=== PATIENT | male | born 1985 | race Two or more races ===

== ENCOUNTER 2024-08-06 11:28 | Inpatient (IN) | payer MEDICAID, SELFPAY ==
[2024-08-06] VITALS (9 sets, daily range): BP systolic 108–156; BP diastolic 58–88; PULSE 83–110; RESP 16–22; TEMP 36.7–38.2; O2SAT 96–100; BMI 34.5
--- NOTE | 2024-08-06 | XR_ITS ---
MRI abdomen, without contrast. MRCP Date and time of exam: August 06, 2024 1854 hrs. Indications: Elevated bilirubin and abdominal pain today, jaundice 12 days Technique: Multiple axial and coronal images of the abdomen have been obtained with the Siemens 1.5T MRI scanner. Images obtained included T1 weighted transverse images, T2-weighted transverse images, T2-weighted transverse images fat-suppressed, T2 weighted haste fat suppressed transverse images, T1 weighted images, in and out of phase images, T2-weighted coronal images, breath hold, T2 weighted haze coronal images as well as T2 weighted coronal thick slab images, MRCP. Findings: Hepatomegaly, 23 cm Splenomegaly, 17 cm Liver is mildly irregular in contour, no focal liver lesions Thickened edematous gallbladder wall, acute cholecystitis pattern No common hepatic or common bile duct stones No definite peripancreatic edema No ascites No hydronephrosis Aorta normal size Impression: Significant hepatosplenomegaly Primary hepatocellular disease Acute acalculous cholecystitis No common hepatic or common bile duct stones
--- NOTE | 2024-08-06 12:09 | PD.EDRME ---
Rapid Medical Screening Exam RME Arrival date/time: 08/06/24 11:28 39-year-old male everyday drinker up until 07/23 presents emergency department today complaints of bloody nose and being jaundice Chief Complaint: Epistaxis/Nasal Foreign Body Time Seen by Provider: 08/06/24 11:34 Vital signs: Vital Signs Temperature 99.1 F 08/06/24 12:05 Pulse Rate 90 08/06/24 12:05 Respiratory Rate 16 08/06/24 12:05 Blood Pressure 123/76 08/06/24 12:05 Pulse Oximetry (%) 98 08/06/24 12:05 Oxygen Delivery Method Room Air 08/06/24 12:05
[2024-08-06 12:49] LABS: Basophils # (Auto) 0.1 Thou/mm3 (0.0-0.2); Basophils % (Auto) 0 % (0-2.5); Eosinophils # (Auto) 0.1 Thou/mm3 (0.0-0.5); Eosinophils % (Auto) 1 % (0-10); Hematocrit 32.1 % (41.0-53.0); Hemoglobin 11.6 g/dL (13.5-16.0); Immature Granulocytes % (Auto) 1 % (0-0); Immature Granulocytes Auto 0.12 Thou/mm3 (0.00-0.00); Lymphocytes # (Auto) 1.4 Thou/mm3 (1.0-4.8); Lymphocytes % (Auto) 10 % (10-50); Mean Corpuscular HGB Conc 36.1 g/dl (31.0-37.0); Mean Corpuscular Hemoglobin 31.9 pg (25.0-35.0); Mean Corpuscular Volume 88 fL (80-100); Monocytes # (Auto) 0.8 Thou/mm3 (0.0-0.8); Monocytes % (Auto) 6 % (0-12); Neutrophils # (Auto) 10.9 Thou/mm3 (1.8-7.7); Neutrophils % (Auto) 82 % (37-80); Nucleated Red Blood Cell % 0 /100 WBC (0); Platelet Count 333 Thou/mm3 (140-440); RDW Standard Deviation 62.9 fL (35.1-43.9); Red Blood Count 3.64 Miln/mm3 (4.50-5.90); White Blood Count 13.4 Thou/mm3 (3.8-10.6)
[2024-08-06 13:13] LABS: INR 2.6 (0.9-1.3); Partial Thromboplastin Time 31.5 Seconds (22.0-36.0); Prothrombin Time 26.9 Seconds (9.0-12.2)
[2024-08-06 13:14] LABS: Ammonia 31 uMol/L (11-32)
[2024-08-06 13:30] LABS: Alanine Aminotransferase 142 U/L (10-49); Albumin, Serum 3.2 gm/dL (3.5-5.0); Albumin/Globulin Ratio 0.8 (1.2-2.2); Anion Gap 10 (7-16); Aspartate Amino Transferase 284 U/L (0-34); BUN/Creatinine Ratio 16 Ratio (12-20); Blood Urea Nitrogen 11 mg/dL (9-23); Calcium 7.6 mg/dL (8.3-10.6); Calcium (Corrected) 8.2 mg/dL (8.5-10.1); Carbon Dioxide 20.8 mMol/L (20.0-31.0); Chloride 98 mMol/L (98-107); Creatinine (Component) 0.7 mg/dL (0.6-1.3); Estimated Creatinine Clearance 168.4 mL/min (>60); Glucose 116 mg/dL (74-106); Osmolality,Calculated 259 (275-295); Sodium 129 mMol/L (136-145); Total Protein 7.2 gm/dL (5.7-8.2); eGFR > 60 See Note
[2024-08-06 13:31] LABS: Alkaline Phosphatase 139 U/L (46-116); Lipase 72 U/L (12-53)
[2024-08-06 13:32] LABS: Bilirubin,Total 23.1 mg/dL (0.3-1.2); Potassium 2.6 mMol/L (3.4-5.1)
[2024-08-06 14:18] LABS: Hepatitis A Antibody IgM Non Reactive (Non React); Hepatitis B Core Antibody IgM Non Reactive (Non React); Hepatitis B Surface Antigen Non Reactive (Non React); Hepatitis C Antibody Non Reactive (Non React)
--- NOTE | 2024-08-06 14:32 | EDNOTE_ITS ---
ED Epistaxis RME/HPI General Chief complaint: Epistaxis/Nasal Foreign Body Stated complaint: NOSE BLEEDING ON/OFF SINCE YESTERDAY Time Seen by Provider: 08/06/24 11:34 Arrival date/time: 08/06/24 11:28 RME / HPI RME / HPI Narrative: 08/06/24 11:28 39-year-old male everyday drinker up until 07/23 presents emergency department today complaints of bloody nose and being jaundice MAIN ED EVALUATION 39 year old male with history of fatty liver presents to the ED for evaluation of nose bleed beginning this morning. States he had been sick with URI and shortly after blowing his nose this morning began to bleed from the left nostril. States he was unable to control the bleeding at home, prompting ED visit. No trauma reported. Denies any other bleeding. Denies blood in stool; stool was dark brown this morning. Denies fevers, pain, vomiting, diarrhea, abdominal pain, or urinary symptoms. States he was drinking about 2 beers daily after work. Stated on 07/23/2024 noticed his skin was yellowing and stopped drinking. Last drank alcohol 12 days ago. Denies seeking any medical attention since changes in skin color. Related Data Home Medications ?Medication ?Instructions ?Recorded ?Confirmed No Known Home Medications 09/22/23 09/22/23 Allergies Allergy/AdvReac Type Severity Reaction Status Date / Time pregabalin [From Lyrica] Allergy Severe Swelling Verified 08/06/24 11:33 of Lip/Tongue/Throat tramadol Allergy Severe Nausea Verified 08/06/24 11:33 Review of Systems Review of Systems Narrative Review of Systems: GEN: No fever, no chills, no weight loss EYES: No discharge, no visual changes, no pain HEENT: +nose bleed. No ear pain, no congestion, no sore throat PULM: No shortness of breath, no cough, no congestion CV: No chest pain, no palpitations GI: No nausea, no vomiting, no diarrhea, no pain, no constipation : No frequency, no urgency and no dysuria MUSC/SKEL No joint pain, no back pain SKIN: No rash, +skin yellowing NEURO: No weakness, no headache Past Medical History Past Medical History CARDIAC: Negative Congestive Heart Failure RESPIRATORY: Negative Chronic Obstructive Pulmonary Disease (COPD) GENITOURINARY: Negative Renal Disease ENDOCRINE: Negative Diabetes Mellitus Type 1 or Diabetes Mellitus Type 2 Social History SMOKING STATUS: Never smoker ED Exam Narrative Physical exam: GENERAL APPEARANCE: Well hydrated, well nourished, in no acute distress. Jaundice. VITALS: All vitals were reviewed and the pulse ox is 98% on room air which is normal according to my interpretation. HEENT: Normocephalic, atramatic, EOMI, EACs are patent. scleral icterus. There is no bulge or retraction. Throat without erythema or exudate. Moist oromucosa. No jaundice NECK: Supple, no JVD or bruits. CARDIOVASCULAR: Heart regular without S3-S4 or murmur. No rubs or gallops. LUNGS/CHEST: Clear to auscultation bilaterally. No rales, rhonchi, or wheezing. Normal inspection. ABDOMEN: Soft, nontender, with normal bowel sounds. No pulsatile masses. No rebound, rigidity, or guarding. No incarcerated hernia. Normal inspection and palpation. EXTREMITIES: Normal inspection and palpation. No edema, clubbing, or cyanosis. Intact CSM SKIN: Jaundice. Warm and dry without rashes. MUSCULOSKELETAL: Normal inspection. No gross deformity, full ROM all extremities NEURO: Alert and oriented x3. Cranial nerves II through XII grossly intact. There are no other motor or sensory deficits noted. PSYCHIATRIC: Normal mood and affect. No psychosis. Course Quality Measures none Orders Category Date Time Status MRI Screening NOW Care 08/06/24 14:30 Active MR MRCP Stat Exams 08/06/24 Ordered Ammonia Stat Lab 08/06/24 12:22 Completed CBC Stat Lab 08/06/24 12:22 Completed Comprehensive Metabolic Panel Stat Lab 08/06/24 12:22 Completed HIV (1&2) Antibody Rapid Stat Lab 08/06/24 12:22 Completed Hepatitis Acute Panel Stat Lab 08/06/24 12:22 Completed Lipase Stat Lab 08/06/24 12:22 Completed Partial Thromboplastin Time Stat Lab 08/06/24 12:22 Completed Prothrombin Time with INR Stat Lab 08/06/24 12:22 Completed Calcium Gluconate 10% Inj Med 08/06/24 14:51 Discontinued 1 gm IV X1 ONE Oxymetazoline Jadiel [place] 0.05% [Afrin Nasal [place]] Med 08/06/24 14:49 Discontinued See Dose Instructions NASAL X1 ONE POTASSIUM CHL 10 mEq IVPB [Kcl Ivpb] Med 08/06/24 14:49 Discontinued 10 meq in 100 ml IV Q1H Potassium Chloride [K-Dur] Med 08/06/24 14:49 Discontinued 40 meq PO X1 ONE Sodium Chloride 0.9% 1000 ml [Ns] 1,000 ml Med 08/06/24 14:30 Active IV 125 mls/hr Vital Signs Vital signs: Vital Signs Temperature 99.1 F 08/06/24 12:05 Pulse Rate 90 08/06/24 12:05 Respiratory Rate 16 08/06/24 12:05 Blood Pressure 123/76 08/06/24 12:05 Pulse Oximetry (%) 98 08/06/24 12:05 Oxygen Delivery Method Room Air 08/06/24 12:05 Epistaxis MDM Narrative MDM Narrative:: IMayra, am scribing for and in the presence of . CBC showing a white count of 13,000. Hemoglobin of 11.6. Sodium of 129. Potassium of 2.6. And we are giving the patient potassium supplement. Lipase is negative. The rest of CMP is negative. Calcium is 7.6 and we are giving him some calcium by IV. Ammonia is negative. Pro time is 97. Hepatitis panel is negative. HIV 1 and 2 is negative. Total bilirubin though is 23 which is skyhigh. The patient said that he did have a history of fatty liver but never diagnosed with liver cirrhosis. AST ALT and alk phos are slightly elevated as well. Nosebleed has subsided in the emergency department. In fact it stopped after the nosebleed gel was applied. No further intervention necessary at this time. I advised the patient not to blow his nose and out to pick in his nose. There is no postnasal drip. For the elevated total bilirubin which is a surprise, the patient is supposed to get a MRCP as I ordered. I am giving the patient IV fluid as well. And I will keep the patient NPO. For his coagulopathy, I am going to order for 1 unit of FFP. 6 PM, still pending MRCP, the patient is stable and is signed out to Dr. Cates Critical care time is approximately 35 minutes excluding any procedure. The high probability of sudden, clinically significant deterioration in the patient?s condition required the highest level of my preparedness to intervene urgently. The services I provided to this patient were to treat and/or prevent clinically significant deterioration. Services included the following: chart data review, r eviewing nursing notes and/or old charts, documentation time, sap business intelligence consultant collaboration regarding findings and treatment options, medication orders and management, direct patient care, vital sign assessments and ordering, interpreting and reviewing diagnostic studies and lab tests. Aggregate critical care time includes only time during which I was engaged in work directly related to the patient?s care, as described above, whether at bedside or elsewhere in the Emergency Department. It did not include time spent performing other reported procedures or the services of residents, students, nurses or physician assistants. Patient data External records reviewed:: [facility] previous records (I reviewed ED visit on 09/22/2023) Clinical information provided by:: patient Social determinants that could affect healthcare access:: alcohol use (2 beers after work daily although states he last drank 12 days ago ) Patient has the following chronic illnesses:: Fatty liver How is presenting disease/condition affected by chronic disease/condition?: exacerbated by Evaluation data The following diagnostics were reviewed and interpreted by me:: lab results and radiology exam(s) Lab and/or radiology exams considered but not ordered:: None Interpretation Summary: As noted above Medications / Prescriptions Medications or Prescriptions considered but not ordered:: None Medication administrations:: Medication Administration History Sodium Chloride (Ns) 1,000 mls @ 125 mls/hr IV .Q8H ONE Stop: 08/06/24 22:29 Last Admin: 08/06/24 15:20 Dose: 125 mls/hr Documented By: CHAVA Discontinued Medications Calcium Gluconate (Calcium Gluconate 10% Inj 1 Gm/10 Ml Vial) 1 gm IV X1 ONE Stop: 08/06/24 14:52 Last Admin: 08/06/24 15:18 Dose: 1 gm Documented By: CHAVA Potassium Chloride (Kcl Ivpb) 10 meq in 100 mls @ 100 mls/hr IV Q1H STA Stop: 08/06/24 15:48 Last Infusion: 08/06/24 16:20 Dose: Infused Documented By: Admin: 08/06/24 15:18 Dose: 100 mls/hr Documented By: CHAVA Oxymetazoline HCl (Oxymetazoline Jadiel [place] 0.05% 15 Ml Btl) 0 spray NASAL X1 ONE Stop: 08/06/24 14:50 Last Admin: 08/06/24 15:15 Dose: 1 spray Documented By: CHAVA Potassium Chloride (Potassium Chloride 20 Meq Tabcr) 40 meq PO X1 ONE Stop: 08/06/24 14:50 Last Admin: 08/06/24 15:16 Dose: 40 meq Documented By: CHAVA See above Consultations Consultation(s) initiated? (list below): No Diagnosis Most likely diagnosis given after review of the tests above:: Epistaxis Admission Indicated Admission indicated?: not indicated Admission Request Was there a request for admission?: No Disposition Plan Disposition Plan: other (specify) (Signed out pending [facility]) Discharge Plan Plan Disposition Comment: Stable at signout pending [facility] Prescriptions/Referrals Prescriptions/Med Rec: No Action No Known Home Medications Referrals: Arturo Jean MD [Primary Care Provider] - In 1 week Problem List Clinical Impression: Epistaxis, Coagulopathy, Hyperbilirubinemia, Acute hypokalemia, Hypocalcemia Patient/Caregiver Discharge Instructions Print Language: Palestinian
[2024-08-06] MEDS: OXYMETAZOLINE NAS SPRY 0.05% 15 ML BTL NASAL (15:15)
[2024-08-06] MEDS: POTASSIUM CHLORIDE 20 mEq TABCR 40 MEQ PO (15:16)
[2024-08-06] MEDS: CALCIUM GLUCONATE 10% INJ 1 GM/10 ML VIAL IV (15:18)
[2024-08-06] MEDS: POTASSIUM CHL 10 mEq IVPB 10 MEQ/100 ML BAG 100 MEQ IV (15:18)
[2024-08-06] MEDS: SODIUM CHLORIDE 0.9% 1000 ML 1,000 ML 125 ML IV (15:20)
[2024-08-06 15:24] LABS: HIV (1&2) Antibody Rapid Non-Reactive
--- NOTE | 2024-08-06 18:06 | XR_ITS ---
Examination: CT abdomen with intravenous contrast CT pelvis with intravenous contrast 2-D coronal reconstructions 2-D sagittal reconstructions Date and time of exam:August 06, 20242025 hrs. Comparison November 04, 2021 Indications: Jaundice on clinical examination today. CTDI: vol (mGy) 10.4 DLP: (mGycm) 740 Technique: Multiple axial sections of the abdomen and pelvis have been obtained. 64 slice high-resolution scanner used. 3 mm axial sections have been obtained, post intravenous injection 60 cc [id number] 2-D sagittal, coronal reconstructions obtained. Low dose protocols were performed. One or more of the following dose reduction techniques were used; automated exposure control, adjustment of the mA and/or KV according to patient size, use of iterative reconstruction technique. Findings: Diffuse fatty infiltration throughout the liver, hepatomegaly 24 cm liver irregular in contour Splenomegaly AP dimension 14 cm Gallbladder wall thickening and edema No pancreatic or adrenal mass No renal or ureteral calculi, no hydronephrosis No bowel obstruction No CT findings of appendicitis or diverticulitis Urinary bladder shows mild wall thickening, cystitis pattern Moderate osteopenia Impression: Cirrhosis, hepatomegaly, diffuse fatty infiltration throughout the liver Splenomegaly Acute calculus cholecystitis,. Normal appendix
--- NOTE | 2024-08-06 18:06 | XR_ITS ---
Examination: Abdomen sonogram, Limited Date and time of exam: August 06, 2024 1813 hrs. Indications: Jaundice today Technique: Real-time eli scale transabdominal sonographic images of the upper abdomen obtained. Findings: Negative for gallstones Gallbladder wall is thickened 0.4 cm Common bile duct 0.4 cm Pancreatic head 3.7 cm Liver 19 cm fatty infiltration no focal liver lesions Normal hepatopedal portal venous flow Patent IVC Impression: Suspicious for acute acalculous cholecystitis Significant hepatomegaly fatty liver
[2024-08-06] MEDS: POTASSIUM CHLORIDE 10% 20 MEQ/15 ML UDC 40 MEQ PO (18:26)
--- NOTE | 2024-08-06 18:28 | PD.EDADDENDU ---
Emergency Room Addendum <Chuyita Jean - Last Filed: 08/06/24 22:04> Addendum Narrative: 1800: Care assumed from , the previous shift emergency physician. Past medical, surgical, social and family history reviewed. Vitals and home medications reviewed. Results and treatment plan discussed. I will assume the care of the patient at this time and will follow the patient, pending MRCP. Please refer to the emergency department record for history and examination from initial visit. I reviewed all diagnostic test results. My interpretation of the EKG is My interpretation of the chest x-ray is My review of the CT report is Blood tests and urine tests At this point, diagnoses include Treatment here included Significant improvement 2132: Discussed case with [Dr. Portillo] from [general surgery] regarding [consultation]. Discussed patients ED course, exam findings, labs, and radiology results. States the patient is not a surgical candidate at this time due to his liver failure. 2136: Discussed case with [Dr. Valderrama] from [GI] regarding [consultation]. Discussed patients ED course, exam findings, labs, and radiology results. States to admit the patient. Agrees to consult. 2201: Discussed case with [the resident physician, attending Dr. Melendez] from Hospitalist service regarding admission. Discussed patients ED course, exam findings, labs, and radiology results. The Hospitalist [agrees] to accept the patient for admission. <Cuate Cates MD - Last Filed: 08/06/24 22:28> Addendum Narrative: 1800: Care assumed from , the previous shift emergency physician. Past medical, surgical, social and family history reviewed. Vitals and home medications reviewed. Results and treatment plan discussed. I will assume the care of the patient at this time and will follow the patient, pending MRCP. Please refer to the emergency department record for history and examination from initial visit. I reviewed all diagnostic test results. At this point, diagnoses include acute liver failure, acute cholecystitis, hypokalemia, hypocalcemia, epistaxis, coagulopathy, and UTI. Treatment here included KCl, Zosyn, and calcium gluconate. He remained stable. 2132: Discussed case with [Dr. Portillo] from [general surgery] regarding [consultation]. Discussed patient's ED course, exam findings, labs, and radiology results. States the patient is not a surgical candidate at this time due to his liver failure. 2136: Discussed case with [Dr. Valderrama] from [GI] regarding [consultation]. Discussed patient's ED course, exam findings, labs, and radiology results. States to admit the patient. Agrees to consult. 2201: Discussed case with [the resident physician, attending Dr. Melendez] from Hospitalist service regarding admission. Discussed patients ED course, exam findings, labs, and radiology results. The Hospitalist [agrees] to accept the patient for admission.
[2024-08-06 18:49] LABS: Collection Type, Urine Clean Catch
[2024-08-06 19:03] LABS: Amphetamine/Methamp Scrn,U Negative (Negative); Bacteria,Urine 1+; Barbiturate Screen,Urine Negative (Negative); Benzodiazepines Screen,Urine Negative (Negative); Benzoylecgonine Screen, Ur Negative (Negative); Bilirubin,Urine 4+ (Negative); Blood,Urine Negative (Negative); Budding Yeast,Urine Present; Clarity,Urine Turbid (Clear/Hazy); Color,Urine Drk-Yellow (Lt Yel-Yel); Fentanyl Screen,Urine Negative (Negative); Glucose, Urine Negative (Negative); Ketones,Urine Negative (Negative); Leukocyte Esterase,Urine Negative (Negative); Nitrite,Urine Negative (Negative); Opiate Screen,Urine Negative (Negative); PH,Urine 6.5 (5.0-7.0); Protein,Urine 1+ (Neg - Trace); RBC,Urine 22 /hpf (0-3); Specific Gravity,Urine 1.022 (1.001-1.035); Squamous Epithelial Cell,Urine < 1 /hpf (0-5); THC Screen,Urine Negative (Negative); Urobilinogen,Urine Negative mg/dL (0.0-1.0); WBC,Urine 29 /hpf (0-5)
[2024-08-06 19:03] LABS: Alcohol, Blood Medical < 10.0 mg/dL (0-10.0); Amylase 56 U/L (30-118); Magnesium 2.4 mg/dL (1.6-2.6)
[2024-08-06 19:05] LABS: Culture Indicated,Urine Yes
--- NOTE | 2024-08-06 20:14 | PC.NURSE ---
pt to us via wheelchair at this time.
--- NOTE | 2024-08-06 20:35 | PRELIM_ITS ---
MR Cholangiopancreatography without intravenous contrast. August 06, 2024 1844 hours Clinical Histo ry: Total bilirubin 23 Comparison: No prior study is available for comparison. Findings:The liver is enlarged measuring 23 cm. Mild periportal edema is seen. Mild gallbladder wall thickening with peric holecystic fluid is seen. No evidence of gallbladder calculus. There is no intrahepatic or extrahepat ic biliary duct dilatation. The common bile duct is normal in caliber at 3 mm without evidence of int raluminal calculus/ stricture. The pancreatic duct is not dilated. The spleen is enlarged measuring 1 7 cm. Nonspecific perinephric fat stranding is noted bilaterally. There is mild thickening of the adr enals. The pancreas appears unremarkable.No evidence of bowel obstruction.The marrow signal appears u nremarkable to the extent visualized.The lung bases are clear.Impression:Mild gallbladder wall thicke garry with pericholecystic fluid, suspicious for acute cholecystitis.No evidence of biliary obstructio n.Hepatosplenomegaly. Report Electronically Signed By: Debora Rivas 08/06/2024 8:35:41 PM [EST]
[2024-08-06] MEDS: PIPER/TAZO INJ 3.375 GM in SODIUM CHLORIDE 0.9% (P) 50 ML IV (21:41)
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
[2024-08-06] MEDS: CEFEPIME INJ 2 GM in SODIUM CHLORIDE 0.9% (P) 50 ML IV (23:27)
[2024-08-06] MEDS: metroNIDAZOLE/NS 500 MG IVPB 500 MG/100 ML BAG 200 MG IV (23:30)
[2024-08-06 23:33] LABS: Calcium, Ionized 3.9 mg/dL (4.6-5.6)
[2024-08-07] VITALS (15 sets, daily range): BP systolic 114–133; BP diastolic 59–70; PULSE 90–102; RESP 18–29; TEMP 35.9–38.1; O2SAT 94–97; BMI 34.9
[2024-08-07 00:28] LABS: Bilirubin,Direct 16.5 mg/dL (0.0-0.3)
[2024-08-07] MEDS: POTASSIUM CHLORIDE 20 mEq TABCR 40 MEQ PO (00:34)
[2024-08-07 00:36] LABS: Iron 98 mcg/dL (65-175)
[2024-08-07 00:52] LABS: Ferritin 603 ng/mL (10.5-307.3); Percent Iron Saturation 47 % (20-55); Total Iron Binding Capacity 208 mcg/dL (250-425); Unsaturated Iron Binding 110 (225-295)
[2024-08-07 01:41] LABS: Mono Screen Negative (Negative)
[2024-08-07] MEDS: CEFEPIME INJ 2 GM in SODIUM CHLORIDE 0.9% (P) 50 ML IV ×3 (05:04→21:18)
[2024-08-07] MEDS: metroNIDAZOLE/NS 500 MG IVPB 500 MG/100 ML BAG 200 MG IV ×3 (05:06→21:19)
[2024-08-07 05:59] LABS: Misc Send Out* See Sep Rpt
[2024-08-07 06:00] LABS: Basophils % (Auto) 0 % (0-2.5); Eosinophils # (Auto) 0.1 Thou/mm3 (0.0-0.5); Eosinophils % (Auto) 1 % (0-10); Hematocrit 23.3 % (41.0-53.0); Immature Granulocytes % (Auto) 1 % (0-0); Immature Granulocytes Auto 0.17 Thou/mm3 (0.00-0.00); Lymphocytes # (Auto) 1.9 Thou/mm3 (1.0-4.8); Lymphocytes % (Auto) 14 % (10-50); Mean Corpuscular HGB Conc 35.6 g/dl (31.0-37.0); Mean Corpuscular Volume 90 fL (80-100); Monocytes # (Auto) 0.9 Thou/mm3 (0.0-0.8); Monocytes % (Auto) 7 % (0-12); Neutrophils # (Auto) 10.5 Thou/mm3 (1.8-7.7); Neutrophils % (Auto) 77 % (37-80); Nucleated Red Blood Cell % 0 /100 WBC (0); Platelet Count 329 Thou/mm3 (140-440); RDW Standard Deviation 65.6 fL (35.1-43.9); Red Blood Count 2.59 Miln/mm3 (4.50-5.90); White Blood Count 13.7 Thou/mm3 (3.8-10.6)
[2024-08-07 06:09] LABS: Hemoglobin 8.3 g/dL (13.5-16.0)
[2024-08-07 06:15] LABS: Partial Thromboplastin Time 30.3 Seconds (22.0-36.0)
[2024-08-07 06:20] LABS: Parathyroid Hormone Intact 32.9 pg/ml (18.5-88.0)
[2024-08-07 06:23] LABS: INR 2.2 (0.9-1.3); Prothrombin Time 22.7 Seconds (9.0-12.2)
[2024-08-07 06:30] LABS: Alanine Aminotransferase 115 U/L (10-49); Albumin, Serum 2.9 gm/dL (3.5-5.0); Albumin/Globulin Ratio 0.9 (1.2-2.2); Alkaline Phosphatase 114 U/L (46-116); Anion Gap 7 (7-16); Aspartate Amino Transferase 236 U/L (0-34); BUN/Creatinine Ratio 20 Ratio (12-20); Blood Urea Nitrogen 16 mg/dL (9-23); Calcium 7.6 mg/dL (8.3-10.6); Calcium (Corrected) 8.5 mg/dL (8.5-10.1); Carbon Dioxide 22.8 mMol/L (20.0-31.0); Chloride 103 mMol/L (98-107); Cholesterol 158 mg/dL (132-200); Creatinine (Component) 0.8 mg/dL (0.6-1.3); Estimated Creatinine Clearance 145.6 mL/min (>60); Globulin 3.4 gm/dL (2.3-3.5); Glucose 111 mg/dL (74-106); HDL Cholesterol < 5 mg/dL (40-60); Magnesium 2.4 mg/dL (1.6-2.6); Osmolality,Calculated 268 (275-295); Phosphorous 2.2 mg/dL (2.4-5.1); Potassium 3.4 mMol/L (3.4-5.1); Sodium 133 mMol/L (136-145); Thyroid Stimulating Hormone 1.04 uIU/mL (0.55-4.78); Total Protein 6.3 gm/dL (5.7-8.2); Triglycerides 455 mg/dL (30-150); eGFR > 60 See Note
--- NOTE | 2024-08-07 06:50 | PC.NURSE ---
Recvd order for radha drain, No IR available today, Too LARSON made aware.
[2024-08-07 07:05] LABS: Bilirubin,Total 20.1 mg/dL (0.3-1.2)
--- NOTE | 2024-08-07 08:45 | PC.SS ---
SS follow up note; Pending Dr. Valderrama's Rec's as well as Surgery rec's.
--- NOTE | 2024-08-07 09:20 | ESPR_ITS ---
<Statement entered by Chriss Lyon MD - 08/07/24 17:40> Patient was examined bedside this morning, surgery said no active intervention, IR is not available today, will monitor his nose bleed closely. poor prognosis explained to the patient . his last drink was 2 weeks ago . GI on board . I discussed with and supervised my co-resident involved in the care of this patient. I agree with the assessment and plan as documented above. Chriss Lyon,PGY-3 Disclaimer: Despite multiple revisions, due to the dictation software being used, the document below may not be free of grammatical errors including phonetic/typographic errors. However, this does not deter from our commitment to providing health care in the patient's best interest in mind. Documentation for date of: 08/07/24 Subjective Subjective Interval history: Patient was seen and examined at bedside this AM. No acute exents overnight. Patient tolerating diet, adequate urine output and mentation is at baseline. Patient endorses improvement of his nosebleed. Also endorses 1 episode of dark stool this morning which he thinks is due to swallowing a lot of blood In the ED patient received 1 unit FFP. Patient had MRCP done which showed acute acalculous cholecystitis. On exam patient is nontender to palpation in all abdominal quadrants. Acalculous cholecystitis unlikely GI, Dr. Valderrama consulted and closely following the case. Appreciate recommendations General Surgery, Dr Portillo consulted and closely following. Appreciate recommendation Exam Vital Signs Temp Pulse Resp BP Pulse Ox O2 Del Method 97.8 F 99 20 122/70 94 L Room Air 08/07/24 08:00 08/07/24 08:00 08/07/24 08:00 08/07/24 08:00 08/07/24 08:00 08/07/24 08:00 Narrative Exam Constitutional Alert, oriented x 3 and comfortable. Young obese male, scleral icterus, generalized jaundice HEENT Vision grossly intact. Patent nares. Trachea midline Respiratory Chest normal on inspection and clear auscultation bilaterally Cardiovascular S1 and S2 audible, RRR. No murmurs carotid bruit. No gross JVD. Abdominal Soft, obese, mildly distended, striae, positive fluid thrill and shifting dullness and non tender to palpation in all quadrants. BS + negative asterixis Genitourinary No bladder tenderness, no flank pain. Normal to palpation Musculoskeletal Extremities tone within normal limits. No LE edema. Neurological CN II - XII grossly intact. Extremity motor and sensation grossly intact. Skin Warm, dry and intact. No apparent lesions. Psychiatric Patient has good affect, is cooperative Objective Labs 08/08/24 05:00 08/08/24 05:12 Labs: Laboratory Results - last 24 hr 08/06/24 08/06/24 08/06/24 12:22 18:17 18:40 WBC 13.4 H RBC 3.64 L Hgb 11.6 L Hct 32.1 L MCV 88 MCH 31.9 MCHC 36.1 RDW Std Deviation 62.9 H Plt Count 333 Neut % (Auto) 82 H Lymph % (Auto) 10 Motley % (Auto) 6 Eos % (Auto) 1 Baso % (Auto) 0 Neut # (Auto) 10.9 H Lymph # (Auto) 1.4 Motley # (Auto) 0.8 Eos # (Auto) 0.1 Baso # (Auto) 0.1 Immature Gran # (Auto) 0.12 H Absolute Nucleated RBC 0.00 Immature Gran % 1 H Nucleated RBC % 0 PT 26.9 H INR 2.6 H APTT 31.5 Sodium 129 L Potassium 2.6 L* Chloride 98 Carbon Dioxide 20.8 Anion Gap 10 BUN 11 Creatinine 0.7 Estim Creat Clear Calc 168.4 eGFR > 60 BUN/Creatinine Ratio 16 Glucose 116 H Calculated Osmolality 259 L Calcium 7.6 L Corrected Calcium 8.2 L Ionized Calcium Phosphorus Magnesium 2.4 Iron TIBC Iron Saturation Unsat Iron Binding Ferritin Total Bilirubin 23.1 H* Direct Bilirubin AST 284 H ALT 142 H Alkaline Phosphatase 139 H Ammonia 31 Total Protein 7.2 Albumin 3.2 L Globulin 4.0 H Albumin/Globulin Ratio 0.8 L Triglycerides Cholesterol LDL Cholesterol, Calc HDL Cholesterol Cholesterol/HDL Ratio Amylase 56 Lipase 72 H TSH PTH Intact Ur Collection Type Clean Catch Urine Color Drk-Yellow A Urine Clarity Turbid A Urine pH 6.5 Ur Specific Tarpley 1.022 Urine Protein 1+ A Urine Glucose (UA) Negative Urine Ketones Negative Urine Blood Negative Urine Nitrite Negative Urine Bilirubin 4+ A Urine Urobilinogen (Auto) Negative Ur Leukocyte Esterase Negative Urine RBC 22 H Urine WBC 29 H Ur Squamous Epith Cells < 1 Urine Bacteria 1+ A Urine Yeast (Budding) Present A Ur Culture Indicated? Yes Urine Opiates Screen Negative Urine Fentanyl Screen Negative Ur Barbiturates Screen Negative U Amphetamin/Meth Scrn Negative U Benzodiazepines Scrn Negative U Cocaine Metab Screen Negative U Marijuana (THC) Screen Negative Ethyl Alcohol < 10.0 Hepatitis A IgM Ab Non Reactive Hep Bs Antigen Non Reactive Hep B Core IgM Ab Non Reactive Hepatitis C Antibody Non Reactive Monoscreen Negative HIV 1&2 Antibody Rapid Non-Reactive Blood Type O Positive Antibody Screen NEGATIVE Blood Bank Wristband ID Yes Blood Bank Comment FFP Ready 08/06/24 08/07/24 23:23 05:32 WBC 13.7 H RBC 2.59 L Hgb 8.3 L D Hct 23.3 L MCV 90 MCH 32.0 MCHC 35.6 RDW Std Deviation 65.6 H Plt Count 329 Neut % (Auto) 77 Lymph % (Auto) 14 Motley % (Auto) 7 Eos % (Auto) 1 Baso % (Auto) 0 Neut # (Auto) 10.5 H Lymph # (Auto) 1.9 Motley # (Auto) 0.9 H Eos # (Auto) 0.1 Baso # (Auto) 0.0 Immature Gran # (Auto) 0.17 H Absolute Nucleated RBC 0.00 Immature Gran % 1 H Nucleated RBC % 0 PT 22.7 H D INR 2.2 H APTT 30.3 Sodium 133 L Potassium 3.4 D Chloride 103 Carbon Dioxide 22.8 Anion Gap 7 BUN 16 Creatinine 0.8 Estim Creat Clear Calc 145.6 eGFR > 60 BUN/Creatinine Ratio 20 Glucose 111 H Calculated Osmolality 268 L Calcium 7.6 L Corrected Calcium 8.5 Ionized Calcium 3.9 L Phosphorus 2.2 L Magnesium 2.4 Iron 98 TIBC 208 L Iron Saturation 47 Unsat Iron Binding 110 L Ferritin 603 H Total Bilirubin 20.1 H* D Direct Bilirubin 16.5 H AST 236 H ALT 115 H Alkaline Phosphatase 114 D Ammonia Total Protein 6.3 Albumin 2.9 L Globulin 3.4 Albumin/Globulin Ratio 0.9 L Triglycerides 455 H Cholesterol 158 LDL Cholesterol, Calc TNP HDL Cholesterol < 5 L Cholesterol/HDL Ratio 31.0 H Amylase Lipase TSH 1.04 PTH Intact 32.9 Ur Collection Type Urine Color Urine Clarity Urine pH Ur Specific Tarpley Urine Protein Urine Glucose (UA) Urine Ketones Urine Blood Urine Nitrite Urine Bilirubin Urine Urobilinogen (Auto) Ur Leukocyte Esterase Urine RBC Urine WBC Ur Squamous Epith Cells Urine Bacteria Urine Yeast (Budding) Ur Culture Indicated? Urine Opiates Screen Urine Fentanyl Screen Ur Barbiturates Screen U Amphetamin/Meth Scrn U Benzodiazepines Scrn U Cocaine Metab Screen U Marijuana (THC) Screen Ethyl Alcohol Hepatitis A IgM Ab Hep Bs Antigen Hep B Core IgM Ab Hepatitis C Antibody Monoscreen HIV 1&2 Antibody Rapid Blood Type Antibody Screen Blood Bank Wristband ID Blood Bank Comment Quality Measures Quality Measures none Assessment & Plan Assessment Current Active Medications: Generic Name Dose Route Start Last Admin Trade Name Freq PRN Reason Stop Dose Admin Acetaminophen 650 mg 08/06/24 23:06 Acetaminophen 325 Mg Tablet PO 09/05/24 22:41 Q8HR PRN Pain 1-3 and/or Fever >101 Folic Acid 1 mg 08/07/24 09:00 Folic Acid 1 Mg Tablet PO 08/12/24 08:59 BID EFE Furosemide 20 mg 08/07/24 09:00 Furosemide Inj 10 Mg/Ml 4ml Vial IVP 09/06/24 08:59 QDAY EFE Cefepime HCl 2 gm/ Sodium 50 mls @ 100 mls/hr 08/07/24 06:00 08/07/24 05:04 Chloride IV 08/13/24 22:45 100 mls/hr Q8HR EFE Administration Metronidazole 500 mg in 100 mls @ 200 mls/hr 08/07/24 06:00 08/07/24 05:06 Flagyl 500 Mg Iv IV 08/14/24 05:59 200 mls/hr Q8HR EFE Administration Lactulose 10 gm 08/07/24 09:00 Lactulose Syrup 20 Gm/30 Ml Udc PO 09/06/24 08:59 QDAY EFE Protocol Lorazepam 0.5 mg 08/06/24 23:48 Lorazepam 0.5 Mg Tablet PO 08/11/24 23:47 Q4HR PRN CIWA Score 2-6 Lorazepam 1 mg 08/06/24 23:48 Lorazepam 0.5 Mg Tablet PO 08/11/24 23:47 Q4HR PRN CIWA SCORE 7-11 Lorazepam 2 mg 08/06/24 23:48 Lorazepam 0.5 Mg Tablet PO 08/11/24 23:47 Q4HR PRN CIWA SCORE 12-15 Ondansetron HCl 4 mg 08/06/24 22:42 Ondansetron Inj 2 Mg/Ml Inj 2 Ml IV 09/05/24 22:41 Q6H PRN NAUSEA OR VOMITING Protocol Spironolactone 25 mg 08/07/24 09:00 Spironolactone 25 Mg Tablet PO 09/06/24 08:59 BID [facility] Thiamine HCl 100 mg 08/07/24 09:00 Thiamine 100 Mg Tablet PO 08/12/24 08:59 BID EFE Plan 39-year-old male with past medical history of undiagnosed hypertension, recently diagnosed cirrhosis secondary to alcohol use disorder presenting to the ED on 08/06 with nosebleed and yellow skin will be admitted for treatment of acute calculus cholecystitis with IV antibiotics, general surgery and GI have been consulted and are following the patient. 1. Acute blood loss anemia secondary to epistaxis 2. Coagulopathy Patient presented with epistaxis since last night and endorses swallowing a lot of blood as well. This morning he had some dark stools. On admission patient's Hb 11.6 which down trended to 8.4 PT 22.7, INR 2.1, APTT 30.3 In the ED patient received 1 unit FFP and vitamin K 5 Mg SC x 1 Plan: ? Type and screen ? 2 units PRBC ordered for standby ? 1 unit FFP ordered for standby ? Repeat H&H and coagulation panel at 2 PM 3. Decompensated alcoholic cirrhosis with coagulopathy 4. Hyperbilirubinemia 5. Transaminitis On admission patient presented with epistaxis. He has a 15-year history of alcohol use, previously drank 2 beers a day along with 2?3 shots a day. Last drink on 07/23/2024. On exam patient has scleral icterus, generalized jaundice, abdominal striae and shifting dullness on percussion. On gallbladder ultrasound liver was 19 cm with fatty infiltration. On admission AST 284, ALT 142, ALP 139. Down trended to AST 236, ALT 115, ALP 114. Total bilirubin on admission 23.1 down trended to 20.1. Urinalysis significant for bilirubin 4+ Ddx: Alcoholic hepatitis , autoimmume, Ramses's Madrey's score 78.5. He scored >32 points indicates poor prognosis and patient may benefit from glucocorticoid therapy Child-Bueno class C. Life expectancy 1-3 years. Abdominal?surgery perioperative mortality: 82% Meld?Na : 29 points; 27?8/3 32% 90-day mortality Plan: ? Low-salt diet ? Monitor CMP and coag panel. - Pending workup for autoimmune hepatitis including IgG,BEN, LKM1,ALC1, ceruloplasmin, iron panel and ferritin ? Lactulose 10 g p.o. daily, to titrate as necessary to achieve 2?3 bowel movements per day for hepatic encephalopathy prophylaxis. ? Cefepime 2 g IV Q8 hourly for SBP prophylaxis [patient is Child-Bueno class C] started on [08/07? ? Lasix 20 Mg IV daily for ascites ? Spironolactone 25 Mg p.o. twice daily for ascites ? Started on prednisolone 40 Mg p.o. daily [08/07- ] for 28 days, to taper over 2-4 weeks after. Juve et. al 1977 found reduced 30 day mortality with steroid therapy in alcoholic hepatitis ? GI, Dr. Valderrama consulted and is closely following the case. Appreciate recommendation 6. Alcohol use disorder He has a 15-year history of alcohol use, previously drank 2 beers a day along with 2?3 shots a day. Last drink on 07/23/2024. Plan: ? CIWA protocol ? Folic acid 1 Mg p.o. twice daily ? Thiamine 100 Mg p.o. twice dailyr 7. Elevated lipase 8. Leukocytosis 9. Unlikely acalculous cholecystitis Lipase 72 WBC 13.7 MRCP mild thickening of gallbladder wall suggestive of acalculous cholecystitis. Patient also has decompensated alcoholic cirrhosis, the mild thickening of the gallbladder wall may be due to edema. Plan: ? Metronidazole 500 Mg IV Q8 hourly started on [08/07? 10. Hypophosphatemia Phosphorus 2.2 Plan: ? Neutra-Phos 1 packet x 1 Health maintenance: Disposition: Monitor hemoglobin and coagulation panel. Awaiting GI consult Diet: Low salt diet Lines: pIVs GI Prophylaxis: None Thrombo Prophylaxis: SCDs Code status: FULL CODE Plan of care discussed with Attending Dr. Hartley and PGY3 Dr. Sonali Baugh MD PGY 1 Attending Provider Attestation/Addendum Jessica, Flor Hartley, DO, attest that I was physically present for the kaye portions of the service and evaluated the patient with the resident and I reviewed and discussed the case with the resident and agree with the resident's findings and plans of care as documented above Patient seen and evaluated this AM. Patient is jaundiced and has been having epistaxis intermittently. Patient states his last drink was on the 9th of this month. He denies any RUQ or postprandial pain, fevers or chills. Low suspicion for acute acalculous cholecystitis given lack of symptoms and finding likely 2/2 surrounding edema and ascites. Will f/u with GI recommendations. Patient continues to have mild intermittent epistaxis which he states he had cauterized a few years ago in the ED. He denies any shortness of breath otherwise. He denies any melena or hematochezia either. Counselled patient on condition of liver disease and importance of alcohol cessation. Started on prednisone due to high Maddrey score of 90/7 for alcoholic hepatitis indicating poor prognosis. Patient received one unit of FFP upon admission which has dropped INR from 2.6 to 2.2. If he continues to have epistaxis, will transfuse another unit of FFP. 2 units of pRBCs on hold as well.
[2024-08-07] MEDS: FOLIC ACID 1 MG TABLET PO ×2 (09:46→21:03)
[2024-08-07] MEDS: SPIRONOLACTONE 25 MG TABLET PO ×2 (09:46→21:02)
[2024-08-07] MEDS: FUROSEMIDE INJ 10 MG/ML 4ML VIAL 20 MG IVP (09:46)
[2024-08-07] MEDS: THIAMINE 100 MG TABLET PO ×2 (09:46→21:03)
[2024-08-07] MEDS: NAPH,KPH MBDB 1 PACKET (1.5 GM) PO (09:46)
[2024-08-07] MEDS: PHYTONADIONE INJ 10 MG/ML AMP 5 MG SC (09:47)
[2024-08-07] MEDS: LACTULOSE SYRUP 20 GM/30 ML UDC 10 GM PO (09:47)
[2024-08-07 10:53] LABS: LDH (Lactate Dehydrogenase) 218 U/L (120-246)
--- NOTE | 2024-08-07 10:59 | PC.SS ---
Tylor Cuadra is a 39 Year old male admitted for Acute Calculous Cholecystitis. SS met with patient at bedside to discuss discharge plan. Patient reports he lives at home with his parents. Patient reports his surrogate decision maker is his father, Kip Cuadra [phone]. Patient reports he does not utilize any source of DME to assist with ambulation. Patient's PCP is Arturo Jean. Choice of Pharmacy is [facility]. At time of discharge patient will return home. Discharge plan: Home Next of Kin: Father, Kip Cuadra PCP: Arturo Jean
--- NOTE | 2024-08-07 11:09 | PC.SS ---
SS follow up note; Cholecystostomy tube pending.
[2024-08-07] MEDS: predniSONE 20 MG TABLET 40 MG PO (11:40)
[2024-08-07 12:06] LABS: Band Neutrophils (Manual) 2 % (0-6); Lymphocytes (Manual) 15 % (20-44); Monocytes (Manual) 5 % (2-9); Neutrophils (Manual) 78 % (50-70)
--- NOTE | 2024-08-07 14:43 | PC.NURSE ---
spoke with Dr. Caicedo who said to transfuse only 1 prbc at this time
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
--- NOTE | 2024-08-07 16:11 | PC.NURSE ---
clarified with Dr. Baugh, no transfusion of FFP today
[2024-08-07 19:56] LABS: Hematocrit 27.9 % (41.0-53.0); Hemoglobin 9.5 g/dL (13.5-16.0)
[2024-08-07 20:04] LABS: INR 2.3 (0.9-1.3); Partial Thromboplastin Time 27.9 Seconds (22.0-36.0)
[2024-08-08] VITALS (17 sets, daily range): BP systolic 104–126; BP diastolic 56–73; PULSE 84–101; RESP 12–26; TEMP 36.2–36.6; O2SAT 93–97; BMI 34.9
[2024-08-08] MEDS: CEFEPIME INJ 2 GM in SODIUM CHLORIDE 0.9% (P) 50 ML IV (05:34)
[2024-08-08] MEDS: metroNIDAZOLE/NS 500 MG IVPB 500 MG/100 ML BAG 200 MG IV (05:36)
[2024-08-08 05:59] LABS: Basophils % (Auto) 0 % (0-2.5); Eosinophils # (Auto) 0.2 Thou/mm3 (0.0-0.5); Eosinophils % (Auto) 1 % (0-10); Immature Granulocytes % (Auto) 3 % (0-0); Immature Granulocytes Auto 0.55 Thou/mm3 (0.00-0.00); Lymphocytes # (Auto) 2.6 Thou/mm3 (1.0-4.8); Lymphocytes % (Auto) 15 % (10-50); Mean Corpuscular HGB Conc 34.8 g/dl (31.0-37.0); Mean Corpuscular Hemoglobin 31.9 pg (25.0-35.0); Mean Corpuscular Volume 92 fL (80-100); Monocytes # (Auto) 1.3 Thou/mm3 (0.0-0.8); Monocytes % (Auto) 8 % (0-12); Neutrophils # (Auto) 12.4 Thou/mm3 (1.8-7.7); Neutrophils % (Auto) 73 % (37-80); Nucleated Red Blood Cell # 0.04 Thou/mm3 (0.00-0.00); Nucleated Red Blood Cell % 0 /100 WBC (0); Platelet Count 391 Thou/mm3 (140-440); Red Blood Count 2.26 Miln/mm3 (4.50-5.90)
[2024-08-08 06:09] LABS: Hematocrit 20.7 % (41.0-53.0); Hemoglobin 7.2 g/dL (13.5-16.0)
[2024-08-08 06:57] LABS: Alanine Aminotransferase 99 U/L (10-49); Albumin, Serum 2.6 gm/dL (3.5-5.0); Albumin/Globulin Ratio 0.8 (1.2-2.2); Alkaline Phosphatase 112 U/L (46-116); Anion Gap 8 (7-16); Aspartate Amino Transferase 192 U/L (0-34); BUN/Creatinine Ratio 33 Ratio (12-20); Blood Urea Nitrogen 23 mg/dL (9-23); Calcium 7.5 mg/dL (8.3-10.6); Calcium (Corrected) 8.6 mg/dL (8.5-10.1); Carbon Dioxide 20.5 mMol/L (20.0-31.0); Chloride 105 mMol/L (98-107); Creatinine (Component) 0.7 mg/dL (0.6-1.3); Estimated Creatinine Clearance 166.3 mL/min (>60); Globulin 3.3 gm/dL (2.3-3.5); Glucose 102 mg/dL (74-106); Osmolality,Calculated 270 (275-295); Potassium 3.4 mMol/L (3.4-5.1); Sodium 133 mMol/L (136-145); Total Protein 5.9 gm/dL (5.7-8.2); eGFR > 60 See Note
[2024-08-08 07:11] LABS: Bilirubin,Total 18.1 mg/dL (0.3-1.2)
--- NOTE | 2024-08-08 09:29 | ESPR_ITS ---
<Statement entered by Chriss Lyon MD - 08/08/24 14:27> Patient was examined bedside this morning, he is nosebleeding has stopped this morning, continues to bleed we will do Rhino Rocket. Discontinued his cefepime and Flagyl and started him on Rocephin we will give him 1 unit of FFP and [address] Valderrama is planning to do EGD prior to discharge. I discussed with and supervised my co-resident involved in the care of this patient. I agree with the assessment and plan as documented above. Chriss Lyon,PGY-3 Disclaimer: Despite multiple revisions, due to the dictation software being used, the document below may not be free of grammatical errors including phonetic/typographic errors. However, this does not deter from our commitment to providing health care in the patient's best interest in mind. Documentation for date of: 08/08/24 Subjective Subjective Interval history: Patient was seen and examined at bedside this AM. No acute exents overnight. Patient tolerating diet, adequate urine output and mentation is at baseline. Patient says he has intermittent nosebleeds whenever he ambulates. CIWA 0 Hb 7.2, HCT 20.7. PT 24, INR 2.3 Will order 1 unit PRBC and 1 unit FFP If epistaxis continues will consider Rhino rocket Scheduled for EGD tomorrow morning. GI, Dr. Valderrama consulted and closely following the case. Appreciate recommendations General Surgery, Dr Portillo consulted and closely following. Appreciate recommendation Exam Vital Signs Temp Pulse Resp BP Pulse Ox O2 Del Method 97.5 F 97 17 121/73 95 Room Air 08/08/24 04:00 08/08/24 04:00 08/08/24 04:00 08/08/24 04:00 08/08/24 04:00 08/08/24 04:00 Narrative Exam Constitutional Alert, oriented x 3 and comfortable. Young obese male, scleral icterus, generalized jaundice HEENT Vision grossly intact. Trachea midline. Dry, crusted blood seen at left nares Respiratory Chest normal on inspection and clear auscultation bilaterally Cardiovascular S1 and S2 audible, RRR. No murmurs carotid bruit. No gross JVD. Abdominal Soft, obese, mildly distended, striae, positive fluid thrill and shifting dullness and non tender to palpation in all quadrants. BS + negative asterixis Genitourinary No bladder tenderness, no flank pain. Normal to palpation Musculoskeletal Extremities tone within normal limits. Trace LE edema. Neurological CN II - XII grossly intact. Extremity motor and sensation grossly intact. CIWA 0 Skin Warm, dry and intact. No apparent lesions. Psychiatric Patient has good affect, is cooperative Objective Labs 08/08/24 05:00 08/08/24 05:12 Labs: Laboratory Results - last 24 hr 08/06/24 08/07/24 08/07/24 12:22 05:32 19:28 WBC RBC Hgb 9.5 L Hct 27.9 L MCV MCH MCHC RDW Std Deviation Plt Count Neut % (Auto) Lymph % (Auto) [place] % (Auto) Eos % (Auto) Baso % (Auto) Neut # (Auto) Lymph # (Auto) Early # (Auto) Eos # (Auto) Baso # (Auto) Immature Gran # (Auto) Absolute Nucleated RBC Immature Gran % Neutrophils % (Manual) 78 H Monocytes % (Manual) 5 Nucleated RBC % Band Neutrophils 2 Lymphocytes (Manual) 15 L PT 24.0 H INR 2.3 H APTT 27.9 Sodium Potassium Chloride Carbon Dioxide Anion Gap BUN Creatinine Estim Creat Clear Calc eGFR BUN/Creatinine Ratio Glucose Calculated Osmolality Calcium Corrected Calcium Total Bilirubin AST ALT Alkaline Phosphatase Lactate Dehydrogenase 218 Total Protein Albumin Globulin Albumin/Globulin Ratio Blood Type O Positive Antibody Screen NEGATIVE Crossmatch See Detail Blood Bank Wristband ID Yes Blood Bank Comment FFP Ready 08/08/24 08/08/24 05:00 05:12 WBC 17.0 H RBC 2.26 L Hgb 7.2 L D Hct 20.7 L* MCV 92 MCH 31.9 MCHC 34.8 RDW Std Deviation 67.0 H Plt Count 391 D Neut % (Auto) 73 Lymph % (Auto) 15 [place] % (Auto) 8 Eos % (Auto) 1 Baso % (Auto) 0 Neut # (Auto) 12.4 H Lymph # (Auto) 2.6 Early # (Auto) 1.3 H Eos # (Auto) 0.2 Baso # (Auto) 0.0 Immature Gran # (Auto) 0.55 H Absolute Nucleated RBC 0.04 H Immature Gran % 3 H Neutrophils % (Manual) Monocytes % (Manual) Nucleated RBC % 0 Band Neutrophils Lymphocytes (Manual) PT INR APTT Sodium 133 L Potassium 3.4 Chloride 105 Carbon Dioxide 20.5 Anion Gap 8 BUN 23 Creatinine 0.7 Estim Creat Clear Calc 166.3 eGFR > 60 BUN/Creatinine Ratio 33 H Glucose 102 Calculated Osmolality 270 L Calcium 7.5 L Corrected Calcium 8.6 Total Bilirubin 18.1 H* D AST 192 H ALT 99 H Alkaline Phosphatase 112 Lactate Dehydrogenase Total Protein 5.9 Albumin 2.6 L Globulin 3.3 Albumin/Globulin Ratio 0.8 L Blood Type Antibody Screen Crossmatch Blood Bank Wristband ID Blood Bank Comment Quality Measures Quality Measures none Assessment & Plan Assessment Current Active Medications: Generic Name Dose Route Start Last Admin Trade Name Freq PRN Reason Stop Dose Admin Acetaminophen 650 mg 08/06/24 23:06 Acetaminophen 325 Mg Tablet PO 09/05/24 22:41 Q8HR PRN Pain 1-3 and/or Fever >101 Folic Acid 1 mg 08/07/24 09:00 08/07/24 21:03 Folic Acid 1 Mg Tablet PO 08/12/24 08:59 1 mg BID EFE Administration Furosemide 20 mg 08/07/24 09:00 08/07/24 09:46 Furosemide Inj 10 Mg/Ml 4ml Vial IVP 09/06/24 08:59 20 mg QDAY EFE Administration Cefepime HCl 2 gm/ Sodium 50 mls @ 100 mls/hr 08/07/24 06:00 08/08/24 05:34 Chloride IV 08/13/24 22:45 100 mls/hr Q8HR EFE Administration Metronidazole 500 mg in 100 mls @ 200 mls/hr 08/07/24 06:00 08/08/24 05:36 Flagyl 500 Mg Iv IV 08/14/24 05:59 200 mls/hr Q8HR EFE Administration Lactulose 10 gm 08/07/24 09:00 08/07/24 09:47 Lactulose Syrup 20 Gm/30 Ml Udc PO 09/06/24 08:59 10 gm QDAY EFE Administration Protocol Lorazepam 0.5 mg 08/06/24 23:48 Lorazepam 0.5 Mg Tablet PO 08/11/24 23:47 Q4HR PRN CIWA Score 2-6 Lorazepam 1 mg 08/06/24 23:48 Lorazepam 0.5 Mg Tablet PO 08/11/24 23:47 Q4HR PRN CIWA SCORE 7-11 Lorazepam 2 mg 08/06/24 23:48 Lorazepam 0.5 Mg Tablet PO 08/11/24 23:47 Q4HR PRN CIWA SCORE 12-15 Ondansetron HCl 4 mg 08/06/24 22:42 Ondansetron Inj 2 Mg/Ml Inj 2 Ml IV 09/05/24 22:41 Q6H PRN NAUSEA OR VOMITING Protocol Prednisone 40 mg 08/07/24 10:30 08/07/24 11:40 Prednisone 20 Mg Tablet PO 09/06/24 10:29 40 mg QDAY EFE Administration Spironolactone 25 mg 08/07/24 09:00 08/07/24 21:02 Spironolactone 25 Mg Tablet PO 09/06/24 08:59 25 mg BID EFE Administration Thiamine HCl 100 mg 08/07/24 09:00 08/07/24 21:03 Thiamine 100 Mg Tablet PO 08/12/24 08:59 100 mg BID EFE Administration Plan 39-year-old male with past medical history of undiagnosed hypertension, recently diagnosed cirrhosis secondary to alcohol use disorder presenting to the ED on 08/06 with nosebleed and yellow skin will be admitted for treatment of acute calculus cholecystitis with IV antibiotics, general surgery and GI have been consulted and are following the patient. 1. Acute blood loss anemia secondary to epistaxis 2. Coagulopathy Patient presented with epistaxis since last night and endorses swallowing a lot of blood as well. This morning he had some dark stools. On admission patient's Hb 11.6 which down trended to 8.4 PT 22.7, INR 2.1, APTT 30.3 In the ED patient received 1 unit FFP and vitamin K 5 Mg SC x 1 Hb 7.2, HCT 20.7 Currently PT 24, INR 2.3, PTT 27.9. Patient is still experiencing intermittent epistaxis whenever he walks Plan: - 1 unit FFP ordered for transfusion ? 1 unit PRBC ordered for transfusion ? Repeat H&H post transfusion ordered - Patient scheduled for EGD tomorrow morning ? GI, Dr. Valderrama consulted and is closely following the case. Appreciate recommendation 3. Decompensated alcoholic cirrhosis with coagulopathy 4. Hyperbilirubinemia?improving 5. Transaminitis?improving On admission patient presented with epistaxis. He has a 15-year history of alcohol use, previously drank 2 beers a day along with 2?3 shots a day. Last drink on 07/23/2024. On exam patient has scleral icterus, generalized jaundice, abdominal striae and shifting dullness on percussion. On gallbladder ultrasound liver was 19 cm with fatty infiltration. On admission AST 284, ALT 142, ALP 139. Down trended to AST 192, ALT 99, ALP 112. Total bilirubin on admission 23.1 down trended to T.bili 18.1. Urinalysis significant for bilirubin 4+ Ddx: Alcoholic hepatitis , autoimmume, Ramses's Miguelrey's score 78.5. He scored >32 points indicates poor prognosis and patient may benefit from glucocorticoid therapy Child-Bueno class C. Life expectancy 1-3 years. Abdominal?surgery perioperative mortality: 82% Meld?Na : 29 points; 27?8/3 32% 90-day mortality Received 1 day of cefepime 2 g IV Q8 hourly [08/07 - 08/08] GIDr. Valderrama recommended to trend the LFTs over next 2 days. If they continue to deteriorate then patient may benefit from short course of steroid. Plan: ? Low-salt diet ? Monitor CMP and coag panel. - Pending results for autoimmune hepatitis including IgG,BEN, LKM1,ALC1, ceruloplasmin ? Lactulose 10 g p.o. daily, to titrate as necessary to achieve 2?3 bowel movements per day for hepatic encephalopathy prophylaxis. ? Discontinue cefepime 2 g IV Q8 hourly for SBP prophylaxis [patient is Child- Bueno class C] started on [08/07?08/08] ? Started on ceftriaxone 2 g IV daily for SBP prophylaxis [08/08? ? Continue Lasix 20 Mg IV daily for ascites ? Continue spironolactone 25 Mg p.o. twice daily for ascites ? Continue on prednisolone 40 Mg p.o. daily [08/07- ] for 28 days, to taper over 2-4 weeks after. Juve et. al 1978 found reduced 30 day mortality with steroid therapy in alcoholic hepatitis ? GIDr. Valderrama consulted and is closely following the case. Appreciate recommendation 6. Alcohol use disorder He has a 15-year history of alcohol use, previously drank 2 beers a day along with 2?3 shots a day. Last drink on 07/23/2024. CIWA 0 Plan: ? CIWA protocol ? Folic acid 1 Mg p.o. twice daily ? Thiamine 100 Mg p.o. twice dailyr 7. Elevated lipase 8. Leukocytosis?worsening 9. Unlikely acalculous cholecystitis Lipase 72 WBC 13.7 up trended to 17 Likely secondary to hemoconcentration from blood loss MRCP mild thickening of gallbladder wall suggestive of acalculous cholecystitis. Patient also has decompensated alcoholic cirrhosis, the mild thickening of the gallbladder wall may be due to edema. Acalculous cholecystitis is unlikely and the decision to discontinue antibiotics was made. Plan: ? Discontinued metronidazole 500 Mg IV Q8 hourly [08/07?08/08] 10. Hypophosphatemia Phosphorus 2.2 Neutra-Phos 1 packet x 1 Plan: ? Monitor phosphorus on a.m. draw 11. Hypertriglyceridemia Triglycerides 455 Plan: ? Started on atorvastatin 20 Mg p.o. at bedtime Health maintenance: Disposition: Transfusion with 1 unit PRBC and 1 unit FFP. For EGD tomorrow Diet: Low salt diet. N.p.o. after midnight Lines: pIVs GI Prophylaxis: None Thrombo Prophylaxis: SCDs Code status: FULL CODE Plan of care discussed with Attending Dr. Hartley and PGY3 Dr. Sonali Baugh MD PGY 1 Attending Provider Attestation/Addendum I, Flor Hartley, , attest that I was physically present for the kaye portions of the service and evaluated the patient with the resident and I reviewed and discussed the case with the resident and agree with the resident's findings and plans of care as documented above Patient seen and eval this a.m. Patient states that he has stopped having any epistaxis. 1 unit of FFP was ordered due to elevated INR and patient continued to have epistaxis overnight. Will also transfuse 1 unit of PRBCs as patient has had significant drop of hemoglobin as well despite getting transfused yesterday. Patient is planned for endoscopy tomorrow. Will de-escalate antibiotics to Rocephin for SBP prophylaxis. Patient has been tolerating p.o. intake. There is very low suspicion for acute acalculous cholecystitis otherwise. Continue with steroids at this time due to acute alcoholic hepatitis and elevated at Madrey score. LFTs to continue to improve with steroids .
[2024-08-08] MEDS: LACTULOSE SYRUP 20 GM/30 ML UDC 10 GM PO (09:39)
[2024-08-08] MEDS: FUROSEMIDE INJ 10 MG/ML 4ML VIAL 20 MG IVP (09:39)
[2024-08-08] MEDS: predniSONE 20 MG TABLET 40 MG PO (09:40)
[2024-08-08] MEDS: FOLIC ACID 1 MG TABLET PO ×2 (09:40→20:56)
[2024-08-08] MEDS: SPIRONOLACTONE 25 MG TABLET PO ×2 (09:40→20:56)
[2024-08-08] MEDS: THIAMINE 100 MG TABLET PO ×2 (09:44→20:56)
--- NOTE | 2024-08-08 13:26 | ESPR_ITS ---
Documentation for date of: 08/08/24 Subjective Subjective Interval history: Significant drop in hemoglobin hematocrit 7.2 and 20.7 platelet count is 391,000 Patient is getting blood transfusion Exam Vital Signs Temp Pulse Resp BP Pulse Ox O2 Del Method O2 Flow Rate 97.1 F 90 18 122/64 96 Room Air 0 08/08/24 13:16 08/08/24 13:16 08/08/24 13:16 08/08/24 13:16 08/08/24 13:16 08/08/24 12:00 08/08/24 13:16 Constitutional Comments: Alert oriented Routine HEENT Exam Comments: Icteric sclera Routine Respiratory Exam Comments: Normal to auscultation Objective Labs 08/08/24 05:00 08/08/24 05:12 Labs: Laboratory Results - last 24 hr 08/06/24 08/07/24 08/08/24 12:22 19:28 05:00 WBC 17.0 H RBC 2.26 L Hgb 9.5 L 7.2 L D Hct 27.9 L 20.7 L* MCV 92 MCH 31.9 MCHC 34.8 RDW Std Deviation 67.0 H Plt Count 391 D Neut % (Auto) 73 Lymph % (Auto) 15 [place] % (Auto) 8 Eos % (Auto) 1 Baso % (Auto) 0 Neut # (Auto) 12.4 H Lymph # (Auto) 2.6 [place] # (Auto) 1.3 H Eos # (Auto) 0.2 Baso # (Auto) 0.0 Immature Gran # (Auto) 0.55 H Absolute Nucleated RBC 0.04 H Immature Gran % 3 H Nucleated RBC % 0 PT 24.0 H INR 2.3 H APTT 27.9 Sodium Potassium Chloride Carbon Dioxide Anion Gap BUN Creatinine Estim Creat Clear Calc eGFR BUN/Creatinine Ratio Glucose Calculated Osmolality Calcium Corrected Calcium Total Bilirubin AST ALT Alkaline Phosphatase Total Protein Albumin Globulin Albumin/Globulin Ratio Blood Type O Positive Antibody Screen NEGATIVE Crossmatch See Detail Blood Bank Wristband ID Yes Blood Bank Comment FFP Ready 08/08/24 05:12 WBC RBC Hgb Hct MCV MCH MCHC RDW Std Deviation Plt Count Neut % (Auto) Lymph % (Auto) [place] % (Auto) Eos % (Auto) Baso % (Auto) Neut # (Auto) Lymph # (Auto) [place] # (Auto) Eos # (Auto) Baso # (Auto) Immature Gran # (Auto) Absolute Nucleated RBC Immature Gran % Nucleated RBC % PT INR APTT Sodium 133 L Potassium 3.4 Chloride 105 Carbon Dioxide 20.5 Anion Gap 8 BUN 23 Creatinine 0.7 Estim Creat Clear Calc 166.3 eGFR > 60 BUN/Creatinine Ratio 33 H Glucose 102 Calculated Osmolality 270 L Calcium 7.5 L Corrected Calcium 8.6 Total Bilirubin 18.1 H* D AST 192 H ALT 99 H Alkaline Phosphatase 112 Total Protein 5.9 Albumin 2.6 L Globulin 3.3 Albumin/Globulin Ratio 0.8 L Blood Type Antibody Screen Crossmatch Blood Bank Wristband ID Blood Bank Comment Impressions Impression: # Drop in hemoglobin hematocrit in the setting of liver disease acutely decompensated due to alcohol Plan N.p.o. midnight tonight Informed consent obtained for fiberoptic esophagogastroduodenoscopy with possible biopsy possible therapeutic intervention under intravenous moderate sedation scheduled for tomorrow morning Assessment & Plan A&P Narrative # Alcoholic liver disease which is pretty advanced with a MELD score of 65 at the moment Recently patient has complete abstain from alcohol His prognosis is extremely poor and he is not a candidate for a liver transplant Conservative management Follow the LFTs over the next 24 to 48 hours if they continue to improve no need for any steroids if they start deteriorating Suggest a short course of prednisone # Significant epistaxis bleed Would recommend an ENT consultation for possible posterior nasal packing or cauterization Can be difficult for cauterization because of the coagulopathy present due to chronic liver disease # Patient does not have acute cholecystitis most likely edema of the gallbladder wall is due to underlying cirrhotic liver disease and hypoalbuminemia Will need an upper endoscopy prior to discharge to prophylactically to the band ligation of the esophageal varices for better morbidity and mortality in this clinical setting Thank you very much for the opportunity to participate in the care of this patient Time Spent With Patient Time: Total time spent is greater than 50% in coordination of care (as documented) at patient's floor/unit and/or counseling patient:
[2024-08-08] MEDS: cefTRIAXone 2 GM in SODIUM CHLORIDE 0.9% (P) 50 ML IV (18:14)
[2024-08-08 20:02] LABS: Hematocrit 21.5 % (41.0-53.0)
[2024-08-08 20:05] LABS: Hemoglobin 7.5 g/dL (13.5-16.0)
[2024-08-08] MEDS: ATORVASTATIN CALCIUM 20 MG TABLET PO (20:56)
--- NOTE | 2024-08-08 21:46 | PC.NURSE ---
MD Bryant is aware of post h&h after 1 unit PRBCs and 1 unit FFP given today 08/08. Hgb is 7.5 and Hct is 21.5. He said no change in management. He ordered another H&H for 2250.
[2024-08-08 23:50] LABS: Hematocrit 22.4 % (41.0-53.0)
[2024-08-08 23:54] LABS: Hemoglobin 7.8 g/dL (13.5-16.0)
[2024-08-09] VITALS (24 sets, daily range): BP systolic 96–132; BP diastolic 55–85; PULSE 75–100; RESP 17–30; TEMP 36–36.9; O2SAT 93–98; BMI 35.0
--- NOTE | 2024-08-09 00:18 | PC.NURSE ---
MD Bryant notified of pt's hgb 7.8 and hct 22.4
[2024-08-09 05:54] LABS: Basophils # (Auto) 0.1 Thou/mm3 (0.0-0.2); Basophils % (Auto) 0 % (0-2.5); Eosinophils # (Auto) 0.2 Thou/mm3 (0.0-0.5); Eosinophils % (Auto) 1 % (0-10); Hematocrit 21.9 % (41.0-53.0); Immature Granulocytes % (Auto) 6 % (0-0); Immature Granulocytes Auto 1.13 Thou/mm3 (0.00-0.00); Lymphocytes # (Auto) 3.2 Thou/mm3 (1.0-4.8); Lymphocytes % (Auto) 18 % (10-50); Mean Corpuscular HGB Conc 34.7 g/dl (31.0-37.0); Mean Corpuscular Hemoglobin 30.6 pg (25.0-35.0); Mean Corpuscular Volume 88 fL (80-100); Monocytes # (Auto) 1.2 Thou/mm3 (0.0-0.8); Monocytes % (Auto) 7 % (0-12); Neutrophils # (Auto) 12.4 Thou/mm3 (1.8-7.7); Neutrophils % (Auto) 68 % (37-80); Nucleated Red Blood Cell # 0.09 Thou/mm3 (0.00-0.00); Nucleated Red Blood Cell % 1 /100 WBC (0); Platelet Count 469 Thou/mm3 (140-440); RDW Standard Deviation 66.4 fL (35.1-43.9); Red Blood Count 2.48 Miln/mm3 (4.50-5.90); White Blood Count 18.2 Thou/mm3 (3.8-10.6)
[2024-08-09 06:09] LABS: Hemoglobin 7.7 g/dL (13.5-16.0)
[2024-08-09 06:15] LABS: INR 1.9 (0.9-1.3); Partial Thromboplastin Time 25.7 Seconds (22.0-36.0); Prothrombin Time 19.5 Seconds (9.0-12.2)
--- NOTE | 2024-08-09 06:32 | PC.NURSE ---
Md Rudd notified of pt H&H this morning. Hgb is 7.7 and hct 21.9. No new orders given
[2024-08-09 07:05] LABS: Alanine Aminotransferase 106 U/L (10-49); Albumin, Serum 2.9 gm/dL (3.5-5.0); Albumin/Globulin Ratio 0.9 (1.2-2.2); Alkaline Phosphatase 115 U/L (46-116); Anion Gap 9 (7-16); Aspartate Amino Transferase 223 U/L (0-34); BUN/Creatinine Ratio 25 Ratio (12-20); Bilirubin,Total 17.4 mg/dL (0.3-1.2); Blood Urea Nitrogen 15 mg/dL (9-23); Calcium 7.7 mg/dL (8.3-10.6); Calcium (Corrected) 8.6 mg/dL (8.5-10.1); Carbon Dioxide 20.5 mMol/L (20.0-31.0); Chloride 105 mMol/L (98-107); Creatinine (Component) 0.6 mg/dL (0.6-1.3); Estimated Creatinine Clearance 194.4 mL/min (>60); Globulin 3.3 gm/dL (2.3-3.5); Glucose 89 mg/dL (74-106); Magnesium 2.4 mg/dL (1.6-2.6); Osmolality,Calculated 268 (275-295); Phosphorous 3.1 mg/dL (2.4-5.1); Potassium 3.1 mMol/L (3.4-5.1); Sodium 134 mMol/L (136-145); Total Protein 6.2 gm/dL (5.7-8.2); eGFR > 60 See Note
[2024-08-09] MEDS: LACTULOSE SYRUP 20 GM/30 ML UDC 10 GM PO (09:06)
[2024-08-09] MEDS: THIAMINE 100 MG TABLET PO ×2 (09:07→20:29)
[2024-08-09] MEDS: predniSONE 20 MG TABLET 40 MG PO (09:07)
[2024-08-09] MEDS: cefTRIAXone 2 GM in SODIUM CHLORIDE 0.9% (P) 50 ML IV (09:07)
[2024-08-09] MEDS: POTASSIUM CHL 10 mEq IVPB 10 MEQ/100 ML BAG 100 MEQ IV ×4 (09:07→13:07)
[2024-08-09] MEDS: FOLIC ACID 1 MG TABLET PO ×2 (09:07→20:29)
--- NOTE | 2024-08-09 09:08 | ESPR_ITS ---
<Statement entered by Chriss Lyon MD - 08/09/24 14:46> Patient is was examined bedside this morning, he no longer has nosebleed but still his hemoglobin was low. Giving 1 unit of PRBC started him on octreotide drip and IV Protonix. He is undergoing EGD today. Pending Dr. Valderrama's rec.continue current management I discussed with and supervised my co-resident involved in the care of this patient. I agree with the assessment and plan as documented above. Chriss Lyon,PGY-3 Disclaimer: Despite multiple revisions, due to the dictation software being used, the document below may not be free of grammatical errors including phonetic/typographic errors. However, this does not deter from our commitment to providing health care in the patient's best interest in mind. Documentation for date of: 08/09/24 Subjective Subjective Interval history: Patient was seen and examined at bedside this AM. No acute exents overnight. Patient tolerating diet, adequate urine output and mentation is at baseline. Patient endorses resolution of his new sleep since 5 PM yesterday CIWA 0 Hb 7.7, HCT 21.9. PT 19.5, INR 1.9 Ordered 1 unit PRBC Given octreotide 50 mcg IV x 1 and then started on octreotide infusion at 50 mcg/hour Started on Protonix 40 Mg IV twice daily as patient is highly suspicious for esophageal variceal bleeding Scheduled for EGD today GI, Dr. Valderrama consulted and closely following the case. Appreciate recommendations General Surgery, Dr Portillo consulted and closely following. Appreciate recommendation Exam Vital Signs Temp Pulse Resp BP Pulse Ox O2 Del Method O2 Flow Rate 97.0 F 95 30 H 119/62 93 L Room Air 0 08/09/24 04:00 08/09/24 04:00 08/09/24 04:00 08/09/24 04:00 08/09/24 04:00 08/09/24 04:00 08/08/24 18:26 Narrative Exam Constitutional Alert, oriented x 3 and comfortable. Young obese male, scleral icterus, generalized jaundice?improving HEENT Vision grossly intact. Trachea midline. Respiratory Chest normal on inspection and clear auscultation bilaterally Cardiovascular S1 and S2 audible, RRR. No murmurs carotid bruit. No gross JVD. Abdominal Soft, obese, mildly distended, striae, positive fluid thrill and shifting dullness and non tender to palpation in all quadrants. BS + negative asterixis Genitourinary No bladder tenderness, no flank pain. Normal to palpation Musculoskeletal Extremities tone within normal limits. No lower extremity edema Neurological CN II - XII grossly intact. Extremity motor and sensation grossly intact. CIWA 0 Skin Warm, dry and intact. No apparent lesions. Psychiatric Patient has good affect, is cooperative Objective Labs 08/10/24 05:03 08/10/24 05:03 Labs: Laboratory Results - last 24 hr 08/06/24 08/08/24 08/08/24 12:22 19:50 22:58 WBC RBC Hgb 7.5 L 7.8 L Hct 21.5 L* 22.4 L MCV MCH MCHC RDW Std Deviation Plt Count Neut % (Auto) Lymph % (Auto) [place] % (Auto) Eos % (Auto) Baso % (Auto) Neut # (Auto) Lymph # (Auto) [place] # (Auto) Eos # (Auto) Baso # (Auto) Immature Gran # (Auto) Absolute Nucleated RBC Immature Gran % Nucleated RBC % PT INR APTT Sodium Potassium Chloride Carbon Dioxide Anion Gap BUN Creatinine Estim Creat Clear Calc eGFR BUN/Creatinine Ratio Glucose Calculated Osmolality Calcium Corrected Calcium Phosphorus Magnesium Total Bilirubin AST ALT Alkaline Phosphatase Total Protein Albumin Globulin Albumin/Globulin Ratio Blood Type O Positive Antibody Screen NEGATIVE Crossmatch See Detail Blood Bank Wristband ID Yes Blood Bank Comment FFP Ready 08/09/24 05:00 WBC 18.2 H RBC 2.48 L Hgb 7.7 L Hct 21.9 L* MCV 88 MCH 30.6 MCHC 34.7 RDW Std Deviation 66.4 H Plt Count 469 H D Neut % (Auto) 68 Lymph % (Auto) 18 [place] % (Auto) 7 Eos % (Auto) 1 Baso % (Auto) 0 Neut # (Auto) 12.4 H Lymph # (Auto) 3.2 [place] # (Auto) 1.2 H Eos # (Auto) 0.2 Baso # (Auto) 0.1 Immature Gran # (Auto) 1.13 H Absolute Nucleated RBC 0.09 H Immature Gran % 6 H Nucleated RBC % 1 H PT 19.5 H D INR 1.9 H APTT 25.7 Sodium 134 L Potassium 3.1 L Chloride 105 Carbon Dioxide 20.5 Anion Gap 9 BUN 15 Creatinine 0.6 Estim Creat Clear Calc 194.4 eGFR > 60 BUN/Creatinine Ratio 25 H Glucose 89 Calculated Osmolality 268 L Calcium 7.7 L Corrected Calcium 8.6 Phosphorus 3.1 Magnesium 2.4 Total Bilirubin 17.4 H D AST 223 H ALT 106 H Alkaline Phosphatase 115 Total Protein 6.2 Albumin 2.9 L Globulin 3.3 Albumin/Globulin Ratio 0.9 L Blood Type Antibody Screen Crossmatch Blood Bank Wristband ID Blood Bank Comment Quality Measures Quality Measures none Assessment & Plan Assessment Current Active Medications: Generic Name Dose Route Start Last Admin Trade Name Freq PRN Reason Stop Dose Admin Acetaminophen 650 mg 08/06/24 23:06 Acetaminophen 325 Mg Tablet PO 09/05/24 22:41 Q8HR PRN Pain 1-3 and/or Fever >101 Atorvastatin Calcium 20 mg 08/08/24 21:00 08/08/24 20:56 Atorvastatin Calcium 20 Mg Tablet PO 09/07/24 20:59 20 mg HS EFE Administration Folic Acid 1 mg 08/07/24 09:00 08/08/24 20:56 Folic Acid 1 Mg Tablet PO 08/12/24 08:59 1 mg BID EFE Administration Furosemide 20 mg 08/07/24 09:00 08/08/24 09:39 Furosemide Inj 10 Mg/Ml 4ml Vial IVP 09/06/24 08:59 20 mg QDAY EFE Administration Ceftriaxone Sodium 2 gm/ 50 mls @ 100 mls/hr 08/08/24 16:15 08/08/24 18:14 Sodium Chloride IV 08/15/24 16:14 100 mls/hr QDAY EFE Administration Potassium Chloride 10 meq in 100 mls @ 100 mls/hr 08/09/24 07:37 Kcl Ivpb IV 08/09/24 11:36 Q1H EFE Lactulose 10 gm 08/07/24 09:00 08/08/24 09:39 Lactulose Syrup 20 Gm/30 Ml Udc PO 09/06/24 08:59 10 gm QDAY EFE Administration Protocol Lorazepam 0.5 mg 08/06/24 23:48 Lorazepam 0.5 Mg Tablet PO 08/11/24 23:47 Q4HR PRN CIWA Score 2-6 Lorazepam 1 mg 08/06/24 23:48 Lorazepam 0.5 Mg Tablet PO 08/11/24 23:47 Q4HR PRN CIWA SCORE 7-11 Lorazepam 2 mg 08/06/24 23:48 Lorazepam 0.5 Mg Tablet PO 08/11/24 23:47 Q4HR PRN CIWA SCORE 12-15 Ondansetron HCl 4 mg 08/06/24 22:42 Ondansetron Inj 2 Mg/Ml Inj 2 Ml IV 09/05/24 22:41 Q6H PRN NAUSEA OR VOMITING Protocol Prednisone 40 mg 08/07/24 10:30 08/08/24 09:40 Prednisone 20 Mg Tablet PO 09/06/24 10:29 40 mg QDAY EFE Administration Spironolactone 25 mg 08/07/24 09:00 08/08/24 20:56 Spironolactone 25 Mg Tablet PO 09/06/24 08:59 25 mg BID EFE Administration Thiamine HCl 100 mg 08/07/24 09:00 08/08/24 20:56 Thiamine 100 Mg Tablet PO 08/12/24 08:59 100 mg BID EFE Administration Plan 39-year-old male with past medical history of undiagnosed hypertension, recently diagnosed cirrhosis secondary to alcohol use disorder presenting to the ED on 08/06 with nosebleed and yellow skin will be admitted for treatment of acute calculus cholecystitis with IV antibiotics, general surgery and GI have been consulted and are following the patient. 1. Acute blood loss anemia secondary to epistaxis 2. Coagulopathy 3. High suspicion for esophageal variceal bleeding Patient presented with epistaxis since last night and endorses swallowing a lot of blood as well. This morning he had some dark stools. On admission patient's Hb 11.6 which down trended to 8.4 PT 22.7, INR 2.1, APTT 30.3 improved to PT 19.5, INR 1.9, APTT 25.7. In the ED patient received 1 unit FFP and vitamin K 5 Mg SC x 1 [08/08/2024] patient received 1 unit FFP and 1 unit PRBC Currently Hb 7.7, HCT 21.9 Patient states his epistaxis has resolved, however his hemoglobin continues to decrease. Patient is high suspicion for bleeding esophageal varices. Scheduled for EGD today Plan: ? 1 unit PRBC ordered for transfusion ? Repeat H&H post transfusion ordered ? Loading dose of octreotide 50 mcg IV x 1. Then started on octreotide infusion at 50 mcg/hour ? Started on Protonix 40 Mg IV twice daily - Patient scheduled for EGD today. ? Dr. Lavelle WILSON consulted and is closely following the case. Appreciate recommendation 4. Decompensated alcoholic cirrhosis with coagulopathy 5. Hyperbilirubinemia?improving 6. Transaminitis?improving On admission patient presented with epistaxis. He has a 15-year history of alcohol use, previously drank 2 beers a day along with 2?3 shots a day. Last drink on 07/23/2024. On exam patient has scleral icterus, generalized jaundice, abdominal striae and shifting dullness on percussion. Ddx: Alcoholic hepatitis , autoimmume, Ramses's On admission AST 284, ALT 142, ALP 139. Down trended to AST 223, ALT 106, ALP 115 Total bilirubin on admission 23.1 down trended to T.bili 17.4 Urinalysis significant for bilirubin 4+ On gallbladder ultrasound liver was 19 cm with fatty infiltration. Madrey's score 78.5. He scored >32 points indicates poor prognosis and patient may benefit from glucocorticoid therapy Child-Bueno class C. Life expectancy 1-3 years. Abdominal?surgery perioperative mortality: 82% Meld?Na : 29 points; 27?8/3 32% 90-day mortality Received 1 day of cefepime 2 g IV Q8 hourly [08/07 - 08/08] Dr. Lavelle WILSON recommended to trend the LFTs over next 2 days. If they continue to deteriorate then patient may benefit from short course of steroid. Plan: ? Low-salt diet ? Monitor CMP and coag panel. - Pending results for autoimmune hepatitis including IgG,BEN, LKM1,ALC1, ceruloplasmin ? Lactulose 10 g p.o. daily, to titrate as necessary to achieve 2?3 bowel movements per day for hepatic encephalopathy prophylaxis. ? Continue ceftriaxone 1 g IV daily for SBP prophylaxis [08/08? ? Continue Lasix 20 Mg IV daily for ascites ? Continue spironolactone 25 Mg p.o. twice daily for ascites ? Continue on prednisolone 40 Mg p.o. daily [08/07- ] for 28 days, to taper over 2-4 weeks after. Juve et. al 1978 found reduced 30 day mortality with steroid therapy in alcoholic hepatitis ? Dr. Lavelle WILSON consulted and is closely following the case. Appreciate recommendation 7. Alcohol use disorder He has a 15-year history of alcohol use, previously drank 2 beers a day along with 2?3 shots a day. Last drink on 07/23/2024. CIWA 0 Plan: ? CIWA protocol ? Continue folic acid 1 Mg p.o. twice daily ? Continue thiamine 100 Mg p.o. twice daily 8. Elevated lipase 9. Leukocytosis?worsening 10. Unlikely acalculous cholecystitis Lipase 72 WBC 13.7 up trended to 18.2 Likely secondary to hemoconcentration from blood loss MRCP mild thickening of gallbladder wall suggestive of acalculous cholecystitis. Patient also has decompensated alcoholic cirrhosis, the mild thickening of the gallbladder wall may be due to edema. Acalculous cholecystitis is unlikely and the decision to discontinue antibiotics was made. Discontinued metronidazole 500 Mg IV Q8 hourly [08/07?08/08] 10. Hypophosphatemia - resolved Phosphorus 2.2 --- > 3.1 Neutra-Phos 1 packet x 1 given 11. Hypertriglyceridemia Triglycerides 455 Plan: ? Held atorvastatin 20 Mg p.o. at bedtime in light of transaminitis Health maintenance: Disposition: Transfusion with 1 unit PRBC, IV octreotide and Protonix. For EGD today Diet: N.p.o. Lines: pIVs GI Prophylaxis: Protonix 40 Mg IV twice daily Thrombo Prophylaxis: SCDs Code status: FULL CODE Plan of care discussed with Attending Dr. Hartley and PGY3 Dr. Sonali Baugh MD PGY 1 Attending Provider Attestation/Addendum Jessica, Flor Hartley, DO, attest that I was physically present for the kaye portions of the service and evaluated the patient with the resident and I reviewed and discussed the case with the resident and agree with the resident's findings and plans of care as documented above Patient seen and eval this a.m. He states that he is feeling well and reports complete cessation of epistaxis since yesterday. Patient received 1 unit of FFP and a unit of blood. Hemoglobin remains at 7 despite transfusion. Concern for GI bleed. Will transfuse another unit of PRBCs. Patient will be undergoing endoscopy today. Will start on octreotide in the event patient is found to have esophageal varices. Will follow-up with endoscopy results otherwise. Will continue to trend H&H.
[2024-08-09] MEDS: SPIRONOLACTONE 25 MG TABLET PO ×2 (09:21→20:28)
[2024-08-09] MEDS: FUROSEMIDE INJ 10 MG/ML 4ML VIAL 20 MG IVP (09:21)
[2024-08-09] MEDS: PANTOPRAZOLE INJ 40 MG VIAL IV ×2 (10:36→20:28)
[2024-08-09] MEDS: OCTREOTIDE ACET INJ 1,000 MCG in SODIUM CHLORIDE 0.9% 100 ML 5.1 MCG IV (10:46)
[2024-08-09] MEDS: OCTREOTIDE ACET INJ 50 mCg/ML VIAL IV (10:46)
--- NOTE | 2024-08-09 14:10 | PC.SS ---
Rounding note; pending esophagogastroduodenoscopy.
--- NOTE | 2024-08-09 16:38 | SUR.PHASEI ---
1630 To PACU able to lift head off of pillow following simple commands continue to monitor pt vital signs and status.
--- NOTE | 2024-08-09 17:14 | SUR.PHASEI ---
1710 Transfer to room 278 in stable condition awake and alert, no complaints no s/s of distress note.
[2024-08-09] MEDS: NA SU/NAHCO3/KC/PEG (Golytely) 4,000 ML BTL 4000 ML PO (17:23)
[2024-08-09 19:35] LABS: Hemoglobin 10.1 g/dL (13.5-16.0)
[2024-08-10] VITALS (19 sets, daily range): BP systolic 98–136; BP diastolic 55–85; PULSE 65–85; RESP 13–22; TEMP 35.9–36.6; O2SAT 93–99; BMI 34.9
[2024-08-10 07:11] LABS: Alanine Aminotransferase 116 U/L (10-49); Albumin/Globulin Ratio 0.9 (1.2-2.2); Alkaline Phosphatase 135 U/L (46-116); Anion Gap 10 (7-16); Aspartate Amino Transferase 251 U/L (0-34); BUN/Creatinine Ratio 20 Ratio (12-20); Bilirubin,Total 17.2 mg/dL (0.3-1.2); Blood Urea Nitrogen 12 mg/dL (9-23); Calcium 7.7 mg/dL (8.3-10.6); Calcium (Corrected) 8.5 mg/dL (8.5-10.1); Carbon Dioxide 19.6 mMol/L (20.0-31.0); Chloride 104 mMol/L (98-107); Creatinine (Component) 0.6 mg/dL (0.6-1.3); Estimated Creatinine Clearance 194.1 mL/min (>60); Globulin 3.5 gm/dL (2.3-3.5); Glucose 91 mg/dL (74-106); Magnesium 2.4 mg/dL (1.6-2.6); Osmolality,Calculated 267 (275-295); Phosphorous 3.4 mg/dL (2.4-5.1); Potassium 3.6 mMol/L (3.4-5.1); Sodium 134 mMol/L (136-145); Total Protein 6.5 gm/dL (5.7-8.2); eGFR > 60 See Note
[2024-08-10 07:31] LABS: Basophils # (Auto) 0.1 Thou/mm3 (0.0-0.2); Basophils % (Auto) 0 % (0-2.5); Eosinophils # (Auto) 0.2 Thou/mm3 (0.0-0.5); Eosinophils % (Auto) 1 % (0-10); Hematocrit 30.7 % (41.0-53.0); Hemoglobin 10.3 g/dL (13.5-16.0); Immature Granulocytes % (Auto) 6 % (0-0); Lymphocytes # (Auto) 2.4 Thou/mm3 (1.0-4.8); Lymphocytes % (Auto) 14 % (10-50); Mean Corpuscular HGB Conc 33.6 g/dl (31.0-37.0); Mean Corpuscular Hemoglobin 30.6 pg (25.0-35.0); Mean Corpuscular Volume 91 fL (80-100); Monocytes % (Auto) 6 % (0-12); Neutrophils # (Auto) 12.6 Thou/mm3 (1.8-7.7); Neutrophils % (Auto) 73 % (37-80); Nucleated Red Blood Cell # 0.05 Thou/mm3 (0.00-0.00); Nucleated Red Blood Cell % 0 /100 WBC (0); Platelet Count 442 Thou/mm3 (140-440); RDW Standard Deviation 66.9 fL (35.1-43.9); Red Blood Count 3.37 Miln/mm3 (4.50-5.90); White Blood Count 17.3 Thou/mm3 (3.8-10.6)
--- NOTE | 2024-08-10 08:01 | ESPR_ITS ---
<Statement entered by Lito Marshall MD - 08/10/24 15:35> Patient was seen and examined at the bedside. Patient reported that he feels better and has been drinking GoLytely prep for colonoscopy today. EGD showed grade 1 esophageal varices. Patient has a history of underlying decompensated alcoholic liver cirrhosis. Continue Protonix and octreotide. Will continue octreotide for 1 more day. Labs revealed chemistry panel was unremarkable hemoglobin stable at 10.3. T. bili at 17. Kidney functions remained stable. Will wait on colonoscopy and follow-up with results. All labs and orders were reviewed. I saw and examined the patient, and I agree with current management stated by Dr Lupis MD,PGY1. Plan of care was discussed with the attending physician and resident physician. Disclaimer: Despite multiple revisions, due to the dictation software being used, the document bellow may not be free of grammatical errors including phonetic/typographic errors. However, this does not deter from our commitment to providing health care in the patient's best interest in mind. Dr. Rolando MD, PGY 2 Documentation for date of: 08/10/24 Subjective Subjective Interval history: Patient was seen and examined at bedside this AM. No acute exents overnight. Patient tolerating clear liquid diet, adequate urine output and mentation is at baseline. Patient has no complaints today. He is eager to get his colonoscopy and possibly discharge soon CIWA 0 Hb 10.3, HCT 30.7. PT 19.5, INR 1.9 On this admission transfused 4 units PRBC and 2 units FFP EGD completed on 08/09/[address] Valderrama findings include: Grade 1 esophageal varices. Gastritis, characterized by erythema. Normal second portion of duodenum. No specimens collected. GI, Dr. Valderrama consulted and closely following the case. Appreciate recommendations Exam Vital Signs Temp Pulse Resp BP Pulse Ox O2 Del Method O2 Flow Rate 97.0 F 73 18 115/70 98 Room Air 0 08/10/24 04:00 08/10/24 04:00 08/10/24 04:00 08/10/24 04:00 08/10/24 04:00 08/10/24 04:00 08/09/24 16:35 Narrative Exam Constitutional Alert, oriented x 3 and comfortable. Young obese male, scleral icterus, generalized jaundice?improving HEENT Vision grossly intact. Trachea midline. Respiratory Chest normal on inspection and clear auscultation bilaterally Cardiovascular S1 and S2 audible, RRR. No murmurs carotid bruit. No gross JVD. Abdominal Soft, obese, mildly distended, striae, positive fluid thrill and shifting dullness and non tender to palpation in all quadrants. BS + negative asterixis Genitourinary No bladder tenderness, no flank pain. Normal to palpation Musculoskeletal Extremities tone within normal limits. Trace lower extremity edema Neurological CN II - XII grossly intact. Extremity motor and sensation grossly intact. CIWA 0 Skin Warm, dry and intact. No apparent lesions. Psychiatric Patient has good affect, is cooperative Objective Labs 08/10/24 05:03 08/10/24 05:03 Labs: Laboratory Results - last 24 hr 08/09/24 08/09/24 08/10/24 09:15 18:35 05:03 WBC 17.3 H RBC 3.37 L Hgb 10.1 L D 10.3 L Hct 29.0 L 30.7 L MCV 91 MCH 30.6 MCHC 33.6 RDW Std Deviation 66.9 H Plt Count 442 H Neut % (Auto) 73 Lymph % (Auto) 14 [place] % (Auto) 6 Eos % (Auto) 1 Baso % (Auto) 0 Neut # (Auto) 12.6 H Lymph # (Auto) 2.4 [place] # (Auto) 1.0 H Eos # (Auto) 0.2 Baso # (Auto) 0.1 Immature Gran # (Auto) 1.10 H Absolute Nucleated RBC 0.05 H Immature Gran % 6 H Nucleated RBC % 0 Sodium 134 L Potassium 3.6 D Chloride 104 Carbon Dioxide 19.6 L Anion Gap 10 BUN 12 Creatinine 0.6 Estim Creat Clear Calc 194.1 eGFR > 60 BUN/Creatinine Ratio 20 Glucose 91 Calculated Osmolality 267 L Calcium 7.7 L Corrected Calcium 8.5 Phosphorus 3.4 Magnesium 2.4 Total Bilirubin 17.2 H AST 251 H ALT 116 H Alkaline Phosphatase 135 H D Total Protein 6.5 Albumin 3.0 L Globulin 3.5 Albumin/Globulin Ratio 0.9 L Blood Type O Positive Antibody Screen NEGATIVE Crossmatch See Detail Blood Bank Wristband ID Yes Quality Measures Quality Measures none Assessment & Plan Assessment Current Active Medications: Generic Name Dose Route Start Last Admin Trade Name Freq PRN Reason Stop Dose Admin Acetaminophen 650 mg 08/06/24 23:06 Acetaminophen 325 Mg Tablet PO 09/05/24 22:41 Q8HR PRN Pain 1-3 and/or Fever >101 Atorvastatin Calcium 20 mg 08/08/24 21:00 08/08/24 20:56 Atorvastatin Calcium 20 Mg Tablet PO 09/07/24 20:59 20 mg HS EFE Administration Folic Acid 1 mg 08/07/24 09:00 08/09/24 20:29 Folic Acid 1 Mg Tablet PO 08/12/24 08:59 1 mg BID EFE Administration Furosemide 20 mg 08/07/24 09:00 08/09/24 09:21 Furosemide Inj 10 Mg/Ml 4ml Vial IVP 09/06/24 08:59 20 mg QDAY EFE Administration Octreotide Acetate 1,000 mcg/ 102 mls @ 5.1 mls/hr 08/09/24 10:01 08/09/24 10:46 Sodium Chloride IV 08/14/24 10:01 50 mcg/hr .Q20H EFE 5.1 mls/hr Administration Protocol 50 MCG/HR Ceftriaxone Sodium/Dextrose 50 mls @ 100 mls/hr 08/10/24 09:00 Rocephin/D5w 1gm Iv Premix IV 08/17/24 08:59 QDAY EFE Lactulose 10 gm 08/07/24 09:00 08/09/24 09:06 Lactulose Syrup 20 Gm/30 Ml Udc PO 09/06/24 08:59 10 gm QDAY EFE Administration Protocol Ondansetron HCl 4 mg 08/06/24 22:42 Ondansetron Inj 2 Mg/Ml Inj 2 Ml IV 09/05/24 22:41 Q6H PRN NAUSEA OR VOMITING Protocol Pantoprazole Sodium 40 mg 08/09/24 10:00 08/09/24 20:28 Pantoprazole Inj 40 Mg Vial IV 09/08/24 09:59 40 mg BID EFE Administration Prednisone 40 mg 08/07/24 10:30 08/09/24 09:07 Prednisone 20 Mg Tablet PO 09/06/24 10:29 40 mg QDAY EFE Administration Spironolactone 25 mg 08/07/24 09:00 08/09/24 20:28 Spironolactone 25 Mg Tablet PO 09/06/24 08:59 25 mg BID EFE Administration Thiamine HCl 100 mg 08/07/24 09:00 08/09/24 20:29 Thiamine 100 Mg Tablet PO 08/12/24 08:59 100 mg BID EFE Administration Plan 39-year-old male with past medical history of undiagnosed hypertension, recently diagnosed cirrhosis secondary to alcohol use disorder presenting to the ED on 08/06 with nosebleed and yellow skin will be admitted for treatment of acute calculus cholecystitis with IV antibiotics, general surgery and GI have been consulted and are following the patient. 1. Acute blood loss anemia secondary to epistaxis 2. Coagulopathy 3. Grade 1 nonbleeding esophageal varices Patient presented with epistaxis since last night and endorses swallowing a lot of blood as well. This morning he had some dark stools. On admission patient's Hb 11.6 which down trended to 8.4 In the ED patient received 1 unit FFP and vitamin K 5 Mg SC x 1 Currently 10.3, HCT 30.7. PT 19.5, INR 1.9 On this admission transfused 4 units PRBC and 2 units FFP in total EGD completed on 08/09/[address] Valderrama findings include: Grade 1 esophageal varices. Gastritis, characterized by erythema. Normal second portion of duodenum. No specimens collected. Currently patient has no further episodes of epistaxis, melena, hematemesis or any signs of GI bleed. Patient currently n.p.o. for colonoscopy today. Plan: ?N.p.o. ? Continue Protonix 40 Mg IV twice daily ? Continue octreotide infusion until colonoscopy rules out anal varices ? For colonoscopy today once bowel prep completed. ? GI, Dr. Valderrama consulted and is closely following the case. Appreciate recommendation 4. Decompensated alcoholic cirrhosis with coagulopathy 5. Hyperbilirubinemia?improving 6. Transaminitis On admission patient presented with epistaxis. He has a 15-year history of alcohol use, previously drank 2 beers a day along with 2?3 shots a day. Last drink on 07/23/2024. On exam patient has scleral icterus, generalized jaundice, abdominal striae and shifting dullness on percussion. Ddx: Alcoholic hepatitis , autoimmume, Ramses's On admission AST 284, ALT 142, ALP 139. Currently AST 251, ALT 116 and ALP 135 Total bilirubin on admission 23.1 down trended to T.bili 17.2 Urinalysis significant for bilirubin 4+ On gallbladder ultrasound liver was 19 cm with fatty infiltration. Madrey's score 78.5. He scored >32 points indicates poor prognosis and patient may benefit from glucocorticoid therapy Child-Bueno class C. Life expectancy 1-3 years. Abdominal?surgery perioperative mortality: 82% Meld?Na : 29 points; 27?8/3 32% 90-day mortality Received 1 day of cefepime 2 g IV Q8 hourly [08/07 - 08/08] GI, Dr. Valderrama recommended to trend the LFTs over next 2 days. If they continue to deteriorate then patient may benefit from short course of steroid. Plan: ? Low-salt diet ? Monitor CMP and coag panel. - Pending results for autoimmune hepatitis including IgG,BEN, LKM1,ALC1, ceruloplasmin ? Lactulose 10 g p.o. daily, to titrate as necessary to achieve 2?3 bowel movements per day for hepatic encephalopathy prophylaxis. ? Continue ceftriaxone 1 g IV daily for SBP prophylaxis [08/08? ? Continue Lasix 20 Mg IV daily for ascites ? Continue spironolactone 25 Mg p.o. twice daily for ascites ? Continue on prednisone 40 Mg p.o. daily [08/07- ] for 28 days, to taper over 2-4 weeks after. Juve et. al 1978 found reduced 30 day mortality with steroid therapy in alcoholic hepatitis ? GI, Dr. Valderrama consulted and is closely following the case. Appreciate recommendation 7. Alcohol use disorder He has a 15-year history of alcohol use, previously drank 2 beers a day along with 2?3 shots a day. Last drink on 07/23/2024. CIWA 0 Plan: ? CIWA protocol ? Continue folic acid 1 Mg p.o. twice daily ? Continue thiamine 100 Mg p.o. twice daily 8. Elevated lipase 9. Leukocytosis?worsening 10. Unlikely acalculous cholecystitis Lipase 72 WBC 13.7 up trended to 18.2 ---> 17.3 Likely secondary to hemoconcentration from blood loss MRCP mild thickening of gallbladder wall suggestive of acalculous cholecystitis. Patient also has decompensated alcoholic cirrhosis, the mild thickening of the gallbladder wall may be due to edema. Acalculous cholecystitis is unlikely and the decision to discontinue antibiotics was made. Discontinued metronidazole 500 Mg IV Q8 hourly [08/07?08/08] 10. Hypophosphatemia - resolved Phosphorus 2.2 --- > 3.1 Neutra-Phos 1 packet x 1 given 11. Hypertriglyceridemia Triglycerides 455 Plan: ? Held atorvastatin 20 Mg p.o. at bedtime in light of transaminitis Health maintenance: Disposition: For Colonoscopy today Diet: N.p.o. Lines: pIVs GI Prophylaxis: Protonix 40 Mg IV twice daily Thrombo Prophylaxis: SCDs Code status: FULL CODE Plan of care discussed with Attending Dr. Hartley and PGY2 Dr. Rolando Baugh MD PGY 1 Attending Provider Attestation/Addendum Jessica, Flor Hartley DO, attest that I was physically present for the kaye portions of the service and evaluated the patient with the resident and I reviewed and discussed the case with the resident and agree with the resident's findings and plans of care as documented above Patient seen and eval this a.m. Doing well. No further episodes of epistaxis. Scheduled for colonoscopy this a.m. will follow-up with colonoscopy results. Continue octreotide drip at this time. Anticipate discharge within next 24-48h
[2024-08-10] MEDS: FUROSEMIDE INJ 10 MG/ML 4ML VIAL 20 MG IVP (08:17)
[2024-08-10] MEDS: OCTREOTIDE ACET INJ 1,000 MCG in SODIUM CHLORIDE 0.9% 100 ML 5.1 MCG IV (08:17)
[2024-08-10] MEDS: cefTRIAXone/D5w 1gm IV premix 50 ML IV (08:17)
[2024-08-10] MEDS: PANTOPRAZOLE INJ 40 MG VIAL IV ×2 (08:18→20:09)
[2024-08-10] MEDS: predniSONE 20 MG TABLET 40 MG PO (08:18)
[2024-08-10] MEDS: SPIRONOLACTONE 25 MG TABLET PO ×2 (08:19→20:08)
[2024-08-10] MEDS: FOLIC ACID 1 MG TABLET PO ×2 (08:19→20:09)
[2024-08-10] MEDS: THIAMINE 100 MG TABLET PO ×2 (08:19→20:08)
[2024-08-10] MEDS: LACTULOSE SYRUP 20 GM/30 ML UDC 10 GM PO (10:14)
--- NOTE | 2024-08-10 10:26 | PC.SS ---
SS follow up notes; Patient is pending a Colonoscopy.
[2024-08-10 16:36] LABS: Band Neutrophils (Manual) 8 % (0-6); Lymphocytes (Manual) 14 % (20-44); Metamyelocytes (Manual) 3 % (0-0); Monocytes (Manual) 4 % (2-9); Myelocytes (Manual) 1 % (0-0); Neutrophils (Manual) 70 % (50-70)
--- NOTE | 2024-08-10 17:06 | PC.NURSE ---
pt in colonoscopy at this time
--- NOTE | 2024-08-10 17:25 | SUR.PHASEI ---
pt received to [facility]. alert and oriented. denies pain and nausea. vss. breathing even and unlabored. abdomen distended. report from nurse gagandeep.
--- NOTE | 2024-08-10 17:50 | SUR.PHASEI ---
report called to nurse diana. vss. breathing even and unlabored. denies pain and nausea. transferred self from [facility] to bed.
[2024-08-11] VITALS (10 sets, daily range): BP systolic 124–129; BP diastolic 73–81; PULSE 62–84; RESP 14–22; TEMP 35.9–36.1; O2SAT 96–99; BMI 34.2
[2024-08-11 06:45] LABS: Magnesium 2.2 mg/dL (1.6-2.6); Phosphorous 2.3 mg/dL (2.4-5.1)
[2024-08-11] MEDS: cefTRIAXone/D5w 1gm IV premix 50 ML IV (08:46)
[2024-08-11] MEDS: NAPH,KPH MBDB 1 PACKET (1.5 GM) PO (08:46)
[2024-08-11] MEDS: PANTOPRAZOLE INJ 40 MG VIAL IV (08:47)
[2024-08-11] MEDS: FUROSEMIDE INJ 10 MG/ML 4ML VIAL 20 MG IVP (08:47)
[2024-08-11] MEDS: predniSONE 20 MG TABLET 40 MG PO (08:48)
[2024-08-11] MEDS: FOLIC ACID 1 MG TABLET PO (08:48)
[2024-08-11] MEDS: LACTULOSE SYRUP 20 GM/30 ML UDC 10 GM PO (08:48)
[2024-08-11] MEDS: SPIRONOLACTONE 25 MG TABLET PO (08:48)
[2024-08-11] MEDS: THIAMINE 100 MG TABLET PO (08:48)
--- NOTE | 2024-08-11 09:33 | ESDS_ITS ---
<Statement entered by Flor Hartley DO - 08/12/24 08:21> I, Flor Hartley DO, attest that I was physically present for the kaye portions of the service and evaluated the patient with the resident and I reviewed and discussed the case with the resident and agree with the resident's findings and plans of care as documented above <Statement entered by Kenyatta Seay MD - 08/11/24 16:20> I discussed with and supervised my co-resident involved in the care of this patient. I agree with the assessment and plan as documented above. Kenyatta Seay MD PGY-3 Planned Discharge Date 08/11/24 DS: Providers Provider Date of admission: 08/06/24 22:42 Primary care physician: Arturo Jean MD Admitting Provider: Guerita Melendez MD Attending Provider on Admission: Flor Hartley DO Consults: 08/06/24 22:16 Consult to Gastroenterology Stat Comment: liver failure Consulting Provider: Harmony Valderrama Attending Provider on DC: Flor Hartley DO Discharging Provider: Toan Baugh MD DS: Diagnosis Problem List Completed Was Problem List Reviewed/Reconciled?: Yes Hospital Course Hospital Course Hospital course: 39-year-old male with past medical history of undiagnosed hypertension, recently diagnosed cirrhosis secondary to alcohol use disorder presenting to the ED on 08/06 with nosebleed and yellow skin will be admitted for treatment of acute calculus cholecystitis with IV antibiotics, general surgery and GI have been consulted and are following the patient. In the ED, patient presented normotensive, normal sinus rhythm, respiratory rate 16, afebrile satting 98 on room air. Pertinent lab findings included WBC of 13.4, hemoglobin 11.6, platelet 333, PT 26.9, INR 2.6, sodium 129, potassium 2.6 , BUN 11, creatinine 0.7, corrected calcium 8.4 (albumin 3.2), magnesium 2.4, total bilirubin 23.1, AST 284, ALT 142, alk phos 139, ammonia 31. Urinalysis and urine drug screen negative. Gallbladder ultrasound shows acute acalculous cholecystitis and significant hepatomegaly, CT abdomen pelvis shows cirrhosis, splenomegaly and acute calculus cholecystitis and MRCP shows no stone in CBD. With regards to his acute blood loss anemia secondary to epistaxis. Patient was treated with a total of 4 units PRBC. His hemoglobin improved to 10.3 from 8.4 on admission. For his coagulopathy, initially PT 26.9, INR 2.6. Patient was transfused with 2 unit FFP. After which PT improved to 19.5 and INR 1.9. Patient was prophylactically started on octreotide infusion for 1 day prior to EGD as he was high risk for bleeding esophageal varices. He was also started on Protonix 40 Mg IV twice daily for suspected upper GI bleed. EGD completed on 08/09/[address] Valderrama findings include: Grade 1 esophageal varices. Gastritis, characterized by erythema. Normal second portion of duodenum. No specimens collected. Colonoscopy completed on 08/10/2024 findings include: Hemorrhoids on perianal exam. Large 1 cm pedunculated polyp in proximal ascending colon. Resection with hot snare. Small localized angio dysplastic lesions without bleeding in ascending colon. Recommend repeat colonoscopy in 5 years for surveillance Octreotide infusion was subsequently discontinued. With regards to his decompensated alcoholic cirrhosis with coagulopathy. Liver enzymes were trended over the course of admission. Initially AST 284, ALT 142, ALP 139. They downtrended and then up trended over the course of hospitalization. T bilirubin initially elevated at 23.1 subsequently down trended to 17.2. On gallbladder ultrasound liver was 19 cm with fatty infiltration. Madrey's score 78.5. He scored >32 points indicates poor prognosis and patient may benefit from glucocorticoid therapy Child-Bueno class C. Life expectancy 1-3 years. Abdominal?surgery perioperative mortality: 82% Meld?Na : 29 points; 27?8/3 32% 90-day mortality Patient was treated with lactulose for hepatic encephalopathy prophylaxis and ceftriaxone 2 g IV daily for SBP prophylaxis. He was also started on prednisone 40 Mg p.o. daily as his Madrey score was greater than 32 points. This will be tapered slowly on discharge. Instructions below. For his alcohol use disorder patient was placed on CIWA protocol and treated with folic acid 1 Mg p.o. twice daily for 5 days along with thiamine 100 Mg p.o. twice daily for 5 days. His CIWA score was consistently 0 and he did not receive any Ativan and patient. Of note patient states he quit drinking 07/23/2024. He was also given information by social service technician for Alcoholics Anonymous meetings. Publisher Assistant, Dr. Valderrama was consulted and closely follow the case throughout patient's hospitalization. He assessed patient as poor prognosis and not a candidate for liver transplantation. Patient's labs now stable. Patient is now clinically stable and fit for discharge to home with self-care. Discharge diagnoses: 1. Acute blood loss anemia secondary to epistaxis?resolved 2. Coagulopathy?resolving 3. Grade 1 nonbleeding esophageal varices 4. Decompensated alcoholic cirrhosis with coagulopathy 5. Hyperbilirubinemia?improving 6. Transaminitis 7. Alcohol use disorder 8. Elevated lipase 9. Leukocytosis 10. Unlikely acalculous cholecystitis 11. Hypophosphatemia?resolved 12. Hypertriglyceridemia Discharge plan: ? Take lasix 20mg and spironolactone 50mg every day for ascites (fluid in your abdomen) ? Take your blood pressure every day. If the systolic (top number) is <100 do not take your dose for the day. ? Check your weight every day. If it increases by 5-10 pounds over 1-2 days, take an extra water pill that day. ? Take lactulose 1 dose every day with a goal 2-3 bowel movements daily. You can increase your dose to twice daily if you will have less bowel movements. ? Take pantoprazole 40mg every day for your esophageal varices. - We have started you on a steroid prednisone for your Liver damage. Take 4 tablets twice a day for the next 7 days, then 3 tablets twice a day for the next 7 days,, then 2 tablets twice a day for the next 7 days, then 1 tablets twice a day for the next 7 days, then 1 tablet once a day for the next 7 days, Then Stop. - Take protonix 40mg every day to protect the lining of your stomach while you are taking the steroids. ? Follow up with your primary care physician within 1 week. If you do not have a primary care physician or cannot see your primary care physician, please visit the [facility]. You would benefit from outpatient referral to hands and dial inspector and liver transplant evaluation by your primary care physician. - Please call Dr. Valderrama, Publisher Assistant within 1-2 weeks of discahrge to make an appointment. ? Stop drinking alcohol. ? Eat a low sodium diet. ? If you experience any worsening or persistent symptoms call your PCP, or dial 911 or present to the emergency department. Plan of care discussed with Attending Dr. Hartley and PGY3 Dr. Geena Baugh MD PGY 1 Status at Discharge Functional status at discharge: independent ambulation Time Spent with Patient Time attestation: Total time spent providing and/or coordinating discharge services: Time spent: Greater than 30 minutes (36) Exam Vital Signs Temp Pulse Resp BP Pulse Ox O2 Del Method O2 Flow Rate 96.9 F 71 20 127/78 96 Room Air 3 08/11/24 08:00 08/11/24 08:48 08/11/24 08:00 08/11/24 08:48 08/11/24 08:00 08/11/24 08:00 08/10/24 17:50 Narrative Exam Constitutional Alert, oriented x 3 and comfortable. Young obese male, scleral icterus, ge neralized jaundice?improving HEENT Vision grossly intact. Trachea midline. Respiratory Chest normal on inspection and clear auscultation bilaterally Cardiovascular S1 and S2 audible, RRR. No murmurs carotid bruit. No gross JVD. Abdominal Soft, obese, mildly distended, striae, positive fluid thrill and shifting dullness and non tender to palpation in all quadrants. BS + negative asterixis Genitourinary No bladder tenderness, no flank pain. Normal to palpation Musculoskeletal Extremities tone within normal limits. Trace lower extremity edema Neurological CN II - XII grossly intact. Extremity motor and sensation grossly intact. CIWA 0 Skin Warm, dry and intact. No apparent lesions. Psychiatric Patient has good affect, is cooperative Discharge Plan Plan Patient Disposition: HOME (Self Care) Care Plan Goals: ? Take lasix 20mg and spironolactone 50mg every day for ascites (fluid in your abdomen) ? Take your blood pressure every day. If the systolic (top number) is <100 do not take your dose for the day. ? Check your weight every day. If it increases by 5-10 pounds over 1-2 days, take an extra water pill that day. ? Take lactulose 1 dose every day with a goal 2-3 bowel movements daily. You can increase your dose to twice daily if you will have less bowel movements. ? Take pantoprazole 40mg every day for your esophageal varices. - We have started you on a steroid prednisone for your Liver damage. Take 4 tablets twice a day for the next 7 days, then 3 tablets twice a day for the next 7 days,, then 2 tablets twice a day for the next 7 days, then 1 tablets twice a day for the next 7 days, then 1 tablet once a day for the next 7 days, Then Stop. - Take protonix 40mg every day to protect the lining of your stomach while you are taking the steroids. ? Follow up with your primary care physician within 1 week. If you do not have a primary care physician or cannot see your primary care physician, please visit the [facility]. You would benefit from outpatient referral to hands and dial inspector and liver transplant evaluation by your primary care physician. - Please call Dr. Valderrama, Publisher Assistant within 1-2 weeks of discahrge to make an appointment. ? Stop drinking alcohol. ? Eat a low sodium diet. ? If you experience any worsening or persistent symptoms call your PCP, or dial 911 or present to the emergency department. Prescriptions/Referrals Prescriptions/Med Rec: New spironolactone [Aldactone] 50 mg tablet 50 mg PO QDAY Qty: 30 0RF furosemide 20 mg tablet 20 mg PO QDAY Qty: 30 0RF lactulose 10 gram/15 mL (15 mL) solution 10 g PO QDAY Qty: 750 0RF prednisone 5 mg tablet See Rx Instructions .ROUTE .COMPLEX Qty: 147 0RF Taper: Prednisone Taper 20 mg TWICE A DAY for 7 Days and 0 Hour 15 mg TWICE A DAY for 7 Days and 0 Hour 10 mg TWICE A DAY for 7 Days and 0 Hour 10 mg DAILY for 7 Days 5 mg DAILY for 7 Days Rx Instructions: See Taper orally pantoprazole [Protonix] 40 mg tablet,delayed release (DR/EC) 40 mg PO QDAY Qty: 35 0RF Discontinued lactulose 10 gram/15 mL solution Referrals: Arturo Jean MD [Primary Care Provider] - Harmony Valderrama MD [Physician] - Patient/Caregiver Discharge Instructions Education Materials: Treating Cirrhosis, Understanding Cirrhosis, Alcoholism: Getting Help, Alcohol Addiction, ED Cholecystitis, Confirmed, ED Hypokalemia Print Language: South Korean Stand Alone Forms: Annie Award Info., Patient Portal Info Letter Discharge Order Discharge Orders: Discharge (Routine); Ordered 08/11/24 Ordered By: Kenyatta Seay Quality Discharge Quality Measures VTE prophylaxis (SCDs)
[2024-08-11 09:55] LABS: Basophils % (Auto) 0 % (0-2.5); Eosinophils # (Auto) 0.2 Thou/mm3 (0.0-0.5); Eosinophils % (Auto) 1 % (0-10); Hemoglobin 11.9 g/dL (13.5-16.0); Immature Granulocytes % (Auto) 4 % (0-0); Immature Granulocytes Auto 0.56 Thou/mm3 (0.00-0.00); Lymphocytes # (Auto) 1.6 Thou/mm3 (1.0-4.8); Lymphocytes % (Auto) 10 % (10-50); Mean Corpuscular Hemoglobin 30.8 pg (25.0-35.0); Mean Corpuscular Volume 91 fL (80-100); Monocytes # (Auto) 0.4 Thou/mm3 (0.0-0.8); Monocytes % (Auto) 2 % (0-12); Neutrophils # (Auto) 12.7 Thou/mm3 (1.8-7.7); Neutrophils % (Auto) 82 % (37-80); Nucleated Red Blood Cell % 0 /100 WBC (0); Platelet Count 466 Thou/mm3 (140-440); RDW Standard Deviation 65.9 fL (35.1-43.9); Red Blood Count 3.86 Miln/mm3 (4.50-5.90); White Blood Count 15.4 Thou/mm3 (3.8-10.6)
[2024-08-11 10:39] LABS: Alanine Aminotransferase 139 U/L (10-49); Albumin, Serum 3.3 gm/dL (3.5-5.0); Albumin/Globulin Ratio 0.8 (1.2-2.2); Alkaline Phosphatase 164 U/L (46-116); Anion Gap 10 (7-16); Aspartate Amino Transferase 309 U/L (0-34); BUN/Creatinine Ratio 14 Ratio (12-20); Blood Urea Nitrogen 10 mg/dL (9-23); Calcium (Corrected) 8.6 mg/dL (8.5-10.1); Carbon Dioxide 21.1 mMol/L (20.0-31.0); Chloride 100 mMol/L (98-107); Creatinine (Component) 0.7 mg/dL (0.6-1.3); Estimated Creatinine Clearance 164.8 mL/min (>60); Globulin 3.9 gm/dL (2.3-3.5); Glucose 173 mg/dL (74-106); Osmolality,Calculated 265 (275-295); Potassium 2.8 mMol/L (3.4-5.1); Sodium 131 mMol/L (136-145); Total Protein 7.2 gm/dL (5.7-8.2); eGFR > 60 See Note
[2024-08-11 10:41] LABS: Bilirubin,Total 19.9 mg/dL (0.3-1.2)
--- NOTE | 2024-08-11 10:55 | ESPR_ITS ---
Documentation for date of: 08/11/24 Subjective Subjective Interval history: Patient evaluated Discussed endoscopic findings with the patient Exam Vital Signs Temp Pulse Resp BP Pulse Ox O2 Del Method O2 Flow Rate 96.9 F 71 20 127/78 96 Room Air 3 08/11/24 08:00 08/11/24 08:48 08/11/24 08:00 08/11/24 08:48 08/11/24 08:00 08/11/24 08:00 08/10/24 17:50 Objective Labs 08/11/24 09:36 08/11/24 13:49 Labs: Laboratory Results - last 24 hr 08/10/24 08/11/24 08/11/24 05:03 05:15 09:36 WBC 15.4 H RBC 3.86 L Hgb 11.9 L Hct 35.0 L MCV 91 MCH 30.8 MCHC 34.0 RDW Std Deviation 65.9 H Plt Count 466 H Neut % (Auto) 82 H Lymph % (Auto) 10 [place] % (Auto) 2 Eos % (Auto) 1 Baso % (Auto) 0 Neut # (Auto) 12.7 H Lymph # (Auto) 1.6 [place] # (Auto) 0.4 Eos # (Auto) 0.2 Baso # (Auto) 0.0 Immature Gran # (Auto) 0.56 H Absolute Nucleated RBC 0.00 Immature Gran % 4 H Neutrophils % (Manual) 70 Monocytes % (Manual) 4 Metamyelocytes % 3 H Myelocytes % 1 H Nucleated RBC % 0 Band Neutrophils 8 H D Lymphocytes (Manual) 14 L Sodium 131 L Potassium 2.8 L D Chloride 100 Carbon Dioxide 21.1 Anion Gap 10 BUN 10 Creatinine 0.7 Estim Creat Clear Calc 164.8 eGFR > 60 BUN/Creatinine Ratio 14 Glucose 173 H D Calculated Osmolality 265 L Calcium 8.0 L Corrected Calcium 8.6 Phosphorus 2.3 L Magnesium 2.2 Total Bilirubin 19.9 H* D AST 309 H ALT 139 H Alkaline Phosphatase 164 H D Total Protein 7.2 Albumin 3.3 L Globulin 3.9 H Albumin/Globulin Ratio 0.8 L Impressions Impression: # Acute posthemorrhagic anemia Okay to Assessment & Plan A&P Narrative # Alcoholic liver disease which is pretty advanced with a MELD score of 65 at the moment Recently patient has complete abstain from alcohol His prognosis is extremely poor and he is not a candidate for a liver transplant Conservative management Follow the LFTs over the next 24 to 48 hours if they continue to improve no need for any steroids if they start deteriorating Suggest a short course of prednisone # Significant epistaxis bleed Would recommend an ENT consultation for possible posterior nasal packing or cauterization Can be difficult for cauterization because of the coagulopathy present due to chronic liver disease # Patient does not have acute cholecystitis most likely edema of the gallbladder wall is due to underlying cirrhotic liver disease and hypoalbuminemia Will need an upper endoscopy prior to discharge to prophylactically to the band ligation of the esophageal varices for better morbidity and mortality in this clinical setting Thank you very much for the opportunity to participate in the care of this patient Time Spent With Patient Time: Total time spent is greater than 50% in coordination of care (as documented) at patient's floor/unit and/or counseling patient:
[2024-08-11] MEDS: POTASSIUM CHLORIDE 20 mEq TABCR 40 MEQ PO (10:58)
[2024-08-11] MEDS: POTASSIUM CHL 10 mEq IVPB 10 MEQ/100 ML BAG 100 MEQ IV ×2 (11:19→12:08)
[2024-08-11 14:18] LABS: Albumin, Serum 3.4 gm/dL (3.5-5.0); Anion Gap 6 (7-16); BUN/Creatinine Ratio 13 Ratio (12-20); Blood Urea Nitrogen 10 mg/dL (9-23); Calcium (Corrected) 8.5 mg/dL (8.5-10.1); Carbon Dioxide 21.6 mMol/L (20.0-31.0); Chloride 103 mMol/L (98-107); Creatinine (Component) 0.8 mg/dL (0.6-1.3); Estimated Creatinine Clearance 144.2 mL/min (>60); Glucose 131 mg/dL (74-106); Osmolality,Calculated 263 (275-295); Phosphorous 2.1 mg/dL (2.4-5.1); Potassium 3.9 mMol/L (3.4-5.1); Sodium 131 mMol/L (136-145); eGFR > 60 See Note
[2024-08-13 19:50] LABS: Sm Antibody <1.0 NEG AI (<1.0 NEGATIVE)
[2024-08-14 06:27] LABS: ANA Pattern NUCLEAR, SPECKLED; ANA Screen, IFA POSITIVE (NEGATIVE); Ceruloplasmin* 27 mg/dL (14-30); IgG, Serum* 1823 mg/dL (600-1640); LKM-1 Antibody (IgG)* <20.0 U; Sm/RNP Antibody <1.0 NEG AI (<1.0 NEGATIVE)
== END 2024-08-11 16:35 | disposition home or self-care (01) | DRG 280 ==
LOC: SERX 22:15 → SERHOLD 23:14 → S2NX 08-07 01:16
PROVIDERS: Nurse Practitioner Primary Care; Specialist; Student in an Organized Health Care Education/Training Program; Admitting Provider Student in an Organized Health Care Education/Training Program; Emergency Provider Emergency Medicine; PCP Family Medicine; Visit Provider Internal Medicine
PROC: 0DBK8ZX Excision of Ascending Colon, Via Natural or Artificial Opening Endoscopic, Diagnostic (ICD-10-PCS; CPT 43239; principal; 2024-08-10 16:00)
PROC: 0DJD8ZZ Inspection of Lower Intestinal Tract, Via Natural or Artificial Opening Endoscopic (ICD-10-PCS; CPT 45378; principal; 2024-08-10 18:30)
DX: K70.30 Alcoholic cirrhosis of liver without ascites (principal); K70.40 Alcoholic hepatic failure without coma; K70.10 Alcoholic hepatitis without ascites; F10.10 Alcohol abuse, uncomplicated; D62 Acute posthemorrhagic anemia; R04.0 Epistaxis; K29.70 Gastritis, unspecified, without bleeding; I85.10 Secondary esophageal varices without bleeding; K64.9 Unspecified hemorrhoids; D12.2 Benign neoplasm of ascending colon; K55.20 Angiodysplasia of colon without hemorrhage; Y90.0 Blood alcohol level of less than 20 mg/100 ml; K82.8 Other specified diseases of gallbladder; E87.6 Hypokalemia; E88.09 Other disorders of plasma-protein metabolism, not elsewhere classified; K76.0 Fatty (change of) liver, not elsewhere classified; I10 Essential (primary) hypertension; E87.1 Hypo-osmolality and hyponatremia; D68.4 Acquired coagulation factor deficiency; E83.39 Other disorders of phosphorus metabolism; E78.1 Pure hyperglyceridemia; Z56.0 Unemployment, unspecified; Z79.899 Other long term (current) drug therapy
CPT/HCPCS: 36415; 36430; 74177; 76705; 80048; 80053; 80061; 80069; 80074; 80307; 80320; 81001; 82140; 82150; 82248; 82330; 82390; 82728; 82784; 82945; 83540; 83550; 83615; 83690; 83735; 83970; 84100; 84157; 84443; 85014; 85018; 85025; 85610; 85730; 86038; 86039; 86235; 86308; 86376; 86703; 86850; 86900; 86901; 86923; 86927; 87086; 89051; 96361; 96365; 96367; 96368; 99285; A4217; A4649; J0612; J0692; J0696; J1200; J1940; J2175; J2250; J2354; J2470; J2543; J3010; J3430; J3480; J3490; J7030; J7050; J7512; P9016; P9060; Q9967; S8037; 74181; A9270; G0480; J1836

== ENCOUNTER 2024-09-15 03:32 | Inpatient (IN) | payer MEDICAID, SELFPAY ==
[2024-09-15] VITALS (10 sets, daily range): BP systolic 124–155; BP diastolic 73–99; PULSE 69–115; RESP 18–95; TEMP 36.6–37.4; O2SAT 95–97; BMI 30.7; BMI 33.1; BMI 34.1
--- NOTE | 2024-09-15 | XR_ITS ---
MRI abdomen, without contrast. MRCP Date and time of exam: September 15, 2024 1155 hrs. Indications: Abdominal pain and distention beginning 4 days ago, jaundice beginning 2 months ago, history acute acalculous cholecystitis August 06, 2024 Technique: Multiple axial and coronal images of the abdomen have been obtained with the Siemens 1.5T MRI scanner. Images obtained included T1 weighted transverse images, T2-weighted transverse images, T2-weighted transverse images fat-suppressed, T2 weighted haste fat suppressed transverse images, T1 weighted images, in and out of phase images, T2-weighted coronal images, breath hold, T2 weighted haze coronal images as well as T2 weighted coronal thick slab images, MRCP. Findings: Cirrhosis, liver nodular in contour, hepatomegaly 20 cm Significant ascites The gallbladder is contracted The common hepatic and common bile ducts are poorly visualized and are not enlarged AP splenic dimension 13 cm No hydronephrosis No definite pancreatic mass Impression: Cirrhosis Significant ascites The gallbladder is contracted and not diagnostically visualized No extrahepatic biliary tract dilatation Mild splenomegaly Recommend repeating the gallbladder sonogram with fasting
--- NOTE | 2024-09-15 03:54 | PD.EDRME ---
Rapid Medical Screening Exam [facility] Arrival date/time: 09/15/24 03:32 39M with history of HTN and alcoholic cirrhosis presents to ED with several days of worsening ab swelling and bloating/pain. Patient ran out of his normal meds including lasix and lactulose. He tried to see PCP, but that person wasn't responding. Patient has not had a para before. Chief Complaint: Abdominal Pain Vital signs: Vital Signs Temperature 98.2 F 09/15/24 03:42 Pulse Rate 109 H 09/15/24 03:42 Respiratory Rate 20 09/15/24 03:42 Blood Pressure 148/96 H 09/15/24 03:42 Pulse Oximetry (%) 97 09/15/24 03:42 Oxygen Delivery Method Room Air 09/15/24 03:42
[2024-09-15 05:43] LABS: Basophils # (Auto) 0.1 Thou/mm3 (0.0-0.2); Basophils % (Auto) 1 % (0-2.5); Eosinophils # (Auto) 0.1 Thou/mm3 (0.0-0.5); Eosinophils % (Auto) 1 % (0-10); Hematocrit 33.5 % (41.0-53.0); Hemoglobin 11.5 g/dL (13.5-16.0); Immature Granulocytes % (Auto) 1 % (0-0); Immature Granulocytes Auto 0.07 Thou/mm3 (0.00-0.00); Lymphocytes # (Auto) 2.3 Thou/mm3 (1.0-4.8); Lymphocytes % (Auto) 16 % (10-50); Mean Corpuscular HGB Conc 34.3 g/dl (31.0-37.0); Mean Corpuscular Hemoglobin 32.6 pg (25.0-35.0); Mean Corpuscular Volume 95 fL (80-100); Monocytes # (Auto) 1.1 Thou/mm3 (0.0-0.8); Monocytes % (Auto) 7 % (0-12); Neutrophils # (Auto) 10.8 Thou/mm3 (1.8-7.7); Neutrophils % (Auto) 75 % (37-80); Nucleated Red Blood Cell % 0 /100 WBC (0); Platelet Count 285 Thou/mm3 (140-440); RDW Standard Deviation 60.7 fL (35.1-43.9); Red Blood Count 3.53 Miln/mm3 (4.50-5.90); White Blood Count 14.4 Thou/mm3 (3.8-10.6)
[2024-09-15 05:58] LABS: INR 1.6 (0.9-1.3); Partial Thromboplastin Time 31.3 Seconds (22.0-36.0); Prothrombin Time 17.1 Seconds (9.0-12.2)
[2024-09-15 06:05] LABS: Alanine Aminotransferase 120 U/L (10-49); Albumin, Serum 3.2 gm/dL (3.5-5.0); Albumin/Globulin Ratio 0.7 (1.2-2.2); Alkaline Phosphatase 264 U/L (46-116); Anion Gap 10 (7-16); Aspartate Amino Transferase 172 U/L (0-34); BUN/Creatinine Ratio 11 Ratio (12-20); Bilirubin,Total 16.6 mg/dL (0.3-1.2); Blood Urea Nitrogen 8 mg/dL (9-23); Calcium 8.1 mg/dL (8.3-10.6); Calcium (Corrected) 8.7 mg/dL (8.5-10.1); Carbon Dioxide 20.3 mMol/L (20.0-31.0); Chloride 103 mMol/L (98-107); Creatinine (Component) 0.7 mg/dL (0.6-1.3); Estimated Creatinine Clearance 168.8 mL/min (>60); Globulin 4.8 gm/dL (2.3-3.5); Glucose 101 mg/dL (74-106); Lipase 64 U/L (12-53); Osmolality,Calculated 264 (275-295); Potassium 3.4 mMol/L (3.4-5.1); Sodium 133 mMol/L (136-145); eGFR > 60 See Note
--- NOTE | 2024-09-15 07:41 | XR_ITS ---
Examination: Abdomen sonogram, Limited Date and time of exam: September 15, 2024 0854 hrs. Indications: Right lower abdominal pain beginning yesterday Technique: Real-time eli scale transabdominal sonographic images of the upper abdomen obtained. Findings: Contracted gallbladder Gallbladder wall 0.5 cm Common bile duct 0.4 cm Pancreas obscured by bowel gas Hepatomegaly 20.2 cm nodular contour no focal liver lesions Mild ascites Normal hepatopedal portal venous flow Patent IVC Impression: Cirrhosis Mild ascites Repeat the gallbladder portion of the study with fasting
--- NOTE | 2024-09-15 07:41 | XR_ITS ---
Examination: CT abdomen with intravenous contrast CT pelvis with intravenous contrast 2-D coronal reconstructions 2-D sagittal reconstructions Date and time of exam:September 15, 2024 0840 hrs. Indications: Diagnosis cirrhosis with onset of abdominal pain since yesterday Comparison: August 06, 2024. CTDI: vol (mGy) 12.9 DLP: (mGycm) 830 Technique: Multiple axial sections of the abdomen and pelvis have been obtained. 64 slice high-resolution scanner used. 3 mm axial sections have been obtained, post intravenous injection 60 cc [id number] 2-D sagittal, coronal reconstructions obtained. Low dose protocols were performed. One or more of the following dose reduction techniques were used; automated exposure control, adjustment of the mA and/or KV according to patient size, use of iterative reconstruction technique. Findings: Cirrhosis, liver nodular in contour Hepatosplenomegaly Moderate ascites Gallstones No pancreatic or adrenal mass Portosystemic collateral vessels medial to the spleen No bowel obstruction Aorta normal size No hydronephrosis Diffuse wall thickening involving the colon and small bowel Urinary bladder intact Impression: Cirrhosis Portal hypertension Hepatic colopathy, hepatic enteropathy No bowel obstruction Moderate ascites
--- NOTE | 2024-09-15 10:09 | PRELIM_ITS ---
CT scan of the abdomen and pelvis with intravenous contrast (axial sections with sagittal and coronal reformats); September 15, 2024 at 0840 hours Clinical History: Abdominal distention. Comparison: No prior study is available for comparison at the time of interpretation. Findings: Subsegmental atelectasis is noted at the lung bases. The gallbladder is contracted. The spleen is enlarged, measuring 16.4 cm in length. The main portal vein is dilated, measuring 1.8 cm in caliber. The liver, pancreas, kidneys and adrenals are otherwise unremarkable. No evidence of bowel obstruction. The appendix is not visualized. There is thickening versus underdistention of the cecum and ascending colon. There are occasional colonic diverticula without evidence of diverticulitis. There is no mesenteric or retroperitoneal adenopathy. The urinary bladder is partially distended. There is moderate to severe ascites. There is no free air or abscess. The osseous structures are unremarkable. Impression: 1. No evidence of bowel obstruction, free air or abscess. 2. Features of portal hypertension with moderate splenomegaly, portal colopathy and moderate to severe ascites. 3. Other findings as described above. Report Electronically Signed By: Gen Schulte 09/15/2024 10:08:24 AM [EST]
--- NOTE | 2024-09-15 11:00 | PD.EDADULT ---
ED General RME/HPI General Chief complaint: Abdominal Pain Stated complaint: ABDOMINAL PAIN Time Seen by Provider: 09/15/24 04:01 Arrival date/time: 09/15/24 03:32 RME / HPI RME / HPI narrative: 09/15/24 03:32 RME: 39M with history of HTN and alcoholic cirrhosis presents to ED with several days of worsening ab swelling and bloating/pain. Patient ran out of his normal meds including lasix and lactulose. He tried to see PCP, but that person wasn't responding. Patient has not had a para before. ALEXI HPI: 39-year-old male with a history of liver cirrhosis who presents to the emergency department with 4 to 5 days of worsening abdominal swelling, bloating, and lower quadrant pain. He denies fevers, chills or sweats. He states he also has a mild cough for the last 4 days. He has not experienced bloating before, has not had issues with ascites or required paracentesis. Related Data Previous Rx's ?Medication ?Instructions ?Recorded furosemide 20 mg tablet 20 mg PO QDAY #30 tabs 09/17/24 lactulose 10 gram/15 mL (15 mL) 10 g (15 mL) PO QDAY #750 mL 09/17/24 oral solution pantoprazole 40 mg tablet,delayed 40 mg PO QDAY #35 tabs 09/17/24 release (Protonix) prednisone 5 mg tablet See Rx Instructions .Route 09/17/24 .COMPLEX #147 tabs spironolactone 50 mg tablet 50 mg PO QDAY #30 tabs 09/17/24 (Aldactone) Allergies Allergy/AdvReac Type Severity Reaction Status Date / Time pregabalin (From Lyrica) Allergy Severe Swelling Verified 08/09/24 16:36 of Lip/Tongue/Throat tramadol Allergy Severe Nausea Verified 08/09/24 16:36 Review of Systems Review of Systems Systems Reviewed: All systems reviewed, normal except as documented ED Exam Narrative Physical exam: GENERAL APPEARANCE: AxOx4, generally well-appearing, no acute distress, grossly jaundiced HEENT: NC, AT. MMM. EOMI, clear conjunctiva, oropharynx clear, bilateral scleral icterus NECK: Supple without lymphadenopathy. No stiffness or restricted ROM. HEART: Normal rate and regular rhythm, normal S1/S1, no m/r/g LUNGS: CTAB, moving air well. No crackles or wheezes are heard. ABDOMEN: Distended, soft, possible fluid wave, bilateral lower quadrant tenderness, left greater than right, with good bowel sounds heard. BACK: No midline C/T/L spine pain or deformity, No CVAT, no obvious deformity. EXTREMITIES: Without cyanosis, clubbing or edema. MUSCULOSKELETAL: FROM of all major joints, no chest tenderness NEUROLOGICAL: Grossly nonfocal. Alert and oriented, moving all 4 extremities. CN not formally tested but appear grossly intact. Observed to ambulate with normal gait. Skin: Warm and dry without any rash. Course Quality Measures none Orders Category Date Time Status COVID-19 Screening Questionnaire NOW Care 09/15/24 13:[address] Screening NOW Care 09/15/24 07:41 Completed Decision to Admit X1 Care 09/15/24 13:30 Completed IV [Insert IV] NOW Care 09/15/24 08:30 Active MRI Screening NOW Care 09/15/24 10:27 Active Nursing Core Measures: NOW Care 09/15/24 09:11 Active Obtain Written Consent For: .NOW Care 09/15/24 09:[address] abdomen pelvis w con Stat Exams 09/15/24 07:41 Completed MR MRCP Stat Exams 09/15/24 Completed US gall bladder Stat Exams 09/15/24 07:41 Completed Blood Culture (Lab) Stat Lab 09/15/24 11:05 Results CBC Stat Lab 09/15/24 05:30 Completed CMP [Comprehensive Metabolic Panel] Stat Lab 09/15/24 05:30 Completed INR [Prothrombin Time with INR] Stat Lab 09/15/24 05:30 Completed Lipase Stat Lab 09/15/24 05:30 Completed PTT [Partial Thromboplastin Time] Stat Lab 09/15/24 05:30 Completed cefTRIAXone/D5w 1gm IV premix [Rocephin/D5w 1gm IV Med 09/15/24 10:27 Discontinued premix] 50 ml IV X1 Vital Signs Vital signs: Vital Signs Temperature 98.2 F 09/15/24 03:42 Pulse Rate 109 H 09/15/24 03:42 Respiratory Rate 20 09/15/24 03:42 Blood Pressure 148/96 H 09/15/24 03:42 Pulse Oximetry (%) 97 09/15/24 03:42 Oxygen Delivery Method Room Air 09/15/24 03:42 Procedures -ED Paracentesis Time Out Performed: Yes Indication: possible spontaneous bacterial peritonitis Procedure: diagnostic paracentesis Location: LLQ Local Anesthetic: lidocaine 1% Amount of anesthesia used (mL): 4 Bedside Ultrasound Used: yes, real-time guidance Preparation: sterile prep and drape Amount of fluid obtained (mL): 0 Additional Comments: Real-time ultrasound guidance showed small pockets of fluid between folds of intestines, 3 attempts were made which was unsuccessful to access these small pockets. Procedure was aborted at this point, and unsuccessful, 0 point loss MDM Patient data External records reviewed:: [facility] previous records (CT scan July 2024 on my review of the images shows no ascites.) Clinical information provided by:: patient Social determinants that could affect healthcare access:: alcohol use Patient has the following chronic illnesses:: Cirrhosis How is presenting disease/condition affected by chronic disease/condition?: caused by Evaluation data The following diagnostics were reviewed and interpreted by me:: lab results, radiology exam(s) and EKG tracing(s) Lab and/or radiology exams considered but not ordered:: As per narrative Interpretation Summary: As per narrative Medications Medications considered but not ordered:: None Medication administrations:: Medication Administration History Acetaminophen (Acetaminophen 325 Mg Tablet) 650 mg PO Q6H PRN PRN Reason: PAIN OR FEVER > 101 Stop: 10/15/24 15:33 Folic Acid (Folic Acid 1 Mg Tablet) 1 mg PO QDAY [facility] Stop: 10/16/24 08:59 Last Admin: 09/17/24 08:05 Dose: 1 mg Documented By: Admin: 09/16/24 08:32 Dose: 1 mg Documented By: YAIAM Ceftriaxone Sodium/Dextrose (Rocephin/D5w 2gm) 2 gm in 50 mls @ 100 mls/hr IV QDAY [facility] Stop: 09/25/24 08:59 Vancomycin HCl (Vancomycin/Water 1250 Mg Ivpb) 250 mls @ 120 mls/hr IV Q8HR [facility] Stop: 09/24/24 11:59 Last Admin: 09/17/24 14:01 Dose: 120 mls/hr Documented By: YAIMA Lactulose (Lactulose Syrup 20 Gm/30 Ml Udc) 20 gm PO TID EFE; Protocol Stop: 10/15/24 15:44 Last Admin: 09/17/24 14:01 Dose: 20 gm Documented By: Admin: 09/17/24 05:40 Dose: Not Given Documented By: JESSIE Non-Admin Reason: NPO Admin: 09/16/24 21:33 Dose: 20 gm Documented By: Admin: 09/16/24 13:28 Dose: 20 gm Documented By: Admin: 09/16/24 05:01 Dose: 20 gm Documented By: Admin: 09/15/24 21:11 Dose: 20 gm Documented By: Admin: 09/15/24 17:20 Dose: 20 gm Documented By: AM Ondansetron HCl (Ondansetron Inj 2 Mg/Ml Inj 2 Ml) 4 mg IV Q6H PRN; Protocol PRN Reason: NAUSEA OR VOMITING Stop: 10/15/24 15:33 Pantoprazole Sodium (Pantoprazole Inj 40 Mg Vial) 40 mg IVP QDAY [facility] Stop: 10/16/24 08:59 Last Admin: 09/17/24 08:09 Dose: 40 mg Documented By: Admin: 09/16/24 08:33 Dose: 40 mg Documented By: YAIMA Pharmacy Consult (Vancomycin Pharmacy To Dose 1 Each Each) 1 each IV QDAY PRN PRN Reason: PROTOCOL Stop: 10/17/24 11:44 Prednisone (Prednisone 20 Mg Tablet) 40 mg PO QDAY [facility] Stop: 10/16/24 08:59 Last Admin: 09/17/24 08:05 Dose: 40 mg Documented By: Admin: 09/16/24 08:32 Dose: 40 mg Documented By: YAIMA Sennosides (Senna Tablet) 2 tab PO BID PRN; Protocol PRN Reason: CONSTIPATION Stop: 10/15/24 15:33 Spironolactone (Spironolactone 25 Mg Tablet) 25 mg PO BID [facility] Stop: 10/15/24 20:59 Last Admin: 09/17/24 08:05 Dose: 25 mg Documented By: Admin: 09/16/24 21:33 Dose: 25 mg Documented By: Admin: 09/16/24 08:32 Dose: 25 mg Documented By: Admin: 09/15/24 21:08 Dose: 25 mg Documented By: BHARAT Thiamine HCl (Thiamine 100 Mg Tablet) 100 mg PO QDAY [facility] Stop: 10/16/24 08:59 Last Admin: 09/17/24 08:07 Dose: 100 mg Documented By: Admin: 09/16/24 08:32 Dose: 100 mg Documented By: YAIMA Discontinued Medications Ceftriaxone Sodium/Dextrose (Rocephin/D5w 1gm Iv Premix) 50 mls @ 100 mls/hr IV X1 ONE Stop: 09/15/24 10:56 Last Infusion: 09/15/24 12:10 Dose: Infused Documented By: Admin: 09/15/24 11:16 Dose: 100 mls/hr Documented By: AM Ceftriaxone Sodium/Dextrose (Rocephin/D5w 1gm Iv Premix) 50 mls @ 100 mls/hr IV QDAY [facility] Stop: 09/23/24 08:59 Last Admin: 09/17/24 08:04 Dose: 100 mls/hr Documented By: Infusion: 09/16/24 09:03 Dose: Infused Documented By: Admin: 09/16/24 08:33 Dose: 100 mls/hr Documented By: YAIMA Lidocaine HCl (Lidocaine Inj Pf 1% 30 Ml Vial) Confirm Administered Dose 30 ml .ROUTE .STK-MED ONE Stop: 09/17/24 12:06 Last Admin: 09/17/24 16:00 Dose: Not Given Documented By: CS Non-Admin Reason: Duplicate Medication on eMAR Phytonadione (Phytonadione Inj 10 Mg/Ml Amp) 10 mg SC X1 ONE Stop: 09/15/24 15:54 Last Admin: 09/15/24 17:21 Dose: 10 mg Documented By: AM Potassium Chloride (Potassium Chloride 20 Meq Tabcr) 20 meq PO X1 ONE Stop: 09/17/24 08:22 Last Admin: 09/17/24 10:10 Dose: 20 meq Documented By: CS Above Consultations Consultation(s) initiated? (list below): No Diagnosis Differential Diagnosis ED Complaint MDM: Spontaneous bacterial peritonitis, colitis, diverticulitis Most likely diagnosis given after review of the tests above:: See below Admission Indicated Admission indicated?: indicated Explain why admission is indicated or not indicated:: as per narrative Admission Request Was there a request for admission?: Yes Admission Attestation Admission request attestation: Discussed case with [Dr. Ward] from Hospitalist service regarding admission. Discussed patients ED course, exam findings, labs, and radiology results. The Hospitalist [agrees] to accept the patient for admission. Disposition Plan Disposition Plan: Admit Medical Decision Making MDM Narrative MDM Narrative: Mr Cuadra has known cirrhosis EMR review showing critically high bilirubin, peak at August 06, 2024, who presents with rapid onset of abdominal ascites with duration of 3 to 4 days. During his admission in July CT of the abdomen was done at that time which shows no ascites. Today he also has lower abdominal pain and a cough prompting him to come to the emergency department. He does have some abdominal distention is difficult to assess for fluid wave, but is not tense or taut. He does have marked lower abdominal tenderness, nonsurgical without rebound or guarding. CT does confirm a moderate amount of ascites and interval development from his CT done just over a month ago. CT also shows stigmata of hepatic colopathy. Concerning for translocation and SBP I did attempt ultrasound-guided diagnostic paracentesis and was unsuccessful. Real-time ultrasound showed several loops of bowel that were very shallow or between folds acc there were pockets of essible fluid however was not able to access and aspirated for analysis. Laboratory testing is significant for a moderate leukocytosis at 14,400 which appears to be improving from his previous. His liver enzymes also appear to be improving where his bilirubin is now currently down to 16. Blood cultures have been sent and he will be covered empirically for gram-positive cocci's, Rocephin was given. This unfortunately will sterilize his peritoneal fluid, however would be beneficial to admit for monitoring, continue antibiotics while cultures are pending. If possible peritoneal dialysis can be done with IR course could be sterile by then, however would be useful to ensure that he does not frankly have SBP. Case discussed with hospitalist service and agrees to admit on IV antibiotics pending cultures and possible repeat attempt at his paracentesis (diagnostic). Differential Diagnosis Differential Diagnosis: Spontaneous bacterial peritonitis, colitis, diverticulitis Lab Data 09/17/24 04:27 09/17/24 04:27 Labs: Lab Results 09/15/24 Range/Units 05:30 WBC 14.4 H (3.8-10.6) Thou/mm3 RBC 3.53 L (4.50-5.90) Miln/mm3 Hgb 11.5 L (13.5-16.0) g/dL Hct 33.5 L (41.0-53.0) % MCV 95 (80-100) fL MCH 32.6 (25.0-35.0) pg MCHC 34.3 (31.0-37.0) g/dl RDW Std Deviation 60.7 H (35.1-43.9) fL Plt Count 285 D (140-440) Thou/mm3 Neut % (Auto) 75 (37-80) % Lymph % (Auto) 16 (10-50) % Gregory % (Auto) 7 (0-12) % Eos % (Auto) 1 (0-10) % Baso % (Auto) 1 (0-2.5) % Neut # (Auto) 10.8 H (1.8-7.7) Thou/mm3 Lymph # (Auto) 2.3 (1.0-4.8) Thou/mm3 Gregory # (Auto) 1.1 H (0.0-0.8) Thou/mm3 Eos # (Auto) 0.1 (0.0-0.5) Thou/mm3 Baso # (Auto) 0.1 (0.0-0.2) Thou/mm3 Immature Gran # (Auto) 0.07 H (0.00-0.00) Thou/mm3 Absolute Nucleated RBC 0.00 (0.00-0.00) Thou/mm3 Immature Gran % 1 H (0-0) % Nucleated RBC % 0 (0) /100 WBC PT 17.1 H (9.0-12.2) Seconds INR 1.6 H (0.9-1.3) APTT 31.3 (22.0-36.0) Seconds Sodium 133 L (136-145) mMol/L Potassium 3.4 (3.4-5.1) mMol/L Chloride 103 (98-107) mMol/L Carbon Dioxide 20.3 (20.0-31.0) mMol/L Anion Gap 10 (7-16) BUN 8 L (9-23) mg/dL Creatinine 0.7 (0.6-1.3) mg/dL Estim Creat Clear Calc 168.8 (>60) mL/min eGFR > 60 (60 - ) See Note BUN/Creatinine Ratio 11 L (12-20) Ratio Glucose 101 (74-106) mg/dL Calculated Osmolality 264 L (275-295) Calcium 8.1 L (8.3-10.6) mg/dL Corrected Calcium 8.7 (8.5-10.1) mg/dL Total Bilirubin 16.6 H (0.3-1.2) mg/dL AST 172 H (0-34) U/L ALT 120 H (10-49) U/L Alkaline Phosphatase 264 H (46-116) U/L Total Protein 8.0 (5.7-8.2) gm/dL Albumin 3.2 L (3.5-5.0) gm/dL Globulin 4.8 H (2.3-3.5) gm/dL Albumin/Globulin Ratio 0.7 L (1.2-2.2) Lipase 64 H (12-53) U/L Discharge Plan Plan Patient Disposition: Admit Acute Care w/in Hospital Problem List Clinical Impression: Abdominal pain, Ascites, Cirrhosis
[2024-09-15] MEDS: cefTRIAXone/D5w 1gm IV premix 50 ML IV (11:16)
--- NOTE | 2024-09-15 11:45 | PC.NURSE ---
Pt in MRI
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
[2024-09-15] MEDS: LACTULOSE SYRUP 20 GM/30 ML UDC PO ×2 (17:20→21:11)
[2024-09-15] MEDS: PHYTONADIONE INJ 10 MG/ML AMP SC (17:21)
[2024-09-15] MEDS: SPIRONOLACTONE 25 MG TABLET PO (21:08)
[2024-09-15 22:45] LABS: Collection Type, Urine Clean Catch
[2024-09-15 22:56] LABS: Bilirubin,Urine 4+ (Negative); Blood,Urine Negative (Negative); Clarity,Urine Turbid (Clear/Hazy); Color,Urine Drk-Yellow (Lt Yel-Yel); Glucose, Urine Negative (Negative); Ketones,Urine Negative (Negative); Leukocyte Esterase,Urine Negative (Negative); Nitrite,Urine Negative (Negative); PH,Urine 6.5 (5.0-7.0); Protein,Urine 1+ (Neg - Trace); RBC,Urine 5 /hpf (0-3); Specific Gravity,Urine 1.044 (1.001-1.035); Squamous Epithelial Cell,Urine < 1 /hpf (0-5); WBC,Urine 6 /hpf (0-5)
[2024-09-15 22:57] LABS: Sperm,Urine Present
[2024-09-16] VITALS (12 sets, daily range): BP systolic 116–138; BP diastolic 76–91; PULSE 99–125; RESP 16–93; TEMP 36.3–36.6; O2SAT 93–95
[2024-09-16] MEDS: LACTULOSE SYRUP 20 GM/30 ML UDC PO ×3 (05:01→21:33)
[2024-09-16 05:44] LABS: Basophils # (Auto) 0.1 Thou/mm3 (0.0-0.2); Basophils % (Auto) 1 % (0-2.5); Eosinophils # (Auto) 0.1 Thou/mm3 (0.0-0.5); Eosinophils % (Auto) 1 % (0-10); Hematocrit 28.3 % (41.0-53.0); Hemoglobin 9.6 g/dL (13.5-16.0); Immature Granulocytes % (Auto) 1 % (0-0); Immature Granulocytes Auto 0.06 Thou/mm3 (0.00-0.00); Lymphocytes # (Auto) 2.9 Thou/mm3 (1.0-4.8); Lymphocytes % (Auto) 23 % (10-50); Mean Corpuscular HGB Conc 33.9 g/dl (31.0-37.0); Mean Corpuscular Hemoglobin 32.4 pg (25.0-35.0); Mean Corpuscular Volume 96 fL (80-100); Monocytes # (Auto) 0.8 Thou/mm3 (0.0-0.8); Monocytes % (Auto) 7 % (0-12); Neutrophils # (Auto) 8.5 Thou/mm3 (1.8-7.7); Neutrophils % (Auto) 69 % (37-80); Nucleated Red Blood Cell % 0 /100 WBC (0); Platelet Count 271 Thou/mm3 (140-440); RDW Standard Deviation 61.1 fL (35.1-43.9); Red Blood Count 2.96 Miln/mm3 (4.50-5.90); White Blood Count 12.4 Thou/mm3 (3.8-10.6)
[2024-09-16 05:50] LABS: INR 1.6 (0.9-1.3); Prothrombin Time 17.2 Seconds (9.0-12.2)
[2024-09-16 06:12] LABS: Alanine Aminotransferase 91 U/L (10-49); Albumin, Serum 2.4 gm/dL (3.5-5.0); Alkaline Phosphatase 207 U/L (46-116); Anion Gap 9 (7-16); Aspartate Amino Transferase 135 U/L (0-34); BUN/Creatinine Ratio 14 Ratio (12-20); Bilirubin,Direct 9.5 mg/dL (0.0-0.3); Bilirubin,Total 12.8 mg/dL (0.3-1.2); Blood Urea Nitrogen 7 mg/dL (9-23); Calcium 7.3 mg/dL (8.3-10.6); Carbon Dioxide 18.6 mMol/L (20.0-31.0); Chloride 106 mMol/L (98-107); Cholesterol 146 mg/dL (132-200); Creatinine (Component) 0.5 mg/dL (0.6-1.3); Estimated Creatinine Clearance 241.7 mL/min (>60); Glucose 86 mg/dL (74-106); HDL Cholesterol < 5 mg/dL (40-60); LDL Cholesterol,Calculated 101 mg/dL (0-130); Magnesium 1.8 mg/dL (1.6-2.6); Osmolality,Calculated 265 (275-295); Phosphorous 3.3 mg/dL (2.4-5.1); Potassium 3.6 mMol/L (3.4-5.1); Sodium 134 mMol/L (136-145); Thyroid Stimulating Hormone 1.06 uIU/mL (0.55-4.78); Total Protein 6.4 gm/dL (5.7-8.2); Triglycerides 199 mg/dL (30-150); eGFR > 60 See Note
[2024-09-16] MEDS: THIAMINE 100 MG TABLET PO (08:32)
[2024-09-16] MEDS: predniSONE 20 MG TABLET 40 MG PO (08:32)
[2024-09-16] MEDS: FOLIC ACID 1 MG TABLET PO (08:32)
[2024-09-16] MEDS: SPIRONOLACTONE 25 MG TABLET PO ×2 (08:32→21:33)
[2024-09-16] MEDS: cefTRIAXone/D5w 1gm IV premix 50 ML IV (08:33)
[2024-09-16] MEDS: PANTOPRAZOLE INJ 40 MG VIAL IVP (08:33)
--- NOTE | 2024-09-16 14:05 | ESPR_ITS ---
Documentation for date of: 09/16/24 Subjective Subjective Interval history: Patient evaluated the bedside, feeling better compared to yesterday, pending a paracentesis on Tuesday, will continue antibiotics for empiric treatment of SBP. Noting downtrending bilirubin, continue with steroids for alcoholic hepatitis. Exam Vital Signs Temp Pulse Resp BP Pulse Ox O2 Del Method 97.7 F 104 H 16 138/90 H 94 L Room Air 09/16/24 12:00 09/16/24 12:09/16/24 12:09/16/24 12:09/16/24 12:09/16/24 12:00 Narrative Exam Physical Exam: GENERAL: Awake, answering questions appropriately, appears stated age, circular icterus and jaundice HEENT: NC/AT. Moist mucosa. PERRLA/EOMI. Scleral icterus. CARDIO: Heart RRR, no obvious murmurs, no JVD. PULM: No coughing or visible SOB. Lungs CTA B/L. GI: Abdomen soft, but distended, mild tenderness around umbilicus +BS. Male pattern hair distribution, normal shaped umbilicus SKIN/MSK/EXT: No wounds/rashes/edema/amputations noted. +Pedal pulses present B/L. NEURO: Oriented x3, medical collections representative strength 5/5, Moves extremities x4. Objective Labs 09/16/24 04:55 09/16/24 04:55 Labs: Laboratory Results - last 24 hr 09/15/24 09/16/24 21:46 04:55 WBC 12.4 H RBC 2.96 L Hgb 9.6 L Hct 28.3 L MCV 96 MCH 32.4 MCHC 33.9 RDW Std Deviation 61.1 H Plt Count 271 Neut % (Auto) 69 Lymph % (Auto) 23 [place] % (Auto) 7 Eos % (Auto) 1 Baso % (Auto) 1 Neut # (Auto) 8.5 H Lymph # (Auto) 2.9 [place] # (Auto) 0.8 Eos # (Auto) 0.1 Baso # (Auto) 0.1 Immature Gran # (Auto) 0.06 H Absolute Nucleated RBC 0.00 Immature Gran % 1 H Nucleated RBC % 0 PT 17.2 H INR 1.6 H Sodium 134 L Potassium 3.6 Chloride 106 Carbon Dioxide 18.6 L Anion Gap 9 BUN 7 L Creatinine 0.5 L Estim Creat Clear Calc 241.7 eGFR > 60 BUN/Creatinine Ratio 14 Glucose 86 Calculated Osmolality 265 L Calcium 7.3 L Phosphorus 3.3 Magnesium 1.8 Total Bilirubin 12.8 H D Direct Bilirubin 9.5 H AST 135 H ALT 91 H Alkaline Phosphatase 207 H D Total Protein 6.4 Albumin 2.4 L D Triglycerides 199 H Cholesterol 146 LDL Cholesterol, Calc 101 HDL Cholesterol < 5 L Cholesterol/HDL Ratio 29.0 H TSH 1.06 Ur Collection Type Clean Catch Urine Color Drk-Yellow A Urine Clarity Turbid A Urine pH 6.5 Ur Specific [place] 1.044 H Urine Protein 1+ A Urine Glucose (UA) Negative Urine Ketones Negative Urine Blood Negative Urine Nitrite Negative Urine Bilirubin 4+ A Urine Urobilinogen (Auto) 2.0 Ur Leukocyte Esterase Negative Urine RBC 5 H Urine WBC 6 H Ur Squamous Epith Cells < 1 Urine Bacteria None Urine Sperm Present A Quality Measures Quality Measures none Assessment & Plan Assessment Current Active Medications: Generic Name Dose Route Start Last Admin Trade Name Freq PRN Reason Stop Dose Admin Acetaminophen 650 mg 09/15/24 15:34 Acetaminophen 325 Mg Tablet PO 10/15/24 15:33 Q6H PRN PAIN OR FEVER > 101 Folic Acid 1 mg 09/16/24 09:00 09/16/24 08:32 Folic Acid 1 Mg Tablet PO 10/16/24 08:59 1 mg QDAY EFE Administration Ceftriaxone Sodium/Dextrose 50 mls @ 100 mls/hr 09/16/24 09:00 09/16/24 08:33 Rocephin/D5w 1gm Iv Premix IV 09/23/24 08:59 100 mls/hr QDAY EFE Administration Lactulose 20 gm 09/15/24 15:45 09/16/24 13:28 Lactulose Syrup 20 Gm/30 Ml Udc PO 10/15/24 15:44 20 gm TID EFE Administration Protocol Ondansetron HCl 4 mg 09/15/24 15:34 Ondansetron Inj 2 Mg/Ml Inj 2 Ml IV 10/15/24 15:33 Q6H PRN NAUSEA OR VOMITING Protocol Pantoprazole Sodium 40 mg 09/16/24 09:00 09/16/24 08:33 Pantoprazole Inj 40 Mg Vial IVP 10/16/24 08:59 40 mg QDAY EFE Administration Prednisone 40 mg 09/16/24 09:00 09/16/24 08:32 Prednisone 20 Mg Tablet PO 10/16/24 08:59 40 mg QDAY EFE Administration Sennosides 2 tab 09/15/24 15:34 Senna Tablet PO 10/15/24 15:33 BID PRN CONSTIPATION Protocol Spironolactone 25 mg 09/15/24 21:00 09/16/24 08:32 Spironolactone 25 Mg Tablet PO 10/15/24 20:59 25 mg BID EFE Administration Thiamine HCl 100 mg 09/16/24 09:00 09/16/24 08:32 Thiamine 100 Mg Tablet PO 10/16/24 08:59 100 mg QDAY EFE Administration Plan Patient is a 39-year-old male with past medical history of undiagnosed hypertension, decompensated cirrhosis, alcohol abuse disorder recently discharged from hospital following episode of alcoholic hepatitis, who presented to the ER complaining of abdominal distention. Reported having acute abdominal swelling for the past 4 days, patient's friends and relatives noticed the swelling and urged him to get evaluated. At the time of presentation patient is lying comfortably in bed reporting some mild tenderness around the umbilicus, abdominal distention is present. Patient reported being compliant with prescribed medications, reported being abstinent from alcohol for the last 1 month and a half. Patient denied having any fever, dark stools or hematemesis, or confusion, denied having any chest pain or shortness of breath at this moment. ER physician had already evaluated the patient and attempted to do paracentesis to send for analysis which was unsuccessful as bowel loops overlying pockets of fluid. We admitted the patient to the medical floor due to concern for acute onset ascites, possible SBP, need for IV antibiotics and US guided paracentesis. #Acute onset ascites, in the setting of decompensated liver cirrhosis and portal hypertension. #Concern for spontaneous bacterial peritonitis DDx?SBP vs portal vein thrombosis vs hepatic vein thrombosis vs CHF In the ED, patient presented with stable vitals, ultrasound-guided paracentesis was attempted by ER physician, which was unsuccessful due to bowel loops surrounding pocket of fluid, initial imaging showed concern for acute calculus cholecystitis, MRCP was done which was negative for cholecystitis or CBD dilation. Portal vein showed normal hepatopetal flow on gallbladder ultrasound. Given IV ceftriaxone x 1 due to concern for SBP in the emergency room. Peritoneal fluid results may be skewed following antibiotic therapy, will get SAAG, ratio might still be helpful. Brittany's discriminant function score more than 32, patient is still a candidate for steroids, despite having completed steroid taper following discharge from prior hospitalization. Ultrasound showed Normal hepatopedal flow in portal vein. Plan: ? Ultrasound-guided paracentesis and peritoneal fluid panel ordered, will submit cytology form once fluid is drained. ? IV ceftriaxone 1 g daily ? Lactulose 20 g 3 times daily ? GI prophylaxis with Protonix IV 40 Mg daily ? P.o. methylprednisone 40 mg daily #Acute cholecystitis?ruled out Patient had negative physical exam for right upper quadrant abdominal tenderness, initial concern for cholecystitis on CT, MRCP was done which ruled out CBD dilation or cholecystitis. #Alcohol abuse disorder Patient reported abstinence from alcohol for the last 1-1/2 months, will continue to monitor, will order symptom triggered CIWA if patient shows signs of withdrawal. ?P.o. thiamine and folic acid #Coagulopathy Sequelae of decompensated cirrhosis, will give vitamin K subcu x 1 Disposition: MED tele DVT prophylaxis: SCD GI prophylaxis: Protonix Diet: low sodium Lines: PIV CODE STATUS: Full Assessment and plan discussed with my attending physician Dr. Hans Ward (PGY-2)- Internal medicine resident Attending Provider Attestation/Addendum Patient was seen and examined. He has abdominal distention with minimal discomfort. The patient is afebrile. He is on IV antibiotic for possible SBP. Paracentesis was attempted yesterday in the ED..
--- NOTE | 2024-09-16 15:47 | PC.SS ---
Tylor Cuadra is a 39-year-old male admitted to [place] for [facility]. SS conducted bedside contact with the patient to complete initial assessment and to discuss discharge planning.? Patient confirmed demographic information. Patient identifies his mother Brea Cuadra [phone] as his surrogate decision maker. Patient resides at home with his mom and dad. Pt states he is able to complete most ADL?s independently, but his mother assist him with his needs. Per Pt he has requested DME via his PCP. PCP is Dr. Rodgers [facility], last visit was Aug 2024 (has appointment on Tuesday). RX of choice is [facility]. DC option discussed and pt wishes to return home. Pts family will provide transportation upon DC. No further intervention required at this time, social work msw would be available to address any further concerns.
[2024-09-17] VITALS (13 sets, daily range): BP systolic 108–145; BP diastolic 59–98; PULSE 75–107; RESP 17–97; TEMP 36.2–36.7; O2SAT 93–99
--- NOTE | 2024-09-17 | XR_ITS ---
Examination: Ultrasound-guided paracentesis Abdominal sonogram limited Date and time of exam: September 17, 2024 1235 hours INDICATIONS: Cirrhosis, increasing ascites and abdominal distention this week Informed consent provided. A timeout was completed verifying correct patient, procedure, site, positioning, and special adequate movement if applicable. Technique: Multiple sonographic images of the abdomen have been obtained. Appropriate area for paracentesis was marked. Local anesthesia is obtained with 1% lidocaine. Yueh catheter is successfully introduced. Findings: Abdominal sonographic images demonstrate sufficient ascitic fluid for paracentesis. After placing the Yueh catheter, 3600 cc of fluid were successfully removed. During and after completion of the procedure the patient appear in satisfactory and stable condition with no complications observed. Estimated blood loss 0 cc Impression: Abdominal ascites Successful ultrasound-guided paracentesis as described above
[2024-09-17 05:46] LABS: Basophils % (Auto) 0 % (0-2.5); Eosinophils # (Auto) 0.1 Thou/mm3 (0.0-0.5); Eosinophils % (Auto) 1 % (0-10); Hematocrit 31.5 % (41.0-53.0); Hemoglobin 10.5 g/dL (13.5-16.0); Immature Granulocytes % (Auto) 1 % (0-0); Immature Granulocytes Auto 0.07 Thou/mm3 (0.00-0.00); Lymphocytes # (Auto) 3.8 Thou/mm3 (1.0-4.8); Lymphocytes % (Auto) 29 % (10-50); Mean Corpuscular HGB Conc 33.3 g/dl (31.0-37.0); Mean Corpuscular Volume 96 fL (80-100); Monocytes # (Auto) 0.8 Thou/mm3 (0.0-0.8); Monocytes % (Auto) 6 % (0-12); Neutrophils # (Auto) 8.6 Thou/mm3 (1.8-7.7); Neutrophils % (Auto) 64 % (37-80); Nucleated Red Blood Cell % 0 /100 WBC (0); Platelet Count 248 Thou/mm3 (140-440); RDW Standard Deviation 59.8 fL (35.1-43.9); Red Blood Count 3.28 Miln/mm3 (4.50-5.90); White Blood Count 13.4 Thou/mm3 (3.8-10.6)
[2024-09-17 06:27] LABS: Anion Gap 10 (7-16); BUN/Creatinine Ratio 16 Ratio (12-20); Blood Urea Nitrogen 8 mg/dL (9-23); Calcium 7.6 mg/dL (8.3-10.6); Carbon Dioxide 19.5 mMol/L (20.0-31.0); Chloride 106 mMol/L (98-107); Creatinine (Component) 0.5 mg/dL (0.6-1.3); Estimated Creatinine Clearance 241.7 mL/min (>60); Glucose 77 mg/dL (74-106); Osmolality,Calculated 267 (275-295); Potassium 3.4 mMol/L (3.4-5.1); Sodium 135 mMol/L (136-145); eGFR > 60 See Note
[2024-09-17] MEDS: cefTRIAXone/D5w 1gm IV premix 50 ML IV (08:04)
[2024-09-17] MEDS: SPIRONOLACTONE 25 MG TABLET PO ×2 (08:05→22:27)
[2024-09-17] MEDS: predniSONE 20 MG TABLET 40 MG PO (08:05)
[2024-09-17] MEDS: FOLIC ACID 1 MG TABLET PO (08:05)
[2024-09-17] MEDS: THIAMINE 100 MG TABLET PO (08:07)
[2024-09-17] MEDS: PANTOPRAZOLE INJ 40 MG VIAL IVP (08:09)
--- NOTE | 2024-09-17 10:01 | PC.SS ---
Follow up note: Pt will have paracentesis. Pt will return home upon dc.
[2024-09-17] MEDS: POTASSIUM CHLORIDE 20 mEq TABCR PO (10:10)
--- NOTE | 2024-09-17 11:38 | ECHO_ITS ---
Transthoracic Echo Report Ht (in): 70 Wt (lb): 238 Exam Location: Echo Lab Status: Inpatient Central Supply Assistant: Tova Templeton Indications: Procedure Performed: BP: 146 / 88 HR: 106 Technical Quality: Technically difficult study MEASUREMENTS (Male / Female) Normal Values 2D ECHO LV Diastolic Diameter PLAX 4.9 cm 4.2 - 5.9 / 3.9 - 5.3 cm LV Systolic Diameter PLAX 3.2 cm IVS Diastolic Thickness 0.8 cm 0.6 - 1.0 / 0.6 - 0.9 cm LVPW Diastolic Thickness 1.0 cm 0.6 - 1.0 / 0.6 - 0.9 cm LV Relative Wall Thickness 0.4 LVOT Diameter 1.9 cm LA Volume Index 29.3 cm?/m? 16 - 28 cm?/m? DOPPLER AV Peak Velocity 169.0 cm/s AV Peak Gradient 11.4 mmHg AV Mean Gradient 5.0 mmHg AV Velocity Time Integral 27.9 cm LVOT Peak Velocity 125.0 cm/s LVOT Peak Gradient 6.3 mmHg LVOT Velocity Time Integral 25.3 cm LVOT Cardiac Index 3241.2 cm?/min?m? AV Area Cont Eq vti 2.6 cm? AV Area Cont Eq pk 2.1 cm? MV Area PHT 4.7 cm? Mitral E Point Velocity 84.4 cm/s Mitral A Point Velocity 70.3 cm/s Mitral E to A Ratio 1.2 LV E' Lateral Velocity 13.2 cm/s Mitral E to LV E' Lateral Ratio 6.4 LV E' Septal Velocity 12.0 cm/s Mitral E to LV E' Septal Ratio 7.0 PV Peak Velocity 137.0 cm/s PV Peak Gradient 7.5 mmHg FINDINGS Left Ventricle Normal left ventricular size, wall thickness, systolic function with no obvious regional wall motion abnormalities. Normal left ventricular diastolic filling pattern for age. The ejection fraction is visually estimated at 55-60 %. Right Ventricle The right ventricular size is mildy increased with normal systolic function. Left Atrium The left atrium is normal by two-dimensional, color flow and Doppler imaging with no structural abnormalities, no thrombus formation present. Right Atrium The right atrium is normal by two-dimensional imaging, color flow and Doppler imaging with no structural abnormalities, no thrombus formation present. Atrial Septum The interatrial septum appears normal with no evidence of a shunt. Aorta The aorta is normal by two-dimensional, color flow and Doppler interrogation. Mitral Valve The mitral valve is normal by two-dimensional, color flow and Doppler interrogation. There is no significant mitral valve regurgitation, stenosis or prolapse. Aortic Valve The aortic valve is trileaflet and normal by two-dimensional, color flow and Doppler interrogation. There is no significant aortic valve regurgitation. Tricuspid Valve The tricuspid valve is normal by two-dimensional, color flow and Doppler interrogation. There is trace tricuspid valve regurgitation. Pulmonic Valve The pulmonic valve is not well visualized. There is no significant pulmonic valve regurgitation. Vessels The pulmonary artery appears normal. The inferior vena cava pulmonary and hepatic veins appear normal. Pericardium The pericardium is normal by two-dimensional imaging. There is no significant pericardial effusion. CONCLUSIONS Indication: GPC bacteremia No clear evidence of vegetation on the valves. Consider a GABRIELLE If clinical suscpicion high as TTE is suboptimal. Normal LV size, wall thickness. Normal LV function. Estimated EF 55-60 %. Normal diastolic functiona nd normal chamber sizes. Normal RV size and function. Trace to mild TR. Tyron Omalley (Electronically Signed) Final Date: 20 September 2024 08:05
[2024-09-17] MEDS: VANCOMYCIN/WATER 1250 MG IVPB 250 ML 120 MG IV ×2 (14:01→22:28)
[2024-09-17] MEDS: LACTULOSE SYRUP 20 GM/30 ML UDC PO ×2 (14:01→22:27)
--- NOTE | 2024-09-17 14:16 | ESPR_ITS ---
Documentation for date of: 09/17/24 Subjective Subjective Interval history: Patient was seen and examined at bedside this AM. No acute exents overnight. Patient tolerating diet, adequate urine output and mentation is at baseline. Patient endorses improvement of abdominal distention. Blood cultures from 09/15/2024 grew GPC preliminary. Started patient on vancomycin IV Repeat blood cultures taken today Patient had ultrasound-guided paracentesis with 3600 cc of fluid drained. WBC count out of SBP range Exam Vital Signs Temp Pulse Resp BP Pulse Ox O2 Del Method 97.1 F 104 H 18 134/80 H 95 Room Air 09/17/24 12:00 09/17/24 12:00 09/17/24 12:00 09/17/24 12:00 09/17/24 12:09/17/24 12:00 Narrative Exam Constitutional Alert, oriented x 3 and comfortable. Middle-age male, obese, generalized jaundice, scleral icterus. HEENT Vision grossly intact. Patent nares. Trachea midline Respiratory Chest normal on inspection and clear auscultation bilaterally Cardiovascular S1 and S2 audible, RRR. No murmurs carotid bruit. No gross JVD. Abdominal Distended, abdominal striae, nontender to palpation. Bowel sounds present Genitourinary No bladder tenderness, no flank pain. Normal to palpation Musculoskeletal Extremities tone within normal limits. 2+ pitting edema up to knees bilaterally Neurological CN II - XII grossly intact. Extremity motor and sensation grossly intact. Skin Warm, dry and intact. No apparent lesions. Psychiatric Patient has good affect, is cooperative Objective Labs 09/18/24 05:17 09/18/24 05:17 Labs: Laboratory Results - last 24 hr 09/17/24 04:27 WBC 13.4 H RBC 3.28 L Hgb 10.5 L Hct 31.5 L MCV 96 MCH 32.0 MCHC 33.3 RDW Std Deviation 59.8 H Plt Count 248 Neut % (Auto) 64 Lymph % (Auto) 29 [place] % (Auto) 6 Eos % (Auto) 1 Baso % (Auto) 0 Neut # (Auto) 8.6 H Lymph # (Auto) 3.8 [place] # (Auto) 0.8 Eos # (Auto) 0.1 Baso # (Auto) 0.0 Immature Gran # (Auto) 0.07 H Absolute Nucleated RBC 0.00 Immature Gran % 1 H Nucleated RBC % 0 Sodium 135 L Potassium 3.4 Chloride 106 Carbon Dioxide 19.5 L Anion Gap 10 BUN 8 L Creatinine 0.5 L Estim Creat Clear Calc 241.7 eGFR > 60 BUN/Creatinine Ratio 16 Glucose 77 Calculated Osmolality 267 L Calcium 7.6 L Quality Measures Quality Measures none Assessment & Plan Assessment Current Active Medications: Generic Name Dose Route Start Last Admin Trade Name Freq PRN Reason Stop Dose Admin Acetaminophen 650 mg 09/15/24 15:34 Acetaminophen 325 Mg Tablet PO 10/15/24 15:33 Q6H PRN PAIN OR FEVER > 101 Folic Acid 1 mg 09/16/24 09:00 09/17/24 08:05 Folic Acid 1 Mg Tablet PO 10/16/24 08:59 1 mg QDAY EFE Administration Ceftriaxone Sodium/Dextrose 2 gm in 50 mls @ 100 mls/hr 09/18/24 09:00 Rocephin/D5w 2gm IV 09/25/24 08:59 QDAY EFE Vancomycin HCl 250 mls @ 120 mls/hr 09/17/24 12:00 09/17/24 14:01 Vancomycin/Water 1250 Mg Ivpb IV 09/24/24 11:59 120 mls/hr Q8HR EFE Administration Lactulose 20 gm 09/15/24 15:45 09/17/24 14:01 Lactulose Syrup 20 Gm/30 Ml Udc PO 10/15/24 15:44 20 gm TID EFE Administration Protocol Ondansetron HCl 4 mg 09/15/24 15:34 Ondansetron Inj 2 Mg/Ml Inj 2 Ml IV 10/15/24 15:33 Q6H PRN NAUSEA OR VOMITING Protocol Pantoprazole Sodium 40 mg 09/16/24 09:00 09/17/24 08:09 Pantoprazole Inj 40 Mg Vial IVP 10/16/24 08:59 40 mg QDAY EFE Administration Pharmacy Consult 1 each 09/17/24 11:45 Vancomycin Pharmacy To Dose 1 Each Each IV 10/17/24 11:44 QDAY PRN PROTOCOL Prednisone 40 mg 09/16/24 09:00 09/17/24 08:05 Prednisone 20 Mg Tablet PO 10/16/24 08:59 40 mg QDAY EFE Administration Sennosides 2 tab 09/15/24 15:34 Senna Tablet PO 10/15/24 15:33 BID PRN CONSTIPATION Protocol Spironolactone 25 mg 09/15/24 21:00 09/17/24 08:05 Spironolactone 25 Mg Tablet PO 10/15/24 20:59 25 mg BID EFE Administration Thiamine HCl 100 mg 09/16/24 09:00 09/17/24 08:07 Thiamine 100 Mg Tablet PO 10/16/24 08:59 100 mg QDAY EFE Administration Plan Patient is a 39-year-old male with past medical history of undiagnosed hypertension, decompensated cirrhosis, alcohol abuse disorder recently discharged from hospital following episode of alcoholic hepatitis, who presented to the ER complaining of abdominal distention. Reported having acute abdominal swelling for the past 4 days, patient's friends and relatives noticed the swelling and urged him to get evaluated. At the time of presentation patient is lying comfortably in bed reporting some mild tenderness around the umbilicus, abdominal distention is present. Patient reported being compliant with prescribed medications, reported being abstinent from alcohol for the last 1 month and a half. Patient denied having any fever, dark stools or hematemesis, or confusion, denied having any chest pain or shortness of breath at this moment. ER physician had already evaluated the patient and attempted to do paracentesis to send for analysis which was unsuccessful as bowel loops overlying pockets of fluid. We admitted the patient to the medical floor due to concern for acute onset ascites, possible SBP, need for IV antibiotics and US guided paracentesis. #GPC bacteremia Blood culture from 09/15/2024 grew GPC's preliminary Repeat blood cultures taken on 09/17 Plan: ? Started on vancomycin IV for GPC on [09/17? ? Transthoracic echocardiogram ordered to rule out endocarditis #Acute onset ascites, in the setting of decompensated liver cirrhosis and portal hypertension with coagulopathy #Concern for spontaneous bacterial peritonitis DDx?SBP vs portal vein thrombosis vs hepatic vein thrombosis vs CHF In the ED, patient presented with stable vitals, ultrasound-guided paracentesis was attempted by ER physician, which was unsuccessful due to bowel loops surrounding pocket of fluid, initial imaging showed concern for acute calculus cholecystitis. MRCP was done which was negative for cholecystitis or CBD dilation. Portal vein showed normal hepatopetal flow on gallbladder ultrasound. Given IV ceftriaxone x 1 due to concern for SBP in the emergency room. Peritoneal fluid results may be skewed following antibiotic therapy, will get SAAG, ratio might still be helpful. Maddrey's discriminant function score more than 32, patient is still a candidate for steroids, despite having completed steroid taper following discharge from prior hospitalization. Ultrasound showed Normal hepatopedal flow in portal vein. [09/17/2024] Diagnostic/therapeutic paracentesis drained 3600 cc fluid. WBC count out of SBP range SAAG 1.4 : Portal hypertension likely because of ascites Plan: ? Continue ceftriaxone 1 g IV daily for SBP prophylaxis ? Continue lactulose 20 g 3 times daily for hepatic encephalopathy prophylaxis ? Continue spironolactone 25 Mg p.o. twice daily for ascites ? Started on Lasix 40 Mg p.o. daily for ascites ? GI prophylaxis with Protonix IV 40 Mg daily ? P.o. methylprednisone 40 mg daily for elevated Maddrey score #Acute cholecystitis?ruled out Patient had negative physical exam for right upper quadrant abdominal tenderness, initial concern for cholecystitis on CT, MRCP was done which ruled out CBD dilation or cholecystitis. # History of alcohol abuse disorder Patient reported abstinence from alcohol for the last 1-1/2 months, will continue to monitor, will order symptom triggered CIWA if patient shows signs of withdrawal. Plan: ? Continue p.o. thiamine and folic acid #Coagulopathy Sequelae of decompensated cirrhosis, will give vitamin K subcu x 1 Health maintenance: Disposition: IV antibiotics for GPC bacteremia. Awaiting echo Diet: 2G sodium restricted Lines: pIVs GI Prophylaxis: Pantoprazole IV Thrombo Prophylaxis: SCDs Code status: FULL CODE Plan of care discussed with Attending Dr. Ran Baugh MD PGY 1 Attending Provider Attestation/Addendum I have discussed and was present for the essential components of the history, physical examination, diagnosis, and treatment plan with the resident. I agree with the patient's care as documented by the resident and amended herein by me. Kermit Tong DO. Although this document has been carefully reviewed, there may still be some phonetic and other typographical errors. These errors are purely grammatical due to imperfections in the software program and should not be construed in any way to compromise the substance of the patient's medical care during this visit.
[2024-09-17 14:36] LABS: Peritoneal Fluid Mononuclear 94.9 %; Peritoneal Fluid Polynuclear 5.1 %; Peritoneal Fluid WBC 58 /cmm; RBC,Peritoneal Fluid 0.002 /cmm
[2024-09-17 14:39] LABS: Peritoneal Fluid Appearance Clear; Peritoneal Fluid Color Yellow
[2024-09-17 14:50] LABS: Albumin, Peritoneal Fluid < 1.0 gm/dL; Glucose,Peritoneal Fluid 114 mg/dL; LDH,Peritoneal Fluid 28 IU/L; Protein Total,Peritoneal Fluid < 2 g/dL
[2024-09-18] VITALS (12 sets, daily range): BP systolic 122–133; BP diastolic 70–89; PULSE 70–115; RESP 16–98; TEMP 36.3–37.1; O2SAT 94–100
[2024-09-18] MEDS: VANCOMYCIN/WATER 1250 MG IVPB 250 ML 120 MG IV ×2 (05:54→15:10)
[2024-09-18] MEDS: LACTULOSE SYRUP 20 GM/30 ML UDC PO (05:55)
[2024-09-18 06:25] LABS: Basophils % (Auto) 0 % (0-2.5); Eosinophils # (Auto) 0.1 Thou/mm3 (0.0-0.5); Eosinophils % (Auto) 1 % (0-10); Hematocrit 30.9 % (41.0-53.0); Hemoglobin 10.6 g/dL (13.5-16.0); Immature Granulocytes % (Auto) 1 % (0-0); Immature Granulocytes Auto 0.07 Thou/mm3 (0.00-0.00); Lymphocytes # (Auto) 3.3 Thou/mm3 (1.0-4.8); Lymphocytes % (Auto) 25 % (10-50); Mean Corpuscular HGB Conc 34.3 g/dl (31.0-37.0); Mean Corpuscular Hemoglobin 32.4 pg (25.0-35.0); Mean Corpuscular Volume 95 fL (80-100); Monocytes # (Auto) 0.9 Thou/mm3 (0.0-0.8); Monocytes % (Auto) 7 % (0-12); Neutrophils # (Auto) 8.7 Thou/mm3 (1.8-7.7); Neutrophils % (Auto) 67 % (37-80); Nucleated Red Blood Cell % 0 /100 WBC (0); Platelet Count 261 Thou/mm3 (140-440); Red Blood Count 3.27 Miln/mm3 (4.50-5.90); White Blood Count 13.1 Thou/mm3 (3.8-10.6)
[2024-09-18 07:05] LABS: Alanine Aminotransferase 86 U/L (10-49); Albumin, Serum 2.5 gm/dL (3.5-5.0); Albumin/Globulin Ratio 0.6 (1.2-2.2); Alkaline Phosphatase 225 U/L (46-116); Anion Gap 11 (7-16); Aspartate Amino Transferase 141 U/L (0-34); BUN/Creatinine Ratio 14 Ratio (12-20); Bilirubin,Total 10.9 mg/dL (0.3-1.2); Blood Urea Nitrogen 7 mg/dL (9-23); Calcium 7.7 mg/dL (8.3-10.6); Calcium (Corrected) 8.9 mg/dL (8.5-10.1); Carbon Dioxide 18.4 mMol/L (20.0-31.0); Chloride 106 mMol/L (98-107); Creatinine (Component) 0.5 mg/dL (0.6-1.3); Estimated Creatinine Clearance 241.7 mL/min (>60); Glucose 75 mg/dL (74-106); Magnesium 1.7 mg/dL (1.6-2.6); Osmolality,Calculated 267 (275-295); Phosphorous 3.1 mg/dL (2.4-5.1); Potassium 3.4 mMol/L (3.4-5.1); Sodium 135 mMol/L (136-145); Total Protein 6.5 gm/dL (5.7-8.2); eGFR > 60 See Note
[2024-09-18] MEDS: cefTRIAXone/D5w 2gm 2 GM/50 ML BAG IV (08:43)
[2024-09-18] MEDS: PANTOPRAZOLE INJ 40 MG VIAL IVP (08:43)
[2024-09-18] MEDS: FOLIC ACID 1 MG TABLET PO (08:44)
[2024-09-18] MEDS: THIAMINE 100 MG TABLET PO (08:44)
[2024-09-18] MEDS: Furosemide 40 MG TABLET PO (08:44)
[2024-09-18] MEDS: predniSONE 20 MG TABLET 40 MG PO (08:44)
[2024-09-18] MEDS: SPIRONOLACTONE 25 MG TABLET PO ×2 (08:45→23:03)
[2024-09-18] MEDS: POTASSIUM CHLORIDE 20 mEq TABCR PO (08:48)
--- NOTE | 2024-09-18 09:46 | PC.NURSE ---
PATIENT UP EXPRESSING IS TIRED OF BEING HERE AND WANTS TO GO HOME. ASKING FOR AN UPDATE ON HIS CONDITION/CARE. INFORMED THERE IS A POSSIBILITY OF PICC LINE INSERTION. INFORMED WHAT IT IS AND POSSIBLE REASON FOR NEEDING ONE. ALSO INFORMED OF ORDER FOR ECHO. PATIENT IMMEDIATELY STATED HE WOULD NOT DO THAT. ASKED WHY, HE REPLIED I DONT HAVE HEART PROBLEMS. PATIENT INFORMED OF THE R/O FOR ENDOCARDITIS AND ENCOURAGED TO ALLOW IT TO BE DONE. PATIENT ALSO C/O RECTAL SORENESS D/T MULTIPLE BMS CAUSED BY LACTULOSE.
[2024-09-18 13:53] LABS: Vancomycin,Trough 15.1 mcg/mL (5.0-10.0)
--- NOTE | 2024-09-18 13:56 | ESPR_ITS ---
<Statement entered by Diego Mejia MD - 09/18/24 16:04> Agree with plan and examination finding on the note below. Patient seen and examined at bedside today. Labs and imaging reviewed. Patient care discussed with my attending and co-resident . Documentation for date of: 09/18/24 Subjective Subjective Interval history: Patient was seen and examined at bedside this AM. No acute exents overnight. Patient tolerating diet, adequate urine output and mentation is at baseline. Patient complained of 12 episodes of diarrhea overnight. Will discontinue lactulose 09/15/2024 blood culture grew staph hemolyticus sensitive to vancomycin. 09/17/2024 blood cultures NBG x 24 hours preliminary Currently on day 2 of IV vancomycin Pending transthoracic echocardiogram to rule out endocarditis Will consult infectious disease. Appreciate Recommendations Exam Vital Signs Temp Pulse Resp BP Pulse Ox O2 Del Method 98.3 F 100 18 133/88 H 97 Room Air 09/18/24 12:00 09/18/24 12:00 09/18/24 12:00 09/18/24 12:00 09/18/24 12:09/18/24 12:00 Narrative Exam Constitutional Alert, oriented x 3 and comfortable. Middle-age male, obese, generalized jaundice, scleral icterus. HEENT Vision grossly intact. Patent nares. Trachea midline Respiratory Chest normal on inspection and clear auscultation bilaterally Cardiovascular S1 and S2 audible, RRR. No murmurs carotid bruit. No gross JVD. Abdominal Distended, abdominal striae, nontender to palpation. Bowel sounds present Genitourinary No bladder tenderness, no flank pain. Normal to palpation Musculoskeletal Extremities tone within normal limits. 2+ pitting edema up to knees bilaterally Neurological CN II - XII grossly intact. Extremity motor and sensation grossly intact. Skin Warm, dry and intact. No apparent lesions. Psychiatric Patient has good affect, is cooperative Objective Labs 09/18/24 05:17 09/18/24 05:17 Labs: Laboratory Results - last 24 hr 09/17/24 09/18/24 09/18/24 12:45 05:17 13:10 WBC 13.1 H RBC 3.27 L Hgb 10.6 L Hct 30.9 L MCV 95 MCH 32.4 MCHC 34.3 RDW Std Deviation 57.0 H Plt Count 261 Neut % (Auto) 67 Lymph % (Auto) 25 [place] % (Auto) 7 Eos % (Auto) 1 Baso % (Auto) 0 Neut # (Auto) 8.7 H Lymph # (Auto) 3.3 [place] # (Auto) 0.9 H Eos # (Auto) 0.1 Baso # (Auto) 0.0 Immature Gran # (Auto) 0.07 H Absolute Nucleated RBC 0.00 Immature Gran % 1 H Nucleated RBC % 0 Sodium 135 L Potassium 3.4 Chloride 106 Carbon Dioxide 18.4 L Anion Gap 11 BUN 7 L Creatinine 0.5 L Estim Creat Clear Calc 241.7 eGFR > 60 BUN/Creatinine Ratio 14 Glucose 75 Calculated Osmolality 267 L Calcium 7.7 L Corrected Calcium 8.9 Phosphorus 3.1 Magnesium 1.7 Total Bilirubin 10.9 H D AST 141 H ALT 86 H Alkaline Phosphatase 225 H Total Protein 6.5 Albumin 2.5 L Globulin 4.0 H Albumin/Globulin Ratio 0.6 L Peritoneal Color Yellow Peritoneal Appearance Clear Peritoneal WBC 58 Peritoneal RBC 0.002 Periton Polynucl WBCs 5.1 Periton Mononucl WBCs 94.9 Peritoneal Tot Protein < 2 Peritoneal Albumin < 1.0 Peritoneal LDH 28 Peritoneal Glucose 114 Vancomycin Trough 15.1 H Quality Measures Quality Measures none Assessment & Plan Assessment Current Active Medications: Generic Name Dose Route Start Last Admin Trade Name Freq PRN Reason Stop Dose Admin Acetaminophen 650 mg 09/15/24 15:34 Acetaminophen 325 Mg Tablet PO 10/15/24 15:33 Q6H PRN PAIN OR FEVER > 101 Folic Acid 1 mg 09/16/24 09:00 09/18/24 08:44 Folic Acid 1 Mg Tablet PO 10/16/24 08:59 1 mg QDAY EFE Administration Furosemide 40 mg 09/18/24 09:00 09/18/24 08:44 Furosemide 40 Mg Tablet PO 10/18/24 08:59 40 mg QDAY EFE Administration Ceftriaxone Sodium/Dextrose 2 gm in 50 mls @ 100 mls/hr 09/18/24 09:00 09/18/24 08:43 Rocephin/D5w 2gm IV 09/25/24 08:59 100 mls/hr QDAY EFE Administration Vancomycin HCl 250 mls @ 120 mls/hr 09/17/24 12:00 09/18/24 05:54 Vancomycin/Water 1250 Mg Ivpb IV 09/24/24 11:59 120 mls/hr Q8HR EFE Administration Lactulose 10 gm 09/18/24 10:13 Lactulose Syrup 20 Gm/30 Ml Udc PO 10/18/24 20:59 BID PRN For 3-4 Bowel movements a day Protocol Ondansetron HCl 4 mg 09/15/24 15:34 Ondansetron Inj 2 Mg/Ml Inj 2 Ml IV 10/15/24 15:33 Q6H PRN NAUSEA OR VOMITING Protocol Pantoprazole Sodium 40 mg 09/16/24 09:00 09/18/24 08:43 Pantoprazole Inj 40 Mg Vial IVP 10/16/24 08:59 40 mg QDAY EFE Administration Pharmacy Consult 1 each 09/17/24 11:45 Vancomycin Pharmacy To Dose 1 Each Each IV 10/17/24 11:44 QDAY PRN PROTOCOL Prednisone 40 mg 09/16/24 09:00 09/18/24 08:44 Prednisone 20 Mg Tablet PO 10/16/24 08:59 40 mg QDAY EFE Administration Sennosides 2 tab 09/15/24 15:34 Senna Tablet PO 10/15/24 15:33 BID PRN CONSTIPATION Protocol Spironolactone 25 mg 09/15/24 21:00 09/18/24 08:45 Spironolactone 25 Mg Tablet PO 10/15/24 20:59 25 mg BID EFE Administration Thiamine HCl 100 mg 09/16/24 09:00 09/18/24 08:44 Thiamine 100 Mg Tablet PO 10/16/24 08:59 100 mg QDAY EFE Administration Plan Patient is a 39-year-old male with past medical history of undiagnosed hypertension, decompensated cirrhosis, alcohol abuse disorder recently discharged from hospital following episode of alcoholic hepatitis, who presented to the ER complaining of abdominal distention. Reported having acute abdominal swelling for the past 4 days, patient's friends and relatives noticed the swelling and urged him to get evaluated. At the time of presentation patient is lying comfortably in bed reporting some mild tenderness around the umbilicus, abdominal distention is present. Patient reported being compliant with prescribed medications, reported being abstinent from alcohol for the last 1 month and a half. Patient denied having any fever, dark stools or hematemesis, or confusion, denied having any chest pain or shortness of breath at this moment. ER physician had already evaluated the patient and attempted to do paracentesis to send for analysis which was unsuccessful as bowel loops overlying pockets of fluid. We admitted the patient to the medical floor due to concern for acute onset ascites, possible SBP, need for IV antibiotics and US guided paracentesis. 1. Staphylococcus hemolyticus bacteremia 09/15/2024 blood culture grew staph hemolyticus sensitive to vancomycin. 09/17/2024 blood cultures NBG x 24 hours preliminary Currently on day 2 of IV vancomycin Pending transthoracic echocardiogram to rule out endocarditis Will consult infectious disease. Appreciate Recommendations Plan: ? Continue vancomycin IV for GPC on [09/17? ? Transthoracic echocardiogram ordered to rule out endocarditis ? Infectious disease, Dr Anderson consulted. Appreciate recommendations 2. Decompensated alcoholic cirrhosis with ascites, portal hypertension and coagulopathy 3. Likely spontaneous bacterial peritonitis?resolving DDx?SBP vs portal vein thrombosis vs hepatic vein thrombosis vs CHF In the ED, patient presented with stable vitals, ultrasound-guided paracentesis was attempted by ER physician, which was unsuccessful due to bowel loops surrounding pocket of fluid, initial imaging showed concern for acute calculus cholecystitis. MRCP was done which was negative for cholecystitis or CBD dilation. Portal vein showed normal hepatopetal flow on gallbladder ultrasound. Given IV ceftriaxone x 1 due to concern for SBP in the emergency room. Peritoneal fluid results may be skewed following antibiotic therapy, will get SAAG, ratio might still be helpful. Maddrey's discriminant function score more than 32, patient is still a candidate for steroids, despite having completed steroid taper following discharge from prior hospitalization. Ultrasound showed Normal hepatopedal flow in portal vein. [09/17/2024] Diagnostic/therapeutic paracentesis drained 3600 cc fluid. WBC count out of SBP range SAAG 1.4 : Portal hypertension likely because of ascites Plan: ? Continue ceftriaxone 2 g IV daily for SBP treatment to complete on 09/21/2024 ? Discontinued lactulose as patient had 12 episodes of diarrhea. Lactulose now as needed ? Continue spironolactone 25 Mg p.o. twice daily for ascites ? Continue Lasix 40 Mg p.o. daily for ascites ? GI prophylaxis with Protonix IV 40 Mg daily ? P.o. methylprednisone 40 mg daily for elevated Maddrey score 4. Acute cholecystitis?ruled out Patient had negative physical exam for right upper quadrant abdominal tenderness, initial concern for cholecystitis on CT, MRCP was done which ruled out CBD dilation or cholecystitis. 5. History of alcohol abuse disorder Patient reported abstinence from alcohol for the last 1-1/2 months, will continue to monitor, will order symptom triggered CIWA if patient shows signs of withdrawal. Plan: ? Continue p.o. thiamine and folic acid 6. Coagulopathy Sequelae of decompensated cirrhosis, will give vitamin K subcu x 1 Health maintenance: Disposition: IV antibiotics for Bacteremia. Awaiting echo Diet: 2G sodium restricted Lines: pIVs GI Prophylaxis: Pantoprazole IV Thrombo Prophylaxis: SCDs Code status: FULL CODE Plan of care discussed with Attending Dr. Tong and PGY3 Dr. Jackie Baugh MD PGY 1 Attending Provider Attestation/Addendum I have discussed and was present for the essential components of the history, physical examination, diagnosis, and treatment plan with the resident. I agree with the patient's care as documented by the resident and amended herein by me. Kermit Tong, DO. Patient seen and evaluated this AM. Vital signs stable, patient afebrile overnight, significant labs included WBC of 13, hemoglobin stable 10.6, sodium 135, potassium 3.4, bicarb 18.4. BUN/creatinine unremarkable. T. bili slight downtrend to 10.9. Paracentesis performed yesterday, 3600 mL out. No sign of SBP per fluid studies. Blood cultures demonstrated gram-positive cocci, specifically Staph hemolyticus sensitive to daptomycin, linezolid, tetracycline and vancomycin. Will consult ID and get recommendations for outpatient antibiotic course, may need PICC line if IV antibiotics are recommended. Repeat blood cultures pending, echocardiogram pending. Will continue vancomycin for now. Although this document has been carefully reviewed, there may still be some phonetic and other typographical errors. These errors are purely grammatical due to imperfections in the software program and should not be construed in any way to compromise the substance of the patient's medical care during this visit.
--- NOTE | 2024-09-18 17:23 | PD.IDPROG ---
Subjective Subjective Interval history: nasal mrsa neg 09/15/24, so will stop the iv vanco Exam Vital Signs Temp Pulse Resp BP Pulse Ox O2 Del Method 98.3 F 100 18 133/88 H 97 Room Air 09/18/24 12:00 09/18/24 12:00 09/18/24 12:00 09/18/24 12:00 09/18/24 12:00 09/18/24 12:00 Objective - Internal Medicine Labs 09/18/24 05:17 09/18/24 05:17 Labs: Laboratory Results - last 24 hr 09/18/24 09/18/24 05:17 13:10 WBC 13.1 H RBC 3.27 L Hgb 10.6 L Hct 30.9 L MCV 95 MCH 32.4 MCHC 34.3 RDW Std Deviation 57.0 H Plt Count 261 Neut % (Auto) 67 Lymph % (Auto) 25 [place] % (Auto) 7 Eos % (Auto) 1 Baso % (Auto) 0 Neut # (Auto) 8.7 H Lymph # (Auto) 3.3 [place] # (Auto) 0.9 H Eos # (Auto) 0.1 Baso # (Auto) 0.0 Immature Gran # (Auto) 0.07 H Absolute Nucleated RBC 0.00 Immature Gran % 1 H Nucleated RBC % 0 Sodium 135 L Potassium 3.4 Chloride 106 Carbon Dioxide 18.4 L Anion Gap 11 BUN 7 L Creatinine 0.5 L Estim Creat Clear Calc 241.7 eGFR > 60 BUN/Creatinine Ratio 14 Glucose 75 Calculated Osmolality 267 L Calcium 7.7 L Corrected Calcium 8.9 Phosphorus 3.1 Magnesium 1.7 Total Bilirubin 10.9 H D AST 141 H ALT 86 H Alkaline Phosphatase 225 H Total Protein 6.5 Albumin 2.5 L Globulin 4.0 H Albumin/Globulin Ratio 0.6 L Vancomycin Trough 15.1 H Assessment & Plan A&P Narrative cirrhosis with elevated bili and inr, but normal plts. neg hep panel and hiv tests noted. abd pain. possible pneumonia with neg nasal mrsa and overall picture, will narrow to zosyn alone and see tomorrow on rounds in the afternoon Time Spent With Patient Time: Total time spent is greater than 50% in coordination of care (as documented) at patient's floor/unit and/or counseling patient:
[2024-09-19] VITALS (14 sets, daily range): BP systolic 121–150; BP diastolic 66–94; PULSE 80–117; RESP 14–96; TEMP 36.2–36.8; O2SAT 93–100; BMI 34.0
--- NOTE | 2024-09-19 | XR_ITS ---
Examination: Ultrasound-guided needle placement right basilic vein. Dual-lumen central line placement (PICC line). Fluoroscopy AP chest, portable, single view Exam date and time:Every 2024 1320 hours INDICATIONS: Need for long-term intravenous antibiotic therapy. A timeout was completed verifying correct patient, procedure, site, positioning Informed consent provided Technique: The patient's site was prepped and draped in sterile fashion. Maximum Sterile Barrier Technique used including cap, mask, sterile gown, sterile gloves, and sterile full body drape. If ultrasound technique used: sterile gel and sterile probe covers. Hand Hygiene performed using proper scrub, soap and water, or alcohol-based hand rub. Ultrasound utilized to confirm patency of the right basilic vein Utilizing ultrasonographic guidance successful 21-gauge single puncture into the right basilic vein Ultrasound images recorded and stored. 5 cc 1% lidocaine administered for local anesthetic. Successful micropuncture with a 21-gauge needle is performed. 0.18 wire guide is then introduced into the SVC under fluoroscopic guidance. Dual-lumen catheter dilator is then introduced, followed by the catheter in the SVC and proper position under fluoroscopic guidance. Successful aspiration of blood and flushing with heparinized saline is then performed in the 2 venous limbs. The catheter sutured in place. Findings: Under fluoroscopy, the tip of the catheter is in good position in the vena cava. Portable chest x-ray, post line placement is ordered. Estimated blood loss 3 cc The patient tolerated the procedure well and was in stable and satisfactory condition at completion of the procedure Impression: Successful ultrasound-guided needle placement right basilic vein Successful placement of dual lumen central line, percutaneous Fluoroscopy 0.01 minute radiation dose 1.56 milligray 1 spot fluoroscopic chest film. AP chest completion procedure demonstrates satisfactory position central line. May use central line.
[2024-09-19 05:48] LABS: Basophils # (Auto) 0.1 Thou/mm3 (0.0-0.2); Basophils % (Auto) 0 % (0-2.5); Eosinophils # (Auto) 0.1 Thou/mm3 (0.0-0.5); Eosinophils % (Auto) 1 % (0-10); Hematocrit 33.4 % (41.0-53.0); Hemoglobin 11.3 g/dL (13.5-16.0); Immature Granulocytes % (Auto) 1 % (0-0); Immature Granulocytes Auto 0.09 Thou/mm3 (0.00-0.00); Lymphocytes # (Auto) 2.6 Thou/mm3 (1.0-4.8); Lymphocytes % (Auto) 20 % (10-50); Mean Corpuscular HGB Conc 33.8 g/dl (31.0-37.0); Mean Corpuscular Hemoglobin 32.2 pg (25.0-35.0); Mean Corpuscular Volume 95 fL (80-100); Monocytes # (Auto) 0.8 Thou/mm3 (0.0-0.8); Monocytes % (Auto) 6 % (0-12); Neutrophils # (Auto) 9.3 Thou/mm3 (1.8-7.7); Neutrophils % (Auto) 71 % (37-80); Nucleated Red Blood Cell % 0 /100 WBC (0); Platelet Count 282 Thou/mm3 (140-440); RDW Standard Deviation 55.4 fL (35.1-43.9); Red Blood Count 3.51 Miln/mm3 (4.50-5.90); White Blood Count 13.1 Thou/mm3 (3.8-10.6)
[2024-09-19 06:46] LABS: Alanine Aminotransferase 91 U/L (10-49); Albumin, Serum 2.7 gm/dL (3.5-5.0); Albumin/Globulin Ratio 0.6 (1.2-2.2); Alkaline Phosphatase 213 U/L (46-116); Anion Gap 9 (7-16); Aspartate Amino Transferase 144 U/L (0-34); BUN/Creatinine Ratio 16 Ratio (12-20); Bilirubin,Total 11.5 mg/dL (0.3-1.2); Blood Urea Nitrogen 8 mg/dL (9-23); Calcium 7.5 mg/dL (8.3-10.6); Calcium (Corrected) 8.5 mg/dL (8.5-10.1); Chloride 104 mMol/L (98-107); Creatinine (Component) 0.5 mg/dL (0.6-1.3); Estimated Creatinine Clearance 241.7 mL/min (>60); Globulin 4.4 gm/dL (2.3-3.5); Glucose 78 mg/dL (74-106); Magnesium 1.7 mg/dL (1.6-2.6); Osmolality,Calculated 263 (275-295); Phosphorous 3.5 mg/dL (2.4-5.1); Potassium 3.1 mMol/L (3.4-5.1); Sodium 133 mMol/L (136-145); Total Protein 7.1 gm/dL (5.7-8.2); eGFR > 60 See Note
[2024-09-19] MEDS: cefTRIAXone/D5w 2gm 2 GM/50 ML BAG IV (08:47)
[2024-09-19] MEDS: PANTOPRAZOLE INJ 40 MG VIAL IVP (08:47)
[2024-09-19] MEDS: THIAMINE 100 MG TABLET PO (08:52)
[2024-09-19] MEDS: predniSONE 20 MG TABLET 40 MG PO (08:52)
[2024-09-19] MEDS: SPIRONOLACTONE 25 MG TABLET PO ×2 (08:52→20:55)
[2024-09-19] MEDS: Magnesium Sulfate 4 GM Ivpb 4 GM/50 ML BAG IV (08:53)
[2024-09-19] MEDS: Furosemide 40 MG TABLET PO (08:53)
[2024-09-19] MEDS: FOLIC ACID 1 MG TABLET PO (08:53)
[2024-09-19] MEDS: POTASSIUM CHLORIDE 10% 20 MEQ/15 ML UDC 40 MEQ PO (08:53)
[2024-09-19] MEDS: POTASSIUM CHL 10 mEq IVPB 10 MEQ/100 ML BAG 100 MEQ IV ×4 (08:54→16:02)
--- NOTE | 2024-09-19 09:08 | ESPR_ITS ---
<Statement entered by Ned Mukherjee MD - 09/19/24 16:55> I discussed with and supervised the graphic design intern physician involved in the care of this patient. Patient assessment and plan was discussed with entire medicine team, including my attending. I agree with the assessment and plan as documented by graphic design intern doctor. Patient care was discussed with my attending physician Dr. Ran Mukherjee, PGY-2 Documentation for date of: 09/19/24 Subjective Subjective Interval history: Patient was seen and examined at bedside this AM. No acute exents overnight. Patient tolerating diet, adequate urine output and mentation is at baseline. Patient complained of lightheadedness and anxiety due to having bills to pay. 09/15/2024 blood culture grew staph hemolyticus sensitive to vancomycin. 09/17/2024 blood cultures NBG x 48 hours preliminary Currently on day 3 of IV vancomycin Pending transthoracic echocardiogram to rule out endocarditis Infectious disease, Dr Anderson was consulted. Recommended to narrow antibiotics to Zosyn as coagulase negative Staphylococcus most likely a contaminant. Also recommended if high suspicion to obtain a transthoracic echocardiogram Exam Vital Signs Temp Pulse Resp BP Pulse Ox O2 Del Method 97.8 F 96 18 140/93 H 95 Room Air 09/19/24 08:00 09/19/24 08:53 09/19/24 08:00 09/19/24 08:53 09/19/24 08:00 09/19/24 08:00 Narrative Exam Constitutional Alert, oriented x 3 and comfortable. Middle-age male, obese, generalized jaundice, scleral icterus. HEENT Vision grossly intact. Patent nares. Trachea midline Respiratory Chest normal on inspection and clear auscultation bilaterally Cardiovascular S1 and S2 audible, RRR. No murmurs carotid bruit. No gross JVD. Abdominal Distended, abdominal striae, nontender to palpation. Bowel sounds present Genitourinary No bladder tenderness, no flank pain. Normal to palpation Musculoskeletal Extremities tone within normal limits. No lower extremity edema Neurological CN II - XII grossly intact. Extremity motor and sensation grossly intact. Skin Warm, dry and intact. No apparent lesions. Psychiatric Patient has good affect, is cooperative Objective Labs 09/19/24 05:04 09/19/24 05:04 Labs: Laboratory Results - last 24 hr 09/18/24 09/19/24 13:10 05:04 WBC 13.1 H RBC 3.51 L Hgb 11.3 L Hct 33.4 L MCV 95 MCH 32.2 MCHC 33.8 RDW Std Deviation 55.4 H Plt Count 282 Neut % (Auto) 71 Lymph % (Auto) 20 Andrews % (Auto) 6 Eos % (Auto) 1 Baso % (Auto) 0 Neut # (Auto) 9.3 H Lymph # (Auto) 2.6 Andrews # (Auto) 0.8 Eos # (Auto) 0.1 Baso # (Auto) 0.1 Immature Gran # (Auto) 0.09 H Absolute Nucleated RBC 0.00 Immature Gran % 1 H Nucleated RBC % 0 Sodium 133 L Potassium 3.1 L Chloride 104 Carbon Dioxide 20.0 Anion Gap 9 BUN 8 L Creatinine 0.5 L Estim Creat Clear Calc 241.7 eGFR > 60 BUN/Creatinine Ratio 16 Glucose 78 Calculated Osmolality 263 L Calcium 7.5 L Corrected Calcium 8.5 Phosphorus 3.5 Magnesium 1.7 Total Bilirubin 11.5 H D AST 144 H ALT 91 H Alkaline Phosphatase 213 H Total Protein 7.1 Albumin 2.7 L Globulin 4.4 H Albumin/Globulin Ratio 0.6 L Vancomycin Trough 15.1 H Quality Measures Quality Measures none Assessment & Plan Assessment Current Active Medications: Generic Name Dose Route Start Last Admin Trade Name Freq PRN Reason Stop Dose Admin Acetaminophen 650 mg 09/15/24 15:34 Acetaminophen 325 Mg Tablet PO 10/15/24 15:33 Q6H PRN PAIN OR FEVER > 101 Folic Acid 1 mg 09/16/24 09:00 09/19/24 08:53 Folic Acid 1 Mg Tablet PO 10/16/24 08:59 1 mg QDAY EFE Administration Furosemide 40 mg 09/18/24 09:00 09/19/24 08:53 Furosemide 40 Mg Tablet PO 10/18/24 08:59 40 mg QDAY EFE Administration Ceftriaxone Sodium/Dextrose 2 gm in 50 mls @ 100 mls/hr 09/18/24 09:00 09/19/24 08:47 Rocephin/D5w 2gm IV 09/25/24 08:59 100 mls/hr QDAY EFE Administration Potassium Chloride 10 meq in 100 mls @ 100 mls/hr 09/19/24 07:54 09/19/24 08:54 Kcl Ivpb IV 09/19/24 11:53 100 mls/hr Q1H EFE Administration Magnesium Sulfate 4 gm in 50 mls @ 12.5 mls/hr 09/19/24 07:55 09/19/24 08:53 Magnesium Sulfate Ivpb IV 09/19/24 11:54 12.5 mls/hr X1 ONE Administration Lactulose 10 gm 09/18/24 10:13 Lactulose Syrup 20 Gm/30 Ml Udc PO 10/18/24 20:59 BID PRN For 3-4 Bowel movements a day Protocol Ondansetron HCl 4 mg 09/15/24 15:34 Ondansetron Inj 2 Mg/Ml Inj 2 Ml IV 10/15/24 15:33 Q6H PRN NAUSEA OR VOMITING Protocol Pantoprazole Sodium 40 mg 09/16/24 09:00 09/19/24 08:47 Pantoprazole Inj 40 Mg Vial IVP 10/16/24 08:59 40 mg QDAY EFE Administration Prednisone 40 mg 09/16/24 09:00 09/19/24 08:52 Prednisone 20 Mg Tablet PO 10/16/24 08:59 40 mg QDAY EFE Administration Sennosides 2 tab 09/15/24 15:34 Senna Tablet PO 10/15/24 15:33 BID PRN CONSTIPATION Protocol Spironolactone 25 mg 09/15/24 21:00 09/19/24 08:52 Spironolactone 25 Mg Tablet PO 10/15/24 20:59 25 mg BID EFE Administration Thiamine HCl 100 mg 09/16/24 09:00 09/19/24 08:52 Thiamine 100 Mg Tablet PO 10/16/24 08:59 100 mg QDAY EFE Administration Plan Patient is a 39-year-old male with past medical history of undiagnosed hypertension, decompensated cirrhosis, alcohol abuse disorder recently discharged from hospital following episode of alcoholic hepatitis, who presented to the ER complaining of abdominal distention. Reported having acute abdominal swelling for the past 4 days, patient's friends and relatives noticed the swelling and urged him to get evaluated. At the time of presentation patient is lying comfortably in bed reporting some mild tenderness around the umbilicus, abdominal distention is present. Patient reported being compliant with prescribed medications, reported being abstinent from alcohol for the last 1 month and a half. Patient denied having any fever, dark stools or hematemesis, or confusion, denied having any chest pain or shortness of breath at this moment. ER physician had already evaluated the patient and attempted to do paracentesis to send for analysis which was unsuccessful as bowel loops overlying pockets of fluid. We admitted the patient to the medical floor due to concern for acute onset ascites, possible SBP, need for IV antibiotics and US guided paracentesis. 1. Staphylococcus haemolyticus bacteremia 09/15/2024 blood culture grew staph hemolyticus sensitive to vancomycin. 09/17/2024 blood cultures NBG x 48 hours preliminary Currently on day 3 of IV vancomycin Pending transthoracic echocardiogram to rule out endocarditis Infectious disease, Dr Anderson was consulted. Recommended to narrow antibiotics to Zosyn as coagulase negative Staphylococcus most likely a contaminant. Also recommended if high suspicion to obtain a transthoracic echocardiogram Plan: ? Continue vancomycin IV for Staph Haemolyticus on [09/17? ? Transthoracic echocardiogram ordered to rule out endocarditis ? Infectious disease, Dr Anderson consulted. Appreciate recommendations 2. Decompensated alcoholic cirrhosis with ascites, portal hypertension and coagulopathy 3. Likely spontaneous bacterial peritonitis?resolving DDx?SBP vs portal vein thrombosis vs hepatic vein thrombosis vs CHF In the ED, patient presented with stable vitals, ultrasound-guided paracentesis was attempted by ER physician, which was unsuccessful due to bowel loops surrounding pocket of fluid, initial imaging showed concern for acute calculus cholecystitis. MRCP was done which was negative for cholecystitis or CBD dilation. Portal vein showed normal hepatopetal flow on gallbladder ultrasound. Given IV ceftriaxone x 1 due to concern for SBP in the emergency room. Peritoneal fluid results may be skewed following antibiotic therapy, will get SAAG, ratio might still be helpful. Maddrey's discriminant function score more than 32, patient is still a candidate for steroids, despite having completed steroid taper following discharge from prior hospitalization. Ultrasound showed Normal hepatopedal flow in portal vein. [09/17/2024] Diagnostic/therapeutic paracentesis drained 3600 cc fluid. WBC count out of SBP range SAAG 1.4 : Portal hypertension likely because of ascites Plan: ? Continue ceftriaxone 2 g IV daily for SBP treatment to complete on 09/21/2024 ? Lactulose as needed, titrate to achieve 2?3 bowel movements per day. ? Continue spironolactone 25 Mg p.o. twice daily for ascites ? Continue Lasix 40 Mg p.o. daily for ascites ? GI prophylaxis with Protonix IV 40 Mg daily ? Discontinued prednisone 40 mg daily for elevated Maddrey score as patient has had more than 30-day treatment. ? Started prednisone taper of prednisone 15 Mg p.o. twice daily for 1 week and to decrease by 5 Mg every week 4. Acute cholecystitis?ruled out Patient had negative physical exam for right upper quadrant abdominal tenderness, initial concern for cholecystitis on CT, MRCP was done which ruled out CBD dilation or cholecystitis. 5. History of alcohol abuse disorder Patient reported abstinence from alcohol for the last 1-1/2 months, will continue to monitor, will order symptom triggered CIWA if patient shows signs of withdrawal. Plan: ? Continue p.o. thiamine and folic acid 6. Coagulopathy Sequelae of decompensated cirrhosis, given vitamin K subcu x 1 Health maintenance: Disposition: IV antibiotics for Bacteremia. Awaiting echo. ID recommendations. Diet: 2G sodium restricted Lines: pIVs GI Prophylaxis: Pantoprazole IV Thrombo Prophylaxis: SCDs Code status: FULL CODE Plan of care discussed with Attending Dr. Tong and PGY2 Dr. Lonny Baugh MD PGY 1 Attending Provider Attestation/Addendum I have discussed and was present for the essential components of the history, physical examination, diagnosis, and treatment plan with the resident. I agree with the patient's care as documented by the resident and amended herein by me. Kemrit Tong, DO. Patient seen and evaluated this AM. Vital signs stable, patient afebrile overnight, significant labs include a WBC of 13, hemoglobin stable at 11, potassium 3.1, sodium 133 and a T. bili of 11.5 which is been relatively stable. Infectious disease consulted, recommend switching to Zosyn however I will double check on this considering resistance to most antimicrobials. PICC line will be placed as the patient will need 14 days of IV antibiotics pending negative blood cultures which appears to be on 2/3 which demonstrates NGTD. Echo also pending as well as cultures for the patient's paracentesis fluid. Continue to monitor closely, likely discharge to SNF in 1 to 2 days, the SNF will need to accommodate 3 times daily dosing for IV antibiotics at this point. Although this document has been carefully reviewed, there may still be some phonetic and other typographical errors. These errors are purely grammatical due to imperfections in the software program and should not be construed in any way to compromise the substance of the patient's medical care during this visit.
--- NOTE | 2024-09-19 09:44 | PC.SS ---
Follow up note: Gram positive bacteremia. On IV antibiotic. SS met with pt who states he has a follow up zoom meeting with PCP, Dr. Merlos from [facility] today. Patient's last follow up appointment was September 08, 2024. Pt states his come can assists him at home and he does not have preferences for Services.
[2024-09-19 11:07] LABS: INR 1.5 (0.9-1.3); Partial Thromboplastin Time 30.4 Seconds (22.0-36.0); Prothrombin Time 16.2 Seconds (9.0-12.2)
--- NOTE | 2024-09-19 13:30 | PD.IDPROG ---
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 Exam Vital Signs Temp Pulse Resp BP Pulse Ox O2 Del Method 98.3 F 106 H 18 150/94 H 100 Room Air 09/19/24 13:14 09/19/24 13:14 09/19/24 13:14 09/19/24 13:14 09/19/24 13:14 09/19/24 13:14 Narrative Exam out of room in clinical laboratory technician per staff. unable to see today. Objective - Internal Medicine Labs 09/19/24 05:04 09/19/24 05:04 Labs: Laboratory Results - last 24 hr 09/18/24 09/19/24 13:10 05:04 WBC 13.1 H RBC 3.51 L Hgb 11.3 L Hct 33.4 L MCV 95 MCH 32.2 MCHC 33.8 RDW Std Deviation 55.4 H Plt Count 282 Neut % (Auto) 71 Lymph % (Auto) 20 Dundy % (Auto) 6 Eos % (Auto) 1 Baso % (Auto) 0 Neut # (Auto) 9.3 H Lymph # (Auto) 2.6 Dundy # (Auto) 0.8 Eos # (Auto) 0.1 Baso # (Auto) 0.1 Immature Gran # (Auto) 0.09 H Absolute Nucleated RBC 0.00 Immature Gran % 1 H Nucleated RBC % 0 PT 16.2 H INR 1.5 H APTT 30.4 Sodium 133 L Potassium 3.1 L Chloride 104 Carbon Dioxide 20.0 Anion Gap 9 BUN 8 L Creatinine 0.5 L Estim Creat Clear Calc 241.7 eGFR > 60 BUN/Creatinine Ratio 16 Glucose 78 Calculated Osmolality 263 L Calcium 7.5 L Corrected Calcium 8.5 Phosphorus 3.5 Magnesium 1.7 Total Bilirubin 11.5 H D AST 144 H ALT 91 H Alkaline Phosphatase 213 H Total Protein 7.1 Albumin 2.7 L Globulin 4.4 H Albumin/Globulin Ratio 0.6 L Vancomycin Trough 15.1 H Assessment & Plan A&P Narrative cirrhosis with elevated bili and inr, but normal plts. neg hep panel and hiv tests noted. abd pain. possible pneumonia pos bc 09/15/24 coag neg in both bc with neg nasal mrsa and overall picture, narrowed yest. to zosyn alone but vanco added back today but one of the bc is a coag neg staph and the other is listed as the same. looks like a possible contaminant to me still. I will see Tuesday am if he is in room at that time. Time Spent With Patient Time: Total time spent is greater than 50% in coordination of care (as documented) at patient's floor/unit and/or counseling patient:
[2024-09-19] MEDS: LIDOCAINE INJ PF 1% 30 ML VIAL 4 ML INFL (13:54)
[2024-09-19] MEDS: HEPARIN SOD LOCK SYR 100 UNIT/ML 500 UNIT STFIELD (13:54)
--- NOTE | 2024-09-19 14:35 | PC.NURSE ---
Report given to MARSHA Anguiano. Patient transferred to med surg post PICC line insertion. Dressing clean, dry, and intact. No signs of bleeding.
[2024-09-19] MEDS: VANCOMYCIN/WATER 1250 MG IVPB 250 ML 120 MG IV ×2 (16:02→21:00)
[2024-09-19] MEDS: predniSONE 5 MG TABLET 15 MG PO (20:54)
[2024-09-20] VITALS (11 sets, daily range): BP systolic 123–150; BP diastolic 67–95; PULSE 65–117; RESP 17–20; TEMP 36–37.2; O2SAT 93–98
[2024-09-20 06:42] LABS: Alanine Aminotransferase 81 U/L (10-49); Albumin, Serum 2.5 gm/dL (3.5-5.0); Albumin/Globulin Ratio 0.6 (1.2-2.2); Alkaline Phosphatase 198 U/L (46-116); Anion Gap 9 (7-16); Aspartate Amino Transferase 118 U/L (0-34); BUN/Creatinine Ratio 18 Ratio (12-20); Bilirubin,Total 9.3 mg/dL (0.3-1.2); Blood Urea Nitrogen 9 mg/dL (9-23); Calcium 7.5 mg/dL (8.3-10.6); Calcium (Corrected) 8.7 mg/dL (8.5-10.1); Carbon Dioxide 20.5 mMol/L (20.0-31.0); Chloride 104 mMol/L (98-107); Creatinine (Component) 0.5 mg/dL (0.6-1.3); Estimated Creatinine Clearance 241.7 mL/min (>60); Glucose 90 mg/dL (74-106); Magnesium 1.9 mg/dL (1.6-2.6); Osmolality,Calculated 265 (275-295); Phosphorous 3.1 mg/dL (2.4-5.1); Potassium 3.3 mMol/L (3.4-5.1); Sodium 133 mMol/L (136-145); Total Protein 6.5 gm/dL (5.7-8.2); Vancomycin,Trough 12.2 mcg/mL (5.0-10.0); eGFR > 60 See Note
[2024-09-20] MEDS: VANCOMYCIN/WATER 1250 MG IVPB 250 ML 120 MG IV ×3 (06:42→21:48)
[2024-09-20 08:58] LABS: Basophils % (Auto) 0 % (0-2.5); Eosinophils % (Auto) 0 % (0-10); Hematocrit 30.9 % (41.0-53.0); Hemoglobin 10.4 g/dL (13.5-16.0); Immature Granulocytes % (Auto) 1 % (0-0); Immature Granulocytes Auto 0.08 Thou/mm3 (0.00-0.00); Lymphocytes # (Auto) 2.5 Thou/mm3 (1.0-4.8); Lymphocytes % (Auto) 19 % (10-50); Mean Corpuscular HGB Conc 33.7 g/dl (31.0-37.0); Mean Corpuscular Hemoglobin 32.1 pg (25.0-35.0); Mean Corpuscular Volume 95 fL (80-100); Monocytes # (Auto) 0.6 Thou/mm3 (0.0-0.8); Monocytes % (Auto) 5 % (0-12); Neutrophils # (Auto) 9.7 Thou/mm3 (1.8-7.7); Neutrophils % (Auto) 75 % (37-80); Nucleated Red Blood Cell % 0 /100 WBC (0); Platelet Count 264 Thou/mm3 (140-440); RDW Standard Deviation 54.8 fL (35.1-43.9); Red Blood Count 3.24 Miln/mm3 (4.50-5.90)
[2024-09-20] MEDS: Furosemide 40 MG TABLET PO (09:17)
[2024-09-20] MEDS: FOLIC ACID 1 MG TABLET PO (09:18)
[2024-09-20] MEDS: predniSONE 5 MG TABLET 15 MG PO ×2 (09:18→21:47)
[2024-09-20] MEDS: THIAMINE 100 MG TABLET PO (09:18)
[2024-09-20] MEDS: SPIRONOLACTONE 25 MG TABLET PO ×2 (09:18→21:47)
[2024-09-20] MEDS: PANTOPRAZOLE INJ 40 MG VIAL IVP (09:19)
[2024-09-20] MEDS: cefTRIAXone/D5w 2gm 2 GM/50 ML BAG IV (09:19)
[2024-09-20] MEDS: POTASSIUM CHLORIDE 20 mEq TABCR 40 MEQ PO (09:23)
[2024-09-20] MEDS: POTASSIUM CHLORIDE 10% 20 MEQ/15 ML UDC 40 MEQ PO (09:23)
[2024-09-20] MEDS: Magnesium Sulfate 1 gm Ivpb 1 GM/100 ML BAG IV (09:24)
--- NOTE | 2024-09-20 11:56 | EKG_ITS ---
[facility] Test Date: 2024-09-20 Pat Name: ANA RICHARDSON [facility] Cold Strip Feeder: KENDRA : 1985 Requested By: Toan Baugh Order Number: [id number] Reading MD: Toan Baugh Measurements Intervals [place] Rate: 103 P: 13 [place]: 128 QRS: 6 QRSD: 91 T: 1 QT: 339 QTc: 444 Interpretive Statements SINUS TACHYCARDIA POSSIBLE ANTERIOR MYOCARDIAL INFARCTION , OF INDETERMINATE AGE [30 ms Q WAVE IN V3/V4, OR R < 0.2 mV IN V4] INFERIOR MYOCARDIAL INFARCTION , PROBABLY OLD [40+ ms Q WAVE AND/OR ST/T ABNORMALITY IN II/aVF] No previous ECG available for comparison /[id number]/[email or web address]/[id number]
--- NOTE | 2024-09-20 11:59 | PC.SS ---
Addendum entered by Augustina Rincon 09/20/24 12:21: SS has sent inquiry to SNF within 70 mile radius from [facility] using [facility]. Pt is requiring IV antibiotic, Vanco 3 times a day until Oct 02, 2024. SS received call from Serena, patient's health insurance [phone]. Serena is aware pt is requiring IV antibiotic 3 time day and will possibly will be barrier for d/c. Original Note: SS spoke to Crissy at [facility] who explained they are unable to accommodate IV antibiotic 3 times a day. SS was informed by physician residents pt is requiring IV Vanko 3 X day, blood testing daily, and possibly adjust Vanco dose according to blood test.
--- NOTE | 2024-09-20 14:31 | PC.CM ---
I spoke to Socorro with [facility] and I her know I have a patient who will need IV vanco 3 times a day and our doctors want a peak and trough done daily. I asked if they would be able to accommodate the daily draws. Socorro states they are not able to accommodate daily draws. I informed Augustina FREIRE.
--- NOTE | 2024-09-20 14:38 | ESPR_ITS ---
<Statement entered by Ned Mukherjee MD - 09/20/24 20:34> Patient pending authorization to SNF placement where he will complete his Vancomycine antibiotics through PICC line until 10/02/24. I discussed with and supervised the software intern physician involved in the care of this patient. Patient assessment and plan was discussed with entire medicine team, including my attending. I agree with the assessment and plan as documented by software intern doctor. Patient care was discussed with my attending physician Dr. Ran Mukherjee, PGY-2 Documentation for date of: 09/20/24 Subjective Subjective Interval history: Patient was seen and examined at bedside this AM. No acute exents overnight. Patient tolerating diet, adequate urine output and mentation is at baseline. Patient complained of lightheadedness and anxiety due to having bills to pay. 09/15/2024 blood culture grew staph hemolyticus sensitive to vancomycin. 09/17/2024 blood cultures NBG x 48 hours Currently on day 4 of IV vancomycin Transthoracic echocardiogram completed on 10/04/2024: No clear evidence of vegetation on the valves. Consider GABRIELLE if clinical suspicion is high. Normal LV size, wall thickness and function. Estimated EF 55 to 60%. Patient currently pending insurance authorization for discharge to SNF for 2 weeks of IV vancomycin with daily vancomycin trough to complete on 10/02/2024. Exam Vital Signs Temp Pulse Resp BP Pulse Ox O2 Del Method 96.8 F 100 17 130/84 95 Room Air 09/20/24 12:00 09/20/24 12:00 09/20/24 12:00 09/20/24 12:00 09/20/24 12:00 09/20/24 12:00 Narrative Exam Constitutional Alert, oriented x 3 and comfortable. Middle-age male, obese, generalized jaundice, scleral icterus. HEENT Vision grossly intact. Patent nares. Trachea midline Respiratory Chest normal on inspection and clear auscultation bilaterally Cardiovascular S1 and S2 audible, RRR. No murmurs carotid bruit. No gross JVD. Abdominal Distended, abdominal striae, nontender to palpation. Bowel sounds present Genitourinary No bladder tenderness, no flank pain. Normal to palpation Musculoskeletal Extremities tone within normal limits. No lower extremity edema Neurological CN II - XII grossly intact. Extremity motor and sensation grossly intact. Skin Warm, dry and intact. PICC line noted Left brachial area, exit site clean Psychiatric Patient has good affect, is cooperative Objective Labs 09/20/24 04:25 09/20/24 04:25 Labs: Laboratory Results - last 24 hr 09/20/24 04:25 WBC 13.0 H RBC 3.24 L Hgb 10.4 L Hct 30.9 L MCV 95 MCH 32.1 MCHC 33.7 RDW Std Deviation 54.8 H Plt Count 264 Neut % (Auto) 75 Lymph % (Auto) 19 Curry % (Auto) 5 Eos % (Auto) 0 Baso % (Auto) 0 Neut # (Auto) 9.7 H Lymph # (Auto) 2.5 Curry # (Auto) 0.6 Eos # (Auto) 0.0 Baso # (Auto) 0.0 Immature Gran # (Auto) 0.08 H Absolute Nucleated RBC 0.00 Immature Gran % 1 H Nucleated RBC % 0 Sodium 133 L Potassium 3.3 L Chloride 104 Carbon Dioxide 20.5 Anion Gap 9 BUN 9 Creatinine 0.5 L Estim Creat Clear Calc 241.7 eGFR > 60 BUN/Creatinine Ratio 18 Glucose 90 Calculated Osmolality 265 L Calcium 7.5 L Corrected Calcium 8.7 Phosphorus 3.1 Magnesium 1.9 Total Bilirubin 9.3 H D AST 118 H ALT 81 H Alkaline Phosphatase 198 H Total Protein 6.5 Albumin 2.5 L Globulin 4.0 H Albumin/Globulin Ratio 0.6 L Vancomycin Trough 12.2 H Quality Measures Quality Measures none Assessment & Plan Assessment Current Active Medications: Generic Name Dose Route Start Last Admin Trade Name Freq PRN Reason Stop Dose Admin Acetaminophen 650 mg 09/15/24 15:34 Acetaminophen 325 Mg Tablet PO 10/15/24 15:33 Q6H PRN PAIN OR FEVER > 101 Folic Acid 1 mg 09/16/24 09:00 09/20/24 09:18 Folic Acid 1 Mg Tablet PO 10/16/24 08:59 1 mg QDAY EFE Administration Furosemide 40 mg 09/18/24 09:00 09/20/24 09:17 Furosemide 40 Mg Tablet PO 10/18/24 08:59 40 mg QDAY EFE Administration Ceftriaxone Sodium/Dextrose 2 gm in 50 mls @ 100 mls/hr 09/18/24 09:00 09/20/24 09:19 Rocephin/D5w 2gm IV 09/25/24 08:59 100 mls/hr QDAY EFE Administration Vancomycin HCl 250 mls @ 120 mls/hr 09/19/24 14:00 09/20/24 13:52 Vancomycin/Water 1250 Mg Ivpb IV 09/26/24 13:59 120 mls/hr Q8HR EFE Administration Protocol Lactulose 10 gm 09/18/24 10:13 Lactulose Syrup 20 Gm/30 Ml Udc PO 10/18/24 20:59 BID PRN For 3-4 Bowel movements a day Protocol Ondansetron HCl 4 mg 09/15/24 15:34 Ondansetron Inj 2 Mg/Ml Inj 2 Ml IV 10/15/24 15:33 Q6H PRN NAUSEA OR VOMITING Protocol Pantoprazole Sodium 40 mg 09/16/24 09:00 09/20/24 09:19 Pantoprazole Inj 40 Mg Vial IVP 10/16/24 08:59 40 mg QDAY EFE Administration Pharmacy Consult 1 each 09/20/24 07:34 Vancomycin Pharmacy To Dose 1 Each Each IV 10/19/24 13:29 QDAY PRN PROTOCOL Prednisone 15 mg 09/19/24 21:00 09/20/24 09:18 Prednisone 5 Mg Tablet PO 09/26/24 14:25 15 mg BID EFE Administration Sennosides 2 tab 09/15/24 15:34 Senna Tablet PO 10/15/24 15:33 BID PRN CONSTIPATION Protocol Spironolactone 25 mg 09/15/24 21:00 09/20/24 09:18 Spironolactone 25 Mg Tablet PO 10/15/24 20:59 25 mg BID EFE Administration Thiamine HCl 100 mg 09/16/24 09:00 09/20/24 09:18 Thiamine 100 Mg Tablet PO 10/16/24 08:59 100 mg QDAY EFE Administration Plan Patient is a 39-year-old male with past medical history of undiagnosed hypertension, decompensated cirrhosis, alcohol abuse disorder recently discharged from hospital following episode of alcoholic hepatitis, who presented to the ER complaining of abdominal distention. Reported having acute abdominal swelling for the past 4 days, patient's friends and relatives noticed the swelling and urged him to get evaluated. At the time of presentation patient is lying comfortably in bed reporting some mild tenderness around the umbilicus, abdominal distention is present. Patient reported being compliant with prescribed medications, reported being abstinent from alcohol for the last 1 month and a half. Patient denied having any fever, dark stools or hematemesis, or confusion, denied having any chest pain or shortness of breath at this moment. ER physician had already evaluated the patient and attempted to do paracentesis to send for analysis which was unsuccessful as bowel loops overlying pockets of fluid. We admitted the patient to the medical floor due to concern for acute onset ascites, possible SBP, need for IV antibiotics and US guided paracentesis. 1. Staphylococcus haemolyticus bacteremia 09/15/2024 blood culture grew staph hemolyticus sensitive to vancomycin. 09/17/2024 blood cultures NBG x 48 hours Currently on day 4 of IV vancomycin Transthoracic echocardiogram completed on 10/04/2024: No clear evidence of vegetation on the valves. Consider GABRIELLE if clinical suspicion is high. Normal LV size, wall thickness and function. Estimated EF 55 to 60%. Patient currently pending insurance authorization for discharge to SNF for 2 weeks of IV vancomycin with daily vancomycin trough to complete on 10/02/2024. Plan: ? Continue vancomycin IV for Staph Haemolyticus on [09/17/24 - 10/02/24] ? Patient will need a usp facility that is able to administer IV antibiotics 3 times daily as well as daily vancomycin troughs to adjust vancomycin dose as necessary. ? Infectious disease, Dr Anderson consulted. Appreciate recommendations 2. Decompensated alcoholic cirrhosis with ascites, portal hypertension and coagulopathy 3. Likely spontaneous bacterial peritonitis?resolving DDx?SBP vs portal vein thrombosis vs hepatic vein thrombosis vs CHF In the ED, patient presented with stable vitals, ultrasound-guided paracentesis was attempted by ER physician, which was unsuccessful due to bowel loops surrounding pocket of fluid, initial imaging showed concern for acute calculus cholecystitis. MRCP was done which was negative for cholecystitis or CBD dilation. Portal vein showed normal hepatopetal flow on gallbladder ultrasound. Given IV ceftriaxone x 1 due to concern for SBP in the emergency room. Peritoneal fluid results may be skewed following antibiotic therapy, will get SAAG, ratio might still be helpful. Maddrey's discriminant function score more than 32, patient is still a candidate for steroids, despite having completed steroid taper following discharge from prior hospitalization. Ultrasound showed Normal hepatopedal flow in portal vein. [09/17/2024] Diagnostic/therapeutic paracentesis drained 3600 cc fluid. WBC count out of SBP range SAAG 1.4 : Portal hypertension likely because of ascites Plan: ? Continue ceftriaxone 2 g IV daily for SBP treatment to complete on 09/21/2024 ? Lactulose as needed, titrate to achieve 2?3 bowel movements per day. ? Continue spironolactone 25 Mg p.o. twice daily for ascites ? Continue Lasix 40 Mg p.o. daily for ascites ? GI prophylaxis with Protonix IV 40 Mg daily ? Discontinued prednisone 40 mg daily for elevated Maddrey score as patient has had more than 30-day treatment. ? Started prednisone taper of prednisone 15 Mg p.o. twice daily for 1 week and to decrease by 5 Mg every week 4. Acute cholecystitis?ruled out Patient had negative physical exam for right upper quadrant abdominal tenderness, initial concern for cholecystitis on CT, MRCP was done which ruled out CBD dilation or cholecystitis. 5. History of alcohol abuse disorder Patient reported abstinence from alcohol for the last 1-1/2 months, will continue to monitor, will order symptom triggered CIWA if patient shows signs of withdrawal. Plan: ? Continue p.o. thiamine and folic acid 6. Coagulopathy Sequelae of decompensated cirrhosis, given vitamin K subcu x 1 Health maintenance: Disposition: IV antibiotics for Bacteremia. Pending insurance authorization for discharge to SNF. Diet: 2G sodium restricted Lines: pIVs GI Prophylaxis: Pantoprazole IV Thrombo Prophylaxis: SCDs Code status: FULL CODE Plan of care discussed with Attending Dr. Tong and PGY2 Dr. Lonny Baugh MD PGY 1 Attending Provider Attestation/Addendum I have discussed and was present for the essential components of the history, physical examination, diagnosis, and treatment plan with the resident. I agree with the patient's care as documented by the resident and amended herein by me. Kermit Tong, DO. Patient seen and evaluated this AM. Vital signs stable, patient afebrile overnight, patient presently being treated for alcoholic hepatitis, decompensated liver cirrhosis and bacteremia with coagulase-negative staph, specifically Staphylococcus hemolyticus which was present in both sets of initial blood cultures. Vital signs stable, patient afebrile overnight, WBC 13, relatively unchanged, hemoglobin stable at 10, potassium 3.3 and total bilirubin 9.3. As stated above, blood cultures on 09/15 demonstrating Staphylococcus hemolyticus, resistant to numerous antimicrobials however sensitive to vancomycin which the patient is on. Repeat cultures on 09/17 were negative. Peritoneal fluid cultures also pending. Infectious disease believes this may be a contamination however will err on the side of caution and continue vancomycin for now considering the organism was in all bottles.. Echo was ordered, no vegetations seen. Will continue prednisone taper for alcoholic hepatitis. Patient will be discharged to SNF likely 09/21 however pending insurance authorization. Social work was able to find a SNF that could accommodate vancomycin and troughs we will continue to monitor closely when the patient is here. Although this document has been carefully reviewed, there may still be some phonetic and other typographical errors. These errors are purely grammatical due to imperfections in the software program and should not be construed in any way to compromise the substance of the patient's medical care during this visit.
--- NOTE | 2024-09-20 15:37 | PC.SS ---
SS spoke to Valerie from [facility] who states they can accept pt. Valerie will start insurance authorization. SS has sent PASRR, d/c orders, and d/c summary to [facility] using [employer]. SS met with pt and informed him [facility] is the only accepting facility at this time. Pt is agreeable to [facility]. Insurance authorization is pending. SS provided Valerie with Serena's phone# from patient's health insurance. Per Valerie, she has been attempting to contact Serena but has been unsuccessful.
[2024-09-21] VITALS (9 sets, daily range): BP systolic 123–149; BP diastolic 82–94; PULSE 79–128; RESP 17–21; TEMP 36.1–36.9; O2SAT 95–98
[2024-09-21] MEDS: VANCOMYCIN/WATER 1250 MG IVPB 250 ML 120 MG IV (05:16)
[2024-09-21 05:43] LABS: Basophils % (Auto) 0 % (0-2.5); Eosinophils # (Auto) 0.1 Thou/mm3 (0.0-0.5); Eosinophils % (Auto) 1 % (0-10); Hematocrit 29.3 % (41.0-53.0); Hemoglobin 9.8 g/dL (13.5-16.0); Immature Granulocytes % (Auto) 1 % (0-0); Immature Granulocytes Auto 0.08 Thou/mm3 (0.00-0.00); Lymphocytes # (Auto) 2.3 Thou/mm3 (1.0-4.8); Lymphocytes % (Auto) 19 % (10-50); Mean Corpuscular HGB Conc 33.4 g/dl (31.0-37.0); Mean Corpuscular Hemoglobin 31.8 pg (25.0-35.0); Mean Corpuscular Volume 95 fL (80-100); Monocytes # (Auto) 0.7 Thou/mm3 (0.0-0.8); Monocytes % (Auto) 6 % (0-12); Neutrophils % (Auto) 74 % (37-80); Nucleated Red Blood Cell % 0 /100 WBC (0); Platelet Count 260 Thou/mm3 (140-440); RDW Standard Deviation 53.3 fL (35.1-43.9); Red Blood Count 3.08 Miln/mm3 (4.50-5.90); White Blood Count 12.1 Thou/mm3 (3.8-10.6)
[2024-09-21 06:38] LABS: Alanine Aminotransferase 79 U/L (10-49); Albumin, Serum 2.6 gm/dL (3.5-5.0); Albumin/Globulin Ratio 0.7 (1.2-2.2); Alkaline Phosphatase 203 U/L (46-116); Anion Gap 9 (7-16); Aspartate Amino Transferase 120 U/L (0-34); BUN/Creatinine Ratio 22 Ratio (12-20); Bilirubin,Total 8.8 mg/dL (0.3-1.2); Blood Urea Nitrogen 11 mg/dL (9-23); Calcium 7.5 mg/dL (8.3-10.6); Calcium (Corrected) 8.6 mg/dL (8.5-10.1); Carbon Dioxide 19.7 mMol/L (20.0-31.0); Chloride 106 mMol/L (98-107); Creatinine (Component) 0.5 mg/dL (0.6-1.3); Estimated Creatinine Clearance 241.7 mL/min (>60); Globulin 3.9 gm/dL (2.3-3.5); Glucose 89 mg/dL (74-106); Magnesium 1.9 mg/dL (1.6-2.6); Osmolality,Calculated 268 (275-295); Phosphorous 3.3 mg/dL (2.4-5.1); Potassium 3.4 mMol/L (3.4-5.1); Sodium 135 mMol/L (136-145); Total Protein 6.5 gm/dL (5.7-8.2); eGFR > 60 See Note
[2024-09-21] MEDS: Furosemide 40 MG TABLET PO (08:53)
[2024-09-21] MEDS: POTASSIUM CHLORIDE 10% 20 MEQ/15 ML UDC PO (08:53)
[2024-09-21] MEDS: predniSONE 5 MG TABLET 15 MG PO (08:53)
[2024-09-21] MEDS: cefTRIAXone/D5w 2gm 2 GM/50 ML BAG IV (08:53)
[2024-09-21] MEDS: FOLIC ACID 1 MG TABLET PO (08:54)
[2024-09-21] MEDS: THIAMINE 100 MG TABLET PO (08:54)
[2024-09-21] MEDS: SPIRONOLACTONE 25 MG TABLET PO (08:54)
[2024-09-21] MEDS: PANTOPRAZOLE INJ 40 MG VIAL IVP (08:54)
--- NOTE | 2024-09-21 09:35 | PC.SS ---
Follow up note: Pt is requiring IV Vanco 3 times day until 2024. Waiting for insurance authorization. [facility], [facility] initiated insurance authorization 09-20-24. Insurance authorization is pending. SS provided pt with [employer] with [facility]'s address. Pt is still agreeable to go to SNF
--- NOTE | 2024-09-21 09:37 | ESPR_ITS ---
Subjective Subjective Interval history: changed to all po regimen. stopped the steroids and iv ppi and changed the vanco/rocephin to po levaquin. if you really want to treat the coag neg staph, then that is your choice. it seems like a contaminant to me. Exam Vital Signs Temp Pulse Resp BP Pulse Ox O2 Del Method 98.5 F 79 21 H 147/93 H 95 Room Air 09/21/24 04:00 09/21/24 08:54 09/21/24 04:00 09/21/24 08:54 09/21/24 04:00 09/21/24 04:00 Narrative Exam benign exam. recent paracentesis of 4 liters per pt Objective - Internal Medicine Labs 09/21/24 04:54 09/21/24 04:54 Labs: Laboratory Results - last 24 hr 09/21/24 04:54 WBC 12.1 H RBC 3.08 L Hgb 9.8 L Hct 29.3 L MCV 95 MCH 31.8 MCHC 33.4 RDW Std Deviation 53.3 H Plt Count 260 Neut % (Auto) 74 Lymph % (Auto) 19 Sutton % (Auto) 6 Eos % (Auto) 1 Baso % (Auto) 0 Neut # (Auto) 9.0 H Lymph # (Auto) 2.3 Sutton # (Auto) 0.7 Eos # (Auto) 0.1 Baso # (Auto) 0.0 Immature Gran # (Auto) 0.08 H Absolute Nucleated RBC 0.00 Immature Gran % 1 H Nucleated RBC % 0 Sodium 135 L Potassium 3.4 Chloride 106 Carbon Dioxide 19.7 L Anion Gap 9 BUN 11 Creatinine 0.5 L Estim Creat Clear Calc 241.7 eGFR > 60 BUN/Creatinine Ratio 22 H Glucose 89 Calculated Osmolality 268 L Calcium 7.5 L Corrected Calcium 8.6 Phosphorus 3.3 Magnesium 1.9 Total Bilirubin 8.8 H D AST 120 H ALT 79 H Alkaline Phosphatase 203 H Total Protein 6.5 Albumin 2.6 L Globulin 3.9 H Albumin/Globulin Ratio 0.7 L Assessment & Plan A&P Narrative cirrhosis with elevated bili and inr, but normal plts. neg hep panel and hiv tests noted. abd pain which pt denies btw possible pneumonia pos bc 09/15/24 coag neg in both bc listed as exactly 5 mins apart. odd. with neg nasal mrsa and overall picture, narrowed pm wed.. to zosyn alone but claus added back subsequently but one of the bc is a coag neg harinder and the other is listed as the same. looks like a possible contaminant to me still. I will see Tuesday am if he is still in house on Tuesday. I am ok if he goes home on po rx. echo notably neg. . Time Spent With Patient Time: Total time spent is greater than 50% in coordination of care (as documented) at patient's floor/unit and/or counseling patient:
--- NOTE | 2024-09-21 09:38 | PC.SS ---
SS spoke to pt about consuming alcohol. Pt states he does not struggle with alcoholism. Pt states he last drank alcohol 07-23-24 and denied having issues with consuming alcohol. Pt was receptive to [employer].
--- NOTE | 2024-09-21 11:45 | ESDS_ITS ---
<Statement entered by Michoacano Alvarado MD - 09/28/24 13:44> I reviewed above note and agree with findings and plans. I have also personally examined the patient with medicine team and went over assessment and plan with medical team including manager of international and resident physician. <Statement entered by Ned Mukherjee MD - 09/22/24 17:31> I discussed with and supervised the manager of international physician involved in the care of this patient. Patient assessment and plan was discussed with entire medicine team, including my attending. I agree with the assessment and plan as documented by manager of international doctor. Patient care was discussed with my attending physician Dr. Jenny Mukherjee, PGY-2 Planned Discharge Date 09/21/24 DS: Providers Provider Date of admission: 09/15/24 15:34 Primary care physician: Evelia Rodgers MD Admitting Provider: Stan Maxwell MD Attending Provider on Admission: Jonh Tong DO Consults: 09/15/24 20:09 Health Equity Referral - Knowledge Deficit Routine Comment: Positive screening for knowledge deficit needs. Health [facility]ity Referral - Nutrition Routine Comment: Positive screening for nutrition needs. 09/18/24 10:14 Consult to Infectious Diseases Routine Comment: Consulting Provider: Oscar Anderson Attending Provider on DC: Michoacano Alvarado MD Discharging Provider: Toan Baugh MD DS: Diagnosis Problem List Completed Was Problem List Reviewed/Reconciled?: Yes Hospital Course Hospital Course Hospital course: Patient is a 39-year-old male with past medical history of undiagnosed hypertension, decompensated cirrhosis, alcohol abuse disorder recently discharged from hospital following episode of alcoholic hepatitis, who presented to the ER complaining of abdominal distention. Reported having acute abdominal swelling for the past 4 days. . Patient reported being compliant with prescribed medications, reported being abstinent from alcohol for the last 1 month and a half. Patient denied having any fever, dark stools or hematemesis, or confusion, denied having any chest pain or shortness of breath at this moment. ER physician had already evaluated the patient and attempted to do paracentesis to send for analysis which was unsuccessful as bowel loops overlying pockets of fluid. We admitted the patient to the medical floor due to concern for acute onset ascites, possible SBP, need for IV antibiotics and US guided paracentesis. With regard to patient's decompensated alcoholic cirrhosis with ascites, portal hypertension and coagulopathy patient was treated with diagnostic/therapeutic paracentesis which drained 3600 cc of fluid. PMNs were out of range for around SBP but due to high suspicion patient was treated with ceftriaxone 2 g IV daily. Patient's home medication I am spironolactone 25 Mg p.o. twice daily, Lasix 40 Mg p.o. daily, lactulose and prednisone 40 Mg daily. Upon discharge will start patient on prednisone taper as he has been on high-dose prednisone for more than 30 days. For patient's Staphylococcus hemolyticus bacteremia he was treated with vancomycin 1.25 g IV 3 times daily baseline blood culture sensitivity. Transthoracic echocardiogram was done which was negative for endocarditis. Follow-up blood cultures were negative x 48 hours on . Patient will be discharged to SNF for completion of IV antibiotics via PICC line, last day of treatment on 10/02/2024. All patient's labs are now returning to his baseline. Patient is now clinically stable and fit for discharge to home. Discharge diagnoses: 1. Staphylococcus hemolyticus bacteremia?resolving 2. Decompensated alcoholic cirrhosis with ascites, portal hypertension and coagulopathy 3. Likely spontaneous bacterial peritonitis?resolving 4. Acute cholecystitis/ruled out 5. History of alcohol abuse disorder Discharge plan: - You have been started on an antibiotic Levoquin. Take 1 tablet once a day for 5 more days. - You have been started on a medication propanolol for prevention of bleeding. Take 1 tablet 3 times a day. - We have started to decrease the dose of your prednisone. Take 4 tablets twice a day for 7 days, then 3 tablets twice a day for 7 days, then 2 tablets twice a day for 7 days, then 2 tablets once a day for 7 days, then 1 tablet once a day for 7 days and then stop. - You have been started on an antibiotic recommend continuing alcohol abstinence, recommend following prednisone taper for treatment of alcoholic hepatitis. - Continue taking the rest of your home medications as before ? Take lactulose 10 g p.o. daily to achieve minimum 2?3 bowel movements per day. You may increase your dose to twice or 3 times daily if necessary. - Monitor your weight daily. If it increases by greater than 5-10 pounds in 1 day call your PCP for an appointment you may need fluid drained from your abdomen again. - Recommend following up with your primary physician within 5 days of discharge from hospital to discuss recent hospitalization. If you cannot get an appointment with your primary doctor in time you can call our [facility] at [phone] to make an appointment. - Please follow-up with medical recruiter Dr. Valderrama within 2 weeks of discharge from hospital. - If you experience any new, worsening or persistent symptoms either call your PCP, dial 911 or present to the emergency department. We are grateful to be able to participate in Mr. Cuadra's care. We wish him the best. Plan of care discussed with Attending Dr. Alvarado and PGY2 Dr. Lonny Baugh MD PGY 1 Time Spent with Patient Time attestation: Total time spent providing and/or coordinating discharge services: Time spent: Greater than 30 minutes (37) Quality: Stroke Pt Provided Written Stroke Discharge Instructions: No Exam Vital Signs Temp Pulse Resp BP Pulse Ox O2 Del Method 97 F 67 18 135/80 H 95 Room Air 09/20/24 07:47 09/20/24 09:18 09/20/24 07:47 09/20/24 09:18 09/20/24 07:47 09/20/24 07:47 Narrative Exam Constitutional Alert, oriented x 3 and comfortable. Middle-age male, obese, generalized jaundice, scleral icterus. HEENT Vision grossly intact. Patent nares. Trachea midline Respiratory Chest normal on inspection and clear auscultation bilaterally Cardiovascular S1 and S2 audible, RRR. No murmurs carotid bruit. No gross JVD. Abdominal Distended, abdominal striae, nontender to palpation. Bowel sounds present Genitourinary No bladder tenderness, no flank pain. Normal to palpation Musculoskeletal Extremities tone within normal limits. No lower extremity edema Neurological CN II - XII grossly intact. Extremity motor and sensation grossly intact. Skin Warm, dry and intact. PICC line noted Left brachial area, exit site clean Psychiatric Patient has good affect, is cooperative Discharge Plan Plan Patient Disposition: HOME (Self Care) Care Plan Goals: - You have been started on an antibiotic Levoquin. Take 1 tablet once a day for 5 more days. - You have been started on a medication propanolol for prevention of bleeding. Take 1 tablet 3 times a day - We have started to decrease the dose of your prednisone. Take 4 tablets twice a day for 7 days, then 3 tablets twice a day for 7 days, then 2 tablets twice a day for 7 days, then 2 tablets once a day for 7 days, then 1 tablet once a day for 7 days and then stop. - You have been started on an antibiotic recommend continuing alcohol abstinence, recommend following prednisone taper for treatment of alcoholic hepatitis. - Continue taking the rest of your home medications as before ? Take lactulose 10 g p.o. daily to achieve minimum 2?3 bowel movements per day. You may increase your dose to twice or 3 times daily if necessary. - Monitor your weight daily. If it increases by greater than 5-10 pounds in 1 day call your PCP for an appointment you may need fluid drained from your abdomen again. - Recommend following up with your primary physician within 5 days of discharge from hospital to discuss recent hospitalization. If you cannot get an appointment with your primary doctor in time you can call our [facility] at [phone] to make an appointment. - Please follow-up with medical recruiter Dr. Valderrama within 2 weeks of discharge from hospital. - If you experience any new, worsening or persistent symptoms either call your PCP, dial 911 or present to the emergency department. Prescriptions/Referrals Prescriptions/Med Rec: New propranolol 10 mg tablet 10 mg PO TID Qty: 90 0RF levofloxacin 750 mg tablet 750 mg PO QDAY Qty: 5 0RF Continued prednisone 5 mg tablet See Rx Instructions .ROUTE .COMPLEX Qty: 147 0RF Taper: Prednisone Taper 20 mg TWICE A DAY for 7 Days and 0 Hour 15 mg TWICE A DAY for 7 Days and 0 Hour 10 mg TWICE A DAY for 7 Days and 0 Hour 10 mg DAILY for 7 Days 5 mg DAILY for 7 Days Rx Instructions: See Taper orally pantoprazole [Protonix] 40 mg tablet,delayed release (DR/EC) 40 mg PO QDAY Qty: 35 0RF furosemide 20 mg tablet 20 mg PO QDAY Qty: 30 0RF spironolactone [Aldactone] 50 mg tablet 50 mg PO QDAY Qty: 30 0RF lactulose 10 gram/15 mL (15 mL) solution 10 g PO QDAY Qty: 750 0RF Referrals: Harmony Valderrama MD [Physician] - Evelia Rodgers MD [Primary Care Provider] - Patient/Caregiver Discharge Instructions Education Materials: Paracentesis, Discharge Instructions for ..., ED Ascites Print Language: Amharic Stand Alone Forms: Annie Award Info., Patient Portal Info Letter Discharge Order Discharge Orders: Discharge (Routine); Ordered 09/21/24 Ordered By: Toan Baugh Quality Discharge Quality Measures none
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
--- NOTE | 2024-09-21 13:09 | PC.NURSE ---
Received Hand off report from Heidy LARSON. Went in to see patient. Patient fully dressed and says he wants to go home. Pt stated that the doctor said he doesn't need to go to a facility and that he can go home so he wants to go home. I contacted the doctor and informed him of the patient's concern. will come see patient in 30 minutes. Also, pt had an order of lactulose due at 10:15. medication was not given at that time. Contacted to ask if he still wants me to give at this time and he says yes to give.
[2024-09-21] MEDS: LACTULOSE SYRUP 20 GM/30 ML UDC 10 GM PO (13:27)
--- NOTE | 2024-09-21 13:41 | PC.SS ---
SS received call from Valerie at [facility] who explained she has attempted to contact Dori from patient's health insurance but was unsuccessful. Valerie left voicemail and has faxed Dori patient's dc orders. At 12:29pm SS called Dori at [phone] and left voicemail with SS contact information.
--- NOTE | 2024-09-21 15:38 | PC.SS ---
SS received call from Valerie at [facility] who states she has received insurance authorization and is requesting updated d/c orders to be sent. SS met with physician team who explained pt is requesting to return home with oral antibiotic which was recommended by Dr. Vergara.
[2024-09-21] MEDS: PROPRANOLOL 10 MG TABLET PO (17:03)
== END 2024-09-21 17:13 | disposition home or self-care (01) | DRG 280 ==
LOC: SERX 07:34 → SERHOLD 16:32 → S3SX 19:40
PROVIDERS: Physician Assistant; Student in an Organized Health Care Education/Training Program; Admitting Provider Internal Medicine; Emergency Provider Emergency Medicine; PCP Family Medicine; Visit Provider Internal Medicine
DX: K70.31 Alcoholic cirrhosis of liver with ascites (principal); R04.0 Epistaxis; K65.2 Spontaneous bacterial peritonitis; K70.11 Alcoholic hepatitis with ascites; K76.6 Portal hypertension; D68.9 Coagulation defect, unspecified; F10.10 Alcohol abuse, uncomplicated; I10 Essential (primary) hypertension; R78.81 Bacteremia; B95.7 Other staphylococcus as the cause of diseases classified elsewhere; E66.9 Obesity, unspecified; Z68.34 Body mass index [BMI] 34.0-34.9, adult; Z59.86 Financial insecurity; Z56.0 Unemployment, unspecified; Z79.899 Other long term (current) drug therapy
CPT/HCPCS: 36415; 74177; 76705; 80048; 80053; 80061; 80076; 80202; 81001; 82042; 82945; 83615; 83690; 83735; 84100; 84157; 84443; 85025; 85610; 85730; 87040; 87070; 87075; 87077; 87081; 87186; 87205; 89051; 93005; 93225; 93306; 96365; 96372; 99285; A4649; C1729; C1894; J0696; J1642; J2470; J3372; J3430; J3475; J3480; J3490; J7050; J7512; Q9967; S8037; 74181; A9270; C1751

== ENCOUNTER → 2025-05-06 | Outpatient (CLI) | payer MEDICAID, SELFPAY ==
--- NOTE | 2025-05-06 12:00 | XR_ITS ---
Examination: Abdomen sonogram, Limited Date and time of exam: May 06, 2025 1231 hours INDICATIONS: Cirrhosis, increasing distention this week Technique: Real-time eli scale transabdominal sonographic images of the upper abdomen obtained. Findings: Minimal ascitic fluid IMPRESSION: Minimal ascitic fluid
== END | disposition home or self-care (01) ==
PROVIDERS: PCP Family Medicine; Referring Provider Family Medicine; Visit Provider Family Medicine
DX: K70.31 Alcoholic cirrhosis of liver with ascites (principal); Z53.9 Procedure and treatment not carried out, unspecified reason
CPT/HCPCS: 76705